=== PATIENT | female | born 1955 | race Caucasian/White ===

== ENCOUNTER 2016-06-26 05:33 | Inpatient (IN) ==
[2016-06-26] MEDS ORDERED: ALBUTEROL/IPRATROPIUM 3 ML NEB RESP TX STA ×2 (06:07→06:36)
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
[2016-06-26 06:42] LABS: Basophils # 0.1 10*3/uL (0.0-0.2); Basophils % 0.3 % (0.0-0.8); Hematocrit 41.9 VOL% (35.7-47.0); Hemoglobin 13.9 GM/DL (12.0-16.0); Immature Granulocytes % 1.2 %; Immature Granulocytes Absolute 0.33 #; Lymphocytes % 3.4 % (21.3-54.2); Mean Corpuscular HGB Conc 33.2 GM/DL (32-36); Mean Corpuscular Hemoglobin 31 PG (27-34); Mean Corpuscular Volume 94.8 FL (87-102); Mean Platelet Volume 9.8 FL (9.6-12.0); Monocytes # 2.4 10*3/uL (0.11-0.8); Monocytes % 8.5 % (1.7-12.7); Neutrophils # 24.2 10*3/uL (1.4-7.4); Neutrophils % 86.6 % (38.7-73.9); Platelet Count 318 10*3/uL (130-400); Red Blood Count 4.42 10*6/uL (3.8-5.5)
[2016-06-26] MEDS ORDERED: HYDROcodone/CHLORPHENIRAMINE ER 5 ML UDCUP PO ONE ×2 (06:43→06:44)
[2016-06-26 06:57] LABS: Albumin 3.8 G/DL (3.4-5.0); Bilirubin,Total 0.6 MG/DL (0.2-1.0); Calcium 9.7 MG/DL (8.5-10.1); Potassium 5.2 MMOL/L (3.5-5.1); Total Protein 7.6 G/DL (6.4-8.3)
[2016-06-26] MEDS ORDERED: cefTRIAXone 1,000 MG in SODIUM CHLORIDE 0.9% 100 ML IV STA (07:13)
[2016-06-26] MEDS ORDERED: cefTRIAXone 1,000 MG VIAL ONE (07:16)
[2016-06-26] MEDS ORDERED: SODIUM CHLORIDE 0.9% 1,000 ML IV STA (07:29)
[2016-06-26] MEDS ORDERED: MYLANTA/LIDO VISC 2:1 300 ML BOTTLE SWISH/SWAL PRN (07:49)
[2016-06-26] MEDS ORDERED: ACETAMINOPHEN 325 MG TABLET PO PRN (07:49)
[2016-06-26] MEDS ORDERED: PROMETHAZINE INJ 25 MG in SODIUM CHLORIDE 0.9% 50 ML IV PRN (07:49)
[2016-06-26] MEDS ORDERED: LACTULOSE 20 GM/30 ML UDCUP PO PRN (07:49)
[2016-06-26] MEDS ORDERED: chlorproMAZINE 25 MG TABLET PO PRN (07:49)
[2016-06-26] MEDS ORDERED: chlorproMAZINE INJ 25 MG in SODIUM CHLORIDE 0.9% 100 ML IV PRN (07:49)
[2016-06-26] MEDS ORDERED: chlorproMAZINE INJ 50 MG in SODIUM CHLORIDE 0.9% 100 ML IV PRN (07:49)
[2016-06-26] MEDS ORDERED: traMADol 50 MG TABLET PO PRN (07:49)
[2016-06-26] MEDS ORDERED: MAGNESIUM HYDROXIDE SUSP 30 ML UDCUP PO PRN (07:49)
[2016-06-26] MEDS ORDERED: MYLANTA/LIDO VISC 2:1 300 ML BOTTLE SWISH/SPIT PRN (07:49)
[2016-06-26] MEDS ORDERED: TEMAZEPAM 7.5 MG CAPSULE PO PRN (07:49)
[2016-06-26] MEDS ORDERED: diphenhydrAMINE CAP 25 MG CAPSULE PO PRN (07:49)
[2016-06-26] MEDS ORDERED: BENZTROPINE 2 MG/2 ML AMP IV PRN (07:49)
[2016-06-26] MEDS ORDERED: LOPERAMIDE 2 MG CAPSULE PO PRN ×2 (07:49)
--- NOTE | 2016-06-26 08:15 | XRay Report ---
XR chest 1V portable Indication: Shortness of breath. Comparison: Chest x-ray 06/05/2016. Technique: Portable AP chest was performed. Findings: The heart size appears within normal limits. The mediastinal contour and hilar structures demonstrate no significant abnormalities. Left-sided venous access device is stable. Reticular interstitial markings in the lung bases have minimally increased particularly in the right lung base. This finding is nonspecific but could reflect minimal interstitial edema or evidence of interstitial pneumonia. Bones and soft tissues demonstrate no evidence of acute pathology. Impression: 1. Minimal interval worsening of reticular interstitial markings in the lung bases is nonspecific with differential considerations including interstitial edema interstitial pneumonia. 06/26/2016 8:12 AM PROCEDURE INTERPRETED AT [facility] DEPARTMENT OF RADIOLOGY Final Report Signed by: Dr. Tru Garrett
[2016-06-26 08:24] LABS: Uric Acid 5.6 MG/DL (2.6-6.0)
[2016-06-26] MEDS ORDERED: NAPROXEN 500 MG TABLET PO PRN (09:14)
[2016-06-26] MEDS ORDERED: ALBUTEROL 2.5 MG/3 ML NEB RESP TX PRN (09:14)
[2016-06-26] MEDS ORDERED: ROTIGOTINE TRANSDERM PRN (09:14)
[2016-06-26] MEDS ORDERED: ONDANSETRON 4 MG TABLET PO PRN (09:14)
[2016-06-26] MEDS: AZITHROMYCIN INJ 500 MG in SODIUM CHLORIDE 0.9% 250 ML IV SCH (10:13)
[2016-06-26] MEDS: SODIUM CHLORIDE 0.9% 1,000 ML IV SCH (10:13)
--- NOTE | 2016-06-26 10:27 | Event Note ---
Patient admitted with several day complaints of shortness of breath and possible pneumonia. She has some expiratory wheezing and prolonged expiratory phase. Will place on IV antibiotics. History of lung cancer currently on kathy. Chaparroo
[2016-06-26 10:35] LABS: Band Neutrophils 5 % (0-10); Hypochromasia 1+; Lymphocytes 4 % (20-55); Platelet Estimate Adequate; Segmented Neutrophils 85 % (50-85); Total Cells Counted 100
[2016-06-26] MEDS: ONDANSETRON 4 MG/2 ML VIAL IV PRN (11:06)
--- NOTE | 2016-06-26 11:52 | EKG Report ---
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
[2016-06-26] MEDS ORDERED: PROTEASE PO SCH (12:00)
[2016-06-26] MEDS ORDERED: LIPASE PO SCH (12:00)
[2016-06-26] MEDS ORDERED: AMYLASE PO SCH (12:00)
[2016-06-26] MEDS: ALPRAZolam 0.25 MG TABLET PO PRN (12:22)
[2016-06-26] MEDS: GABAPENTIN 300 MG CAPSULE PO SCH ×2 (15:53→20:22)
[2016-06-26] MEDS: ALBUTEROL/IPRATROPIUM 3 ML NEB RESP TX PRN (20:11)
[2016-06-26] MEDS: guaiFENesin 200 MG/10 ML UDCUP PO PRN (23:26)
[2016-06-27] MEDS: SODIUM CHLORIDE 0.9% 1,000 ML IV SCH ×2 (05:35→05:36)
[2016-06-27] MEDS: ALPRAZolam 0.25 MG TABLET PO PRN ×2 (06:13→20:05)
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
[2016-06-27] MEDS: cefTRIAXone 1,000 MG in SODIUM CHLORIDE 0.9% 100 ML IV SCH (08:54)
[2016-06-27] MEDS: GABAPENTIN 300 MG CAPSULE PO SCH ×3 (08:55→21:23)
[2016-06-27 09:58] LABS: Apearance,Urine Slightly Hazy (Clear); Bacteria,Urine Occasional /HPF (Few); Bilirubin,Urine Negative (Negative); Blood, Urine Negative (Negative); Glucose,Urine (UA) Negative (Negative); Ketones,Urine Negative (Negative); Mucus,Urine Occasional /LPF (Occasional); Nitrite,Urine Negative (Negative); Protein,Urine 30 MG/DL; RBC,Urine 2 /HPF (0-4); Squamous Epithelial Cell,Urine Occasional /HPF (0-10); Urine Color Yellow (Yellow); Urine Specific Gravity 1.016 (1.001-1.035); Urine Urobilinogen < 2.0 EU/DL (0.2-1.0); WBC,Urine 3 /HPF (0-6)
[2016-06-27] MEDS: AZITHROMYCIN INJ 500 MG in SODIUM CHLORIDE 0.9% 250 ML IV SCH (11:23)
[2016-06-27] MEDS: ONDANSETRON 4 MG/2 ML VIAL IV PRN (14:19)
[2016-06-27] MEDS: ALBUTEROL/IPRATROPIUM 3 ML NEB RESP TX PRN ×2 (14:37→21:30)
[2016-06-28] MEDS: ALPRAZolam 0.25 MG TABLET PO PRN ×3 (05:23→18:53)
[2016-06-28 05:27] LABS: Basophils % 0.2 % (0.0-0.8); Eosinophils # 0.4 10*3/uL (0.0-0.87); Hematocrit 33.2 VOL% (35.7-47.0); Hemoglobin 10.1 GM/DL (12.0-16.0); Immature Granulocytes % 0.8 %; Lymphocytes # 1.4 10*3/uL (1.4-4.0); Lymphocytes % 11.8 % (21.3-54.2); Mean Corpuscular HGB Conc 30.4 GM/DL (32-36); Mean Corpuscular Hemoglobin 31 PG (27-34); Mean Corpuscular Volume 101.8 FL (87-102); Mean Platelet Volume 10.4 FL (9.6-12.0); Monocytes # 1.2 10*3/uL (0.11-0.8); Monocytes % 10.2 % (1.7-12.7); Platelet Count 248 10*3/uL (130-400); Red Blood Count 3.26 10*6/uL (3.8-5.5); Red Cell Distribution Width 13.1 % (9.3-17.3); White Blood Count 12.2 10*3/uL (4.5-13.71)
[2016-06-28] MEDS: ALBUTEROL/IPRATROPIUM 3 ML NEB RESP TX PRN ×2 (05:30→14:22)
[2016-06-28 06:17] LABS: Albumin 2.6 G/DL (3.4-5.0); Bilirubin,Total 0.9 MG/DL (0.2-1.0); Calcium 8.2 MG/DL (8.5-10.1); Osmolality,Calculated 275.5 MOS/KG (273-304); Potassium 4.9 MMOL/L (3.5-5.1); Total Protein 5.6 G/DL (6.4-8.3)
--- NOTE | 2016-06-28 08:34 | Oncology Progress Note ---
Oncology Subjective PN Interval history: Patient with PDL 1 positive adenocarcinoma of the lung who has been on Keytruda. She was admitted with pneumonitis and acute exacerbation of severe COPD. This may be complicated by the fact that she could have a component of immune pneumonitis secondary to the Keytruda. I am rechecking x-rays on her. She is hypertensive. She has been on COOPER inhibitor and I am not going to restart it. I will start her on a beta-shyanne. She is still hoarse and tachypneic. She still has a prolonged expiratory phase of respiration with wheezing throughout the expiratory phase. Heart sounds are normal. She is oriented and alert. Her voice is very hoarse. Exam - Constitutional Vitals: Period Temp Pulse Resp BP Sys/Chang Pulse Ox Last 24 Hr 96.1 F-97.1 F 82-107 18-22 111-191/56-89 89-99 Results - Labs CBC & BMP: 06/28/16 04:37 06/28/16 04:00 Specialty Discharge - Follow Up or Referrals - Discharge Medications No Action Rotigotine [Neupro 2 mg/24 hr Patch] 1 patch TRANSDERM DAILY PRN PRN Reason: Restlessness Ondansetron HCl 4 mg PO Q6H PRN PRN Reason: Nausea Lipase/Protease/Amylase [Creon 24,000 Units] 2 capsule PO TID W/MEALS Albuterol Neb [Proventil Neb] 2.5 mg RESP TX BID PRN PRN Reason: Shortness Of Breath/Wheezing Lisinopril 40 mg PO DAILY Naproxen [Naprosyn Tab] 500 mg PO Q12H PRN PRN Reason: Restlessness Omeprazole [Prilosec] 40 mg PO DAILY FLUoxetine [PROzac] 40 mg PO DAILY Gabapentin Cap/Tab [Neurontin Cap/Tab] 300 mg PO TID Albuterol Sulfate [Ventolin HFA] 2 puff INH Q6H PRN PRN Reason: Shortness Of Breath/Wheezing Albuterol Sulfate [Ventolin HFA] 2 puff INH Q4H PRN PRN Reason: Shortness Of Breath/Wheezing
[2016-06-28] MEDS: SODIUM CHLORIDE 0.9% 1,000 ML IV SCH (09:03)
--- NOTE | 2016-06-28 09:15 | XRay Report ---
XR chest 2V Indication: Shortness of breath Comparison: One June 2016 Findings: The heart and mediastinum are stable in size and configuration. Left subclavian Port-A-Cath is unchanged in position. The pulmonary vascularity is normal in caliber. There is increasing the right lower lung density in the periphery and possible small effusion. No other lung infiltrates, effusions, pneumothorax or other abnormality is demonstrated. Impression: Slight increased right lower lung density and small effusion. No other significant changes. PROCEDURE INTERPRETED AT [facility] DEPARTMENT OF RADIOLOGY Final Report Signed by: Dr. Trey Estevez
[2016-06-28] MEDS: CARVEDILOL 12.5 MG TABLET PO SCH ×2 (09:30→18:19)
[2016-06-28] MEDS: GABAPENTIN 300 MG CAPSULE PO SCH ×3 (09:30→21:08)
[2016-06-28] MEDS: cefTRIAXone 1,000 MG in SODIUM CHLORIDE 0.9% 100 ML IV SCH (09:31)
[2016-06-28] MEDS: AZITHROMYCIN INJ 500 MG in SODIUM CHLORIDE 0.9% 250 ML IV SCH (10:08)
[2016-06-28] MEDS: ONDANSETRON 4 MG/2 ML VIAL IV PRN (14:23)
[2016-06-28] MEDS ORDERED: FUROSEMIDE 40 MG/4 ML VIAL ONE (14:33)
[2016-06-28] MEDS ORDERED: FUROSEMIDE 40 MG/4 ML VIAL IV ONE (14:35)
[2016-06-28] MEDS ORDERED: hydrALAZINE 20 MG/1 ML VIAL IV PRN (18:22)
--- NOTE | 2016-06-28 18:22 | Oncology Progress Note ---
Oncology Subjective PN Interval history: I am proceeding with Rei-Valery Ms. Cid. Her pulmonary congestion is getting worse and this may be in part due to the Keytruda. I am going to have to reverse the effects of the Keytruda and plan to resume it again later. She is strongly PDL 1 positive but she has begun to worsen from the standpoint of her COPD. Need to treat it with steroids. I am also increasing her carvedilol for her blood pressure control. In addition I am going to order Apresoline as needed for blood pressure control. Exam - Constitutional Vitals: Period Temp Pulse Resp BP Sys/Chang Pulse Ox Last 24 Hr 96.2 F-97.1 F 76-107 18-28 98-191/50-89 88-99 Results - Labs CBC & BMP: 06/28/16 04:37 06/28/16 04:00 Specialty Discharge - Follow Up or Referrals - Discharge Medications No Action Rotigotine [Neupro 2 mg/24 hr Patch] 1 patch TRANSDERM DAILY PRN PRN Reason: Restlessness Ondansetron HCl 4 mg PO Q6H PRN PRN Reason: Nausea Lipase/Protease/Amylase [Creon 24,000 Units] 2 capsule PO TID W/MEALS Albuterol Neb [Proventil Neb] 2.5 mg RESP TX BID PRN PRN Reason: Shortness Of Breath/Wheezing Lisinopril 40 mg PO DAILY Naproxen [Naprosyn Tab] 500 mg PO Q12H PRN PRN Reason: Restlessness Omeprazole [Prilosec] 40 mg PO DAILY FLUoxetine [PROzac] 40 mg PO DAILY Gabapentin Cap/Tab [Neurontin Cap/Tab] 300 mg PO TID Albuterol Sulfate [Ventolin HFA] 2 puff INH Q6H PRN PRN Reason: Shortness Of Breath/Wheezing Albuterol Sulfate [Ventolin HFA] 2 puff INH Q4H PRN PRN Reason: Shortness Of Breath/Wheezing
[2016-06-28] MEDS ORDERED: CARVEDILOL 25 MG TABLET PO ONE (18:39)
[2016-06-28] MEDS: methylPREDNISolone SOD SUC INJ 500 MG in SODIUM CHLORIDE 0.9% 100 ML IV SCH (19:55)
[2016-06-29] MEDS: SODIUM CHLORIDE 0.9% 1,000 ML IV SCH ×2 (01:30→17:05)
[2016-06-29] MEDS: methylPREDNISolone SOD SUC INJ 500 MG in SODIUM CHLORIDE 0.9% 100 ML IV SCH ×2 (07:18→18:15)
--- NOTE | 2016-06-29 07:59 | Oncology Progress Note ---
Oncology Subjective PN Interval history: I started Ms. Cid on Solu-Medrol yesterday. This will temporarily reverse the effects of the Keytruda that she has been receiving for PDL 1 positive adenocarcinoma of the lung. She had severe bronchospasm yesterday. In addition , she has a severe cough. I stopped her COOPER inhibitor and have placed her on a beta-shyanne which may actually worsen her bronchospasm but at least the possibility of an COOPER inhibitor causing hematologic side effects or worsening the cough has been remedied. She is critically ill. However, she appears to have had a good response to treatment of her lung cancer with the Keytruda. Her lung cancer is strongly PDL1 positive. She still has bronchospasm with prolonged expiratory phase of respiration and faint wheezing. Heart sounds are normal. She is extremely hoarse. She has been evaluated for this and it is not due to recurrent laryngeal nerve paralysis. I am consulting Dr. Stuart De Jesus to assist in management of her COPD. I think she has had a good response to the Keytruda and I intend to pick it back up a few more weeks but we are effectively reversing the effects of it presently with the corticosteroid therapy. Exam - Constitutional Vitals: Period Temp Pulse Resp BP Sys/Chang Pulse Ox Last 24 Hr 96.2 F-98 F 68-94 18-28 98-185/50-88 88-100 Results - Labs CBC & BMP: 06/28/16 04:37 06/28/16 04:00 Specialty Discharge - Follow Up or Referrals - Discharge Medications No Action Rotigotine [Neupro 2 mg/24 hr Patch] 1 patch TRANSDERM DAILY PRN PRN Reason: Restlessness Ondansetron HCl 4 mg PO Q6H PRN PRN Reason: Nausea Lipase/Protease/Amylase [Creon 24,000 Units] 2 capsule PO TID W/MEALS Albuterol Neb [Proventil Neb] 2.5 mg RESP TX BID PRN PRN Reason: Shortness Of Breath/Wheezing Lisinopril 40 mg PO DAILY Naproxen [Naprosyn Tab] 500 mg PO Q12H PRN PRN Reason: Restlessness Omeprazole [Prilosec] 40 mg PO DAILY FLUoxetine [PROzac] 40 mg PO DAILY Gabapentin Cap/Tab [Neurontin Cap/Tab] 300 mg PO TID Albuterol Sulfate [Ventolin HFA] 2 puff INH Q6H PRN PRN Reason: Shortness Of Breath/Wheezing Albuterol Sulfate [Ventolin HFA] 2 puff INH Q4H PRN PRN Reason: Shortness Of Breath/Wheezing
[2016-06-29] MEDS: CARVEDILOL 25 MG TABLET PO SCH ×2 (08:48→17:05)
[2016-06-29] MEDS: GABAPENTIN 300 MG CAPSULE PO SCH ×3 (08:48→20:54)
[2016-06-29] MEDS: cefTRIAXone 1,000 MG in SODIUM CHLORIDE 0.9% 100 ML IV SCH (08:48)
[2016-06-29] MEDS: ALBUTEROL/IPRATROPIUM 3 ML NEB RESP TX PRN (08:48)
[2016-06-29] MEDS: ALPRAZolam 0.25 MG TABLET PO PRN (08:55)
[2016-06-29] MEDS: AZITHROMYCIN INJ 500 MG in SODIUM CHLORIDE 0.9% 250 ML IV SCH (10:12)
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
[2016-06-29] MEDS: ALBUTEROL/IPRATROPIUM 3 ML NEB RESP TX SCH (20:29)
[2016-06-30] MEDS: ALBUTEROL/IPRATROPIUM 3 ML NEB RESP TX SCH ×7 (00:20→23:57)
[2016-06-30] MEDS: guaiFENesin 200 MG/10 ML UDCUP PO PRN (04:25)
[2016-06-30] MEDS: ALPRAZolam 0.25 MG TABLET PO PRN ×2 (04:30→15:05)
[2016-06-30] MEDS: methylPREDNISolone SOD SUC INJ 500 MG in SODIUM CHLORIDE 0.9% 100 ML IV SCH ×2 (07:16→18:22)
[2016-06-30] MEDS: SODIUM CHLORIDE 0.9% 1,000 ML IV SCH (07:16)
--- NOTE | 2016-06-30 08:25 | Pulmonology Progress Note ---
Pulmonary - PN: Subj Interval history: Patient is 60-year-old white lady that has a history of lung cancer. She also has significant COPD. She comes in with an exacerbation and probable pneumonia. She says she feels like she is breathing a little better today. She is still very hoarse and coughing a lot. She gets short of breath quite easily. She is tolerating her medicines okay. She is getting high-dose steroids now. She is eating a little but really can't do much activity. Exam (Progress Note) - Constitutional Vitals: Period Temp Pulse Resp BP Sys/Chang Pulse Ox Last 24 Hr 96.0 F-97.0 F 64-115 18-24 96-142/51-78 88-99 Exam: General appearance: normal weight, mild distress, she looks reasonably comfortable lying in bed. - Head Head exam: Present: normal inspection - Eye Eye exam: Present: EOMI. Absent: scleral icterus Pupils: Present: BHARATH - ENT ENT exam: Present: She is very hoarse. - Neck Neck exam: Present: normal inspection. Absent: lymphadenopathy, thyromegaly - Respiratory Respiratory exam: Present: She has very prolonged expiration with coarse breath sounds and rhonchi present. - Cardiovascular Cardiovascular exam: Present: regular rate and rhythm. Absent: gallop, systolic murmur - GI/Abdominal GI/Abdominal exam: Present: normal bowel sounds, soft. Absent: organomegaly, tenderness, rebound - Extremities Exam Extremities exam: Absent: calf tenderness, edema, she has no signs of phlebitis. - Neurological Exam Neurological exam: Present: alert, oriented X3 - Psychiatric Psychiatric exam: Present: depressed - Skin Skin exam: Present: warm, dry Results - Labs CBC & BMP: 06/28/16 04:37 06/28/16 04:00 Labs: Blood and urine cultures have been negative. Assessment and Plan (1) COPD (chronic obstructive pulmonary disease) Status: Acute Assessment and plan: The patient has been having a COPD exacerbation with coughing and wheezing and gets very short of breath with activity. She seems to be tolerating her medicines okay. She still has considerable bronchitis. She may need a therapeutic bronchoscopy at some point. Current Visit: No (2) Adenocarcinoma of right lung Status: Acute Assessment and plan: The patient has right upper lobe cancer but is responding fairly well. It is hard to see a definite mass on her chest x-ray. Current Visit: Yes (3) Pneumonia Status: Acute Assessment and plan: Patient may have mild right lower lobe pneumonia. She is getting antibiotic therapy. She seems to be tolerating treatment okay so far. Current Visit: Yes Specialty Discharge - Follow Up or Referrals - Discharge Medications No Action Rotigotine [Neupro 2 mg/24 hr Patch] 1 patch TRANSDERM DAILY PRN PRN Reason: Restlessness Ondansetron HCl 4 mg PO Q6H PRN PRN Reason: Nausea Lipase/Protease/Amylase [Creon 24,000 Units] 2 capsule PO TID W/MEALS Albuterol Neb [Proventil Neb] 2.5 mg RESP TX BID PRN PRN Reason: Shortness Of Breath/Wheezing Lisinopril 40 mg PO DAILY Naproxen [Naprosyn Tab] 500 mg PO Q12H PRN PRN Reason: Restlessness Omeprazole [Prilosec] 40 mg PO DAILY FLUoxetine [PROzac] 40 mg PO DAILY Gabapentin Cap/Tab [Neurontin Cap/Tab] 300 mg PO TID Albuterol Sulfate [Ventolin HFA] 2 puff INH Q6H PRN PRN Reason: Shortness Of Breath/Wheezing Albuterol Sulfate [Ventolin HFA] 2 puff INH Q4H PRN PRN Reason: Shortness Of Breath/Wheezing
--- NOTE | 2016-06-30 08:51 | Oncology Progress Note ---
Oncology Subjective PN Interval history: Ms. Cid remains hospitalized with an acute exacerbation of COPD that may be complicated by pulmonary toxicity from Keytruda. She has an unresectable adenocarcinoma of the lung that is strongly PDL 1 positive and she has been on Keytruda with a good response. She had previously responded to conventional chemotherapy and then progressed. Dr. De Jesus saw her yesterday. I appreciate his assistance in managing her case. She has significantly less bronchospasm today and her expiratory phase of respiration is slightly less prolonged. However she still has some significant COPD. She is on large doses of corticosteroids which I will continue for at least another day before tapering. Exam - Constitutional Vitals: Period Temp Pulse Resp BP Sys/Chang Pulse Ox Last 24 Hr 96.0 F-97.0 F 64-115 18-24 96-142/51-78 88-99 Results - Labs CBC & BMP: 06/28/16 04:37 06/28/16 04:00 Specialty Discharge - Follow Up or Referrals - Discharge Medications No Action Rotigotine [Neupro 2 mg/24 hr Patch] 1 patch TRANSDERM DAILY PRN PRN Reason: Restlessness Ondansetron HCl 4 mg PO Q6H PRN PRN Reason: Nausea Lipase/Protease/Amylase [Creon 24,000 Units] 2 capsule PO TID W/MEALS Albuterol Neb [Proventil Neb] 2.5 mg RESP TX BID PRN PRN Reason: Shortness Of Breath/Wheezing Lisinopril 40 mg PO DAILY Naproxen [Naprosyn Tab] 500 mg PO Q12H PRN PRN Reason: Restlessness Omeprazole [Prilosec] 40 mg PO DAILY FLUoxetine [PROzac] 40 mg PO DAILY Gabapentin Cap/Tab [Neurontin Cap/Tab] 300 mg PO TID Albuterol Sulfate [Ventolin HFA] 2 puff INH Q6H PRN PRN Reason: Shortness Of Breath/Wheezing Albuterol Sulfate [Ventolin HFA] 2 puff INH Q4H PRN PRN Reason: Shortness Of Breath/Wheezing
[2016-06-30] MEDS: GABAPENTIN 300 MG CAPSULE PO SCH ×3 (09:13→21:49)
[2016-06-30] MEDS: CARVEDILOL 25 MG TABLET PO SCH ×2 (09:13→18:21)
[2016-06-30] MEDS: cefTRIAXone 1,000 MG in SODIUM CHLORIDE 0.9% 100 ML IV SCH (09:14)
[2016-06-30] MEDS: AZITHROMYCIN INJ 500 MG in SODIUM CHLORIDE 0.9% 250 ML IV SCH (10:07)
[2016-07-01] MEDS: SODIUM CHLORIDE 0.9% 1,000 ML IV SCH ×2 (01:19→14:27)
[2016-07-01] MEDS: ALBUTEROL/IPRATROPIUM 3 ML NEB RESP TX SCH ×5 (03:56→20:06)
[2016-07-01] MEDS: methylPREDNISolone SOD SUC INJ 500 MG in SODIUM CHLORIDE 0.9% 100 ML IV SCH (06:27)
[2016-07-01] MEDS: guaiFENesin 200 MG/10 ML UDCUP PO PRN (06:43)
[2016-07-01] MEDS: CARVEDILOL 25 MG TABLET PO SCH ×2 (08:40→16:59)
[2016-07-01] MEDS: ALPRAZolam 0.25 MG TABLET PO PRN ×2 (08:41→14:27)
[2016-07-01] MEDS: cefTRIAXone 1,000 MG in SODIUM CHLORIDE 0.9% 100 ML IV SCH (08:41)
[2016-07-01] MEDS: GABAPENTIN 300 MG CAPSULE PO SCH ×3 (08:43→20:29)
[2016-07-01] MEDS: AZITHROMYCIN INJ 500 MG in SODIUM CHLORIDE 0.9% 250 ML IV SCH (10:22)
--- NOTE | 2016-07-01 11:21 | Pulmonology Progress Note ---
Pulmonary - PN: Subj Interval history: This is a 60-year-old female who has COPD and lung cancer. She has been receiving chemotherapy. There has been some improvement in her cancer. She was admitted with pneumonia. Patient is debilitated. She looks comfortable today and says she is a little better. She has no new requests. She has no new complaints. Lab was reviewed. Medicines are reviewed. Old chest x-rays were reviewed. Last one was done 06/28/2016. Physical exam. Vital signs. See below Chest. Loose large airway congestion Heart. No gallop Abdomen. Nontender bowel sounds are present Lower extremities. Nothing to suggest deep venous thrombophlebitis Neck. Symmetrical. No meningismus. Eyes appear to be normal lips and tongue were normal. The remainder the physical exam was noncontributory. Plan. 1. Continue present regimen. 2. I made no changes today. Exam (Progress Note) - Constitutional Vitals: Period Temp Pulse Resp BP Sys/Chang Pulse Ox Last 24 Hr 96.3 F-97.2 F 67-77 14-24 109-179/58-86 96-99 Results - Labs CBC & BMP: 06/28/16 04:37 06/28/16 04:00 Specialty Discharge - Follow Up or Referrals - Discharge Medications No Action Rotigotine [Neupro 2 mg/24 hr Patch] 1 patch TRANSDERM DAILY PRN PRN Reason: Restlessness Ondansetron HCl 4 mg PO Q6H PRN PRN Reason: Nausea Lipase/Protease/Amylase [Creon 24,000 Units] 2 capsule PO TID W/MEALS Albuterol Neb [Proventil Neb] 2.5 mg RESP TX BID PRN PRN Reason: Shortness Of Breath/Wheezing Lisinopril 40 mg PO DAILY Naproxen [Naprosyn Tab] 500 mg PO Q12H PRN PRN Reason: Restlessness Omeprazole [Prilosec] 40 mg PO DAILY FLUoxetine [PROzac] 40 mg PO DAILY Gabapentin Cap/Tab [Neurontin Cap/Tab] 300 mg PO TID Albuterol Sulfate [Ventolin HFA] 2 puff INH Q6H PRN PRN Reason: Shortness Of Breath/Wheezing Albuterol Sulfate [Ventolin HFA] 2 puff INH Q4H PRN PRN Reason: Shortness Of Breath/Wheezing
[2016-07-01] MEDS ORDERED: methylPREDNISolone SOD SUC INJ 125 MG in SODIUM CHLORIDE 0.9% 100 ML IV SCH (12:00)
--- NOTE | 2016-07-01 12:02 | Oncology Progress Note ---
Oncology Subjective PN Interval history: Ms. Cid has some worsening of her COPD today. She has underlying PDL 1 positive adenocarcinoma lung that has probably achieved a complete remission using Keytruda. I reversed the Keytruda by administering corticosteroids starting day before yesterday. I am reducing the dose of the steroids today. It appears that most of her problems now are the severe COPD for which she suffers. She has a very prolonged expiratory phase of respiration. She is hoarse but she has been evaluated for this by ENT. She does not have recurrent laryngeal nerve paralysis. Heart sounds are normal. Her breath sounds are slightly coarse throughout. None are markedly decreased. She is fully oriented and alert. Exam - Constitutional Vitals: Period Temp Pulse Resp BP Sys/Chang Pulse Ox Last 24 Hr 96.3 F-97.2 F 67-77 14-24 109-179/58-86 96-99 Results - Labs CBC & BMP: 06/28/16 04:37 06/28/16 04:00 Specialty Discharge - Follow Up or Referrals - Discharge Medications No Action Rotigotine [Neupro 2 mg/24 hr Patch] 1 patch TRANSDERM DAILY PRN PRN Reason: Restlessness Ondansetron HCl 4 mg PO Q6H PRN PRN Reason: Nausea Lipase/Protease/Amylase [Creon 24,000 Units] 2 capsule PO TID W/MEALS Albuterol Neb [Proventil Neb] 2.5 mg RESP TX BID PRN PRN Reason: Shortness Of Breath/Wheezing Lisinopril 40 mg PO DAILY Naproxen [Naprosyn Tab] 500 mg PO Q12H PRN PRN Reason: Restlessness Omeprazole [Prilosec] 40 mg PO DAILY FLUoxetine [PROzac] 40 mg PO DAILY Gabapentin Cap/Tab [Neurontin Cap/Tab] 300 mg PO TID Albuterol Sulfate [Ventolin HFA] 2 puff INH Q6H PRN PRN Reason: Shortness Of Breath/Wheezing Albuterol Sulfate [Ventolin HFA] 2 puff INH Q4H PRN PRN Reason: Shortness Of Breath/Wheezing
[2016-07-01] MEDS: BENZONATATE 100 MG CAPSULE PO PRN (14:27)
[2016-07-02] MEDS: ALBUTEROL/IPRATROPIUM 3 ML NEB RESP TX SCH ×6 (00:25→19:09)
[2016-07-02] MEDS: guaiFENesin 200 MG/10 ML UDCUP PO PRN (03:00)
[2016-07-02] MEDS: methylPREDNISolone SOD SUC INJ 125 MG in SODIUM CHLORIDE 0.9% 100 ML IV SCH ×2 (03:00→13:38)
[2016-07-02] MEDS: ALPRAZolam 0.25 MG TABLET PO PRN ×2 (03:02→09:27)
[2016-07-02] MEDS: ONDANSETRON 4 MG/2 ML VIAL IV PRN (05:50)
[2016-07-02 06:06] LABS: Basophils % 0.2 % (0.0-0.8); Hematocrit 33.8 VOL% (35.7-47.0); Hemoglobin 10.6 GM/DL (12.0-16.0); Immature Granulocytes % 2.9 %; Immature Granulocytes Absolute 0.17 #; Lymphocytes # 0.7 10*3/uL (1.4-4.0); Lymphocytes % 11.5 % (21.3-54.2); Mean Corpuscular HGB Conc 31.4 GM/DL (32-36); Mean Corpuscular Hemoglobin 31 PG (27-34); Mean Corpuscular Volume 98.3 FL (87-102); Mean Platelet Volume 9.8 FL (9.6-12.0); Monocytes # 0.3 10*3/uL (0.11-0.8); Monocytes % 5.8 % (1.7-12.7); Neutrophils # 4.7 10*3/uL (1.4-7.4); Neutrophils % 79.6 % (38.7-73.9); Platelet Count 335 10*3/uL (130-400); Red Blood Count 3.44 10*6/uL (3.8-5.5); Red Cell Distribution Width 12.8 % (9.3-17.3); White Blood Count 5.8 10*3/uL (4.5-13.71)
[2016-07-02 06:53] LABS: Albumin 2.7 G/DL (3.4-5.0); Bilirubin,Total 1.2 MG/DL (0.2-1.0); Calcium 8.3 MG/DL (8.5-10.1); Osmolality,Calculated 282.4 MOS/KG (273-304); Potassium 5.1 MMOL/L (3.5-5.1); Total Protein 5.5 G/DL (6.4-8.3)
[2016-07-02] MEDS: SODIUM CHLORIDE 0.9% 1,000 ML IV SCH (07:34)
[2016-07-02] MEDS: BENZONATATE 100 MG CAPSULE PO PRN ×2 (09:06→13:38)
[2016-07-02] MEDS: cefTRIAXone 1,000 MG in SODIUM CHLORIDE 0.9% 100 ML IV SCH (09:26)
[2016-07-02] MEDS: GABAPENTIN 300 MG CAPSULE PO SCH ×3 (09:27→21:44)
[2016-07-02] MEDS: CARVEDILOL 25 MG TABLET PO SCH ×2 (09:27→18:40)
[2016-07-02] MEDS: AZITHROMYCIN INJ 500 MG in SODIUM CHLORIDE 0.9% 250 ML IV SCH (10:38)
--- NOTE | 2016-07-02 12:05 | Pulmonology Progress Note ---
Pulmonary - PN: Subj Interval history: 07/01/2016. This is a 60-year-old female who has COPD and lung cancer. She has been receiving chemotherapy. There has been some improvement in her cancer. She was admitted with pneumonia. Patient is debilitated. She looks comfortable today and says she is a little better. She has no new requests. She has no new complaints. Lab was reviewed. Medicines are reviewed. Old chest x-rays were reviewed. Last one was done 06/28/2016. 07/02/2016. Patient states she was up all night with restless leg syndrome. She is found a medicine which works but pharmacy does not carry it. Dr. Thao will take a look and help advise what should be done. Microbiology is negative. White count 7300. H&H is 10.0/32.0. Sodium is 148. Potassium 3.8. Creatinine is 0.6 BUN is 10. There were no new requests other than those concerning her restless leg syndrome. Physical exam. Vital signs. See below Chest. Loose large airway congestion has improved. Chest is hyperinflated and expiration is prolonged and incomplete. Heart. No gallop Abdomen. Nontender bowel sounds are present Lower extremities. Nothing to suggest deep venous thrombophlebitis Neck. Symmetrical. No meningismus. Eyes appear to be normal lips and tongue were normal. The remainder the physical exam was noncontributory. Plan. 1. Continue present regimen. 2. I made no changes today. 3. Restless leg syndrome is a problem. Patient is found a medicine that helps but pharmacy does not carry it. Exam (Progress Note) - Constitutional Vitals: Period Temp Pulse Resp BP Sys/Chang Pulse Ox Last 24 Hr 96.5 F-97.4 F 60-103 16-23 141-158/66-75 95-100 Results - Labs CBC & BMP: 07/02/16 04:00 07/02/16 04:00 Specialty Discharge - Follow Up or Referrals - Discharge Medications No Action Rotigotine [Neupro 2 mg/24 hr Patch] 1 patch TRANSDERM DAILY PRN PRN Reason: Restlessness Ondansetron HCl 4 mg PO Q6H PRN PRN Reason: Nausea Lipase/Protease/Amylase [Creon 24,000 Units] 2 capsule PO TID W/MEALS Albuterol Neb [Proventil Neb] 2.5 mg RESP TX BID PRN PRN Reason: Shortness Of Breath/Wheezing Lisinopril 40 mg PO DAILY Naproxen [Naprosyn Tab] 500 mg PO Q12H PRN PRN Reason: Restlessness Omeprazole [Prilosec] 40 mg PO DAILY FLUoxetine [PROzac] 40 mg PO DAILY Gabapentin Cap/Tab [Neurontin Cap/Tab] 300 mg PO TID Albuterol Sulfate [Ventolin HFA] 2 puff INH Q6H PRN PRN Reason: Shortness Of Breath/Wheezing Albuterol Sulfate [Ventolin HFA] 2 puff INH Q4H PRN PRN Reason: Shortness Of Breath/Wheezing
--- NOTE | 2016-07-02 12:32 | Oncology Progress Note ---
Oncology Subjective PN Interval history: This patient has restless leg syndrome. Her prescription medication for it is at home and she has no one to get it. The pharmacy refuses to supply it. This is a patient with severe COPD and a history of adenocarcinoma of the lung that is PDL 1 positive. She is actually in an apparent complete remission from the lung cancer which she was admitted with extremely severe COPD. She is anemic, however this is not serious enough to require transfusion. She is complaining about dyspnea and she still has a very prolonged expiratory phase of respiration with relatively silent breath sounds. There are a few faint wheezes but she is really not moving much air. At this point, her lung cancer is not a problem, it is her COPD that is causing most of her difficulty. She is not happy about being denied her home medication and we will ask the patient advocate to check on this tomorrow. Exam - Constitutional Vitals: Period Temp Pulse Resp BP Sys/Chang Pulse Ox Last 24 Hr 96.5 F-97.4 F 60-103 16-23 141-158/66-75 95-100 Results - Labs CBC & BMP: 07/02/16 04:00 07/02/16 04:00 Specialty Discharge - Follow Up or Referrals - Discharge Medications No Action Rotigotine [Neupro 2 mg/24 hr Patch] 1 patch TRANSDERM DAILY PRN PRN Reason: Restlessness Ondansetron HCl 4 mg PO Q6H PRN PRN Reason: Nausea Lipase/Protease/Amylase [Creon 24,000 Units] 2 capsule PO TID W/MEALS Albuterol Neb [Proventil Neb] 2.5 mg RESP TX BID PRN PRN Reason: Shortness Of Breath/Wheezing Lisinopril 40 mg PO DAILY Naproxen [Naprosyn Tab] 500 mg PO Q12H PRN PRN Reason: Restlessness Omeprazole [Prilosec] 40 mg PO DAILY FLUoxetine [PROzac] 40 mg PO DAILY Gabapentin Cap/Tab [Neurontin Cap/Tab] 300 mg PO TID Albuterol Sulfate [Ventolin HFA] 2 puff INH Q6H PRN PRN Reason: Shortness Of Breath/Wheezing Albuterol Sulfate [Ventolin HFA] 2 puff INH Q4H PRN PRN Reason: Shortness Of Breath/Wheezing
[2016-07-02] MEDS ORDERED: PRAMIPEXOLE 0.25 MG TABLET PO SCH (21:00)
[2016-07-03] MEDS: SODIUM CHLORIDE 0.9% 1,000 ML IV SCH ×3 (00:11→17:42)
[2016-07-03] MEDS: ALBUTEROL/IPRATROPIUM 3 ML NEB RESP TX SCH ×6 (00:18→20:58)
[2016-07-03] MEDS: methylPREDNISolone SOD SUC INJ 125 MG in SODIUM CHLORIDE 0.9% 100 ML IV SCH ×2 (02:29→15:07)
[2016-07-03] MEDS: guaiFENesin 200 MG/10 ML UDCUP PO PRN (07:09)
--- NOTE | 2016-07-03 07:23 | Oncology Progress Note ---
Oncology Subjective PN Interval history: Ms. Cid remains hospitalized with severe respiratory distress due to severe COPD. She has underlying adenocarcinoma of the lung that is PDL1 positive. We have reverse the effects of the Keytruda which she has had an excellent response to treatment. Her problem presently is her severe COPD. She needs to be considered possibly for some type of care home facility or swing bed at this point. She has multiple complaints, some of which we cannot really fix. She has severe COPD. She has restless leg syndrome in the hospital does not provide her usual medication for it. I have started her on Mirapex and it is helpful. I think we can start working on swing bed or some other care home facility for her. I do not anticipate resuming treatment for her lung cancer anytime within the next 3-4 weeks. She is in complete remission from her adenocarcinoma of the lung. Exam - Constitutional Vitals: Period Temp Pulse Resp BP Sys/Chang Pulse Ox Last 24 Hr 96.2 F-97.1 F 59-103 18-25 147-180/65-88 95-100 Results - Labs CBC & BMP: 07/02/16 04:00 07/02/16 04:00 Specialty Discharge - Follow Up or Referrals - Discharge Medications No Action Rotigotine [Neupro 2 mg/24 hr Patch] 1 patch TRANSDERM DAILY PRN PRN Reason: Restlessness Ondansetron HCl 4 mg PO Q6H PRN PRN Reason: Nausea Lipase/Protease/Amylase [Creon 24,000 Units] 2 capsule PO TID W/MEALS Albuterol Neb [Proventil Neb] 2.5 mg RESP TX BID PRN PRN Reason: Shortness Of Breath/Wheezing Lisinopril 40 mg PO DAILY Naproxen [Naprosyn Tab] 500 mg PO Q12H PRN PRN Reason: Restlessness Omeprazole [Prilosec] 40 mg PO DAILY FLUoxetine [PROzac] 40 mg PO DAILY Gabapentin Cap/Tab [Neurontin Cap/Tab] 300 mg PO TID Albuterol Sulfate [Ventolin HFA] 2 puff INH Q6H PRN PRN Reason: Shortness Of Breath/Wheezing Albuterol Sulfate [Ventolin HFA] 2 puff INH Q4H PRN PRN Reason: Shortness Of Breath/Wheezing
--- NOTE | 2016-07-03 08:01 | XRay Report ---
History: COPD and pneumonia Date: 07/03/2016 Study: Chest x-ray AP portable Comparison exam: Chest x-ray June 28, 2016 A left subclavian Mediport type catheter is stable in position. The cardiac silhouette is borderline prominent. The mediastinal contours are unchanged. The pulmonary vasculature is not engorged. Mild right-sided pleural effusion is the same or slightly increased. Right basilar pneumonia is the same or slightly increased. There is mild subsegmental atelectasis in the left lung base. There is mild platelike scar or atelectasis in the right upper lung. The osseous structures are unchanged. Impression: Continued right basilar pneumonia and pleural effusion, the same or slightly increased PROCEDURE INTERPRETED AT [facility] DEPARTMENT OF RADIOLOGY Final Report Signed by: Dr. Jessica Krishnan
[2016-07-03] MEDS: GABAPENTIN 300 MG CAPSULE PO SCH ×3 (09:15→21:15)
[2016-07-03] MEDS: ALPRAZolam 0.25 MG TABLET PO PRN ×3 (09:15→21:14)
[2016-07-03] MEDS: CARVEDILOL 25 MG TABLET PO SCH ×2 (09:15→17:42)
[2016-07-03] MEDS: cefTRIAXone 1,000 MG in SODIUM CHLORIDE 0.9% 100 ML IV SCH (09:16)
[2016-07-03] MEDS: AZITHROMYCIN INJ 500 MG in SODIUM CHLORIDE 0.9% 250 ML IV SCH (10:52)
--- NOTE | 2016-07-03 15:49 | Physician Query Form ---
CLICK EDIT DOCUMENT TO SELECT QUERY ANSWER --> OK --> SIGN Clari Vaca RN Clinical Can Filling And Closing Machine Tender W) [phone] (f) [phone] [email or web address]: Make your selection(s) from the choices in EACH section by typing an "x" and enter comments in the comment section. Please use your independent medical judgment in providing your response. This request does not imply that any particular answer is desired or expected. CLINICAL INDICATORS: (Providers should not edit this section) Based on documentation of "severe respiratory distress due to severe COPD". O2 sats=88%. Pt. placed on 15L O2 via venture mask. O2 sats up to 100%. If possible, please further clarify the type and acuity of respiratory diagnosis : ACUITY: ( ) Acute ( ) Chronic (x ) Acute on Chronic TYPE: (x ) Respiratory failure with hypoxia ( ) Respiratory failure with hypercapnia ( ) Respiratory Arrest ( ) Postprocedural/postoperative respiratory failure ( ) Respiratory Insufficiency ( ) ARDS (Adult/Acute Respiratory Distress Syndrome) ( ) Other, please specify: ( ) Clinically unable to determine Recognized criteria for respiratory failure PH <7.35 or >7.45 PO2 <60 PCO2 >50 RR >24 O2 Sat <90% on RA or <95% on O2 Use of accessory muscles Unable to speak in full sentences Intubation is not required COMMENTS: Use of terms such as suspected, likely, or probable (associated with a specific diagnosis that is being evaluated, monitored, or treated as if it exists) are acceptable and can be restated in the discharge summary if not ruled out. MTDD
--- NOTE | 2016-07-03 17:57 | Pulmonology Progress Note ---
Pulmonary - PN: Subj Interval history: Patient is 60-year-old white lady that has a history of lung cancer. She also has significant COPD. She comes in with an exacerbation and probable pneumonia. She has been getting antibiotics and steroids and respiratory therapy. She looks much better today and is sitting up in a chair. She is still using oxygen but seems to be breathing much better. She feels like her cough and shortness of breath have improved. Overall she looks like she is doing better. Exam (Progress Note) - Constitutional Vitals: Period Temp Pulse Resp BP Sys/Chang Pulse Ox Last 24 Hr 96.0 F-97.1 F 57-72 18-25 139-184/65-81 95-100 Exam: General appearance: normal weight, no distress, she looks much more alert and comfortable sitting up in a chair. - Head Head exam: Present: normal inspection - Eye Eye exam: Present: EOMI. Absent: scleral icterus Pupils: Present: BHARATH - ENT ENT exam: Present: She is very hoarse. - Neck Neck exam: Present: normal inspection. Absent: lymphadenopathy, thyromegaly - Respiratory Respiratory exam: Present: She has very prolonged expiration with coarse breath sounds she seems to be moving air better with less wheezing. - Cardiovascular Cardiovascular exam: Present: regular rate and rhythm. Absent: gallop, systolic murmur - GI/Abdominal GI/Abdominal exam: Present: normal bowel sounds, soft. Absent: organomegaly, tenderness, rebound - Extremities Exam Extremities exam: Absent: calf tenderness, edema, she has no signs of phlebitis. - Neurological Exam Neurological exam: Present: alert, oriented X3 - Psychiatric Psychiatric exam: Present: depressed - Skin Skin exam: Present: warm, dry Results - Labs CBC & BMP: 07/02/16 04:00 07/02/16 04:00 Assessment and Plan (1) COPD (chronic obstructive pulmonary disease) Status: Acute Assessment and plan: The patient has been having a COPD exacerbation with coughing and wheezing and gets very short of breath with activity. She seems to be tolerating her medicines okay. She looks better today and is clearly improving with her breathing. Current Visit: No (2) Adenocarcinoma of right lung Status: Acute Assessment and plan: The patient has right upper lobe cancer but is responding fairly well. It is hard to see a definite mass on her chest x-ray. So far she is reasonably stable at present. Current Visit: Yes (3) Pneumonia Status: Acute Assessment and plan: Patient may have mild right lower lobe pneumonia. She is getting antibiotic therapy. She seems to be tolerating treatment okay so far. Current Visit: Yes Specialty Discharge - Follow Up or Referrals - Discharge Medications No Action Rotigotine [Neupro 2 mg/24 hr Patch] 1 patch TRANSDERM DAILY PRN PRN Reason: Restlessness Ondansetron HCl 4 mg PO Q6H PRN PRN Reason: Nausea Lipase/Protease/Amylase [Creon 24,000 Units] 2 capsule PO TID W/MEALS Albuterol Neb [Proventil Neb] 2.5 mg RESP TX BID PRN PRN Reason: Shortness Of Breath/Wheezing Lisinopril 40 mg PO DAILY Naproxen [Naprosyn Tab] 500 mg PO Q12H PRN PRN Reason: Restlessness Omeprazole [Prilosec] 40 mg PO DAILY FLUoxetine [PROzac] 40 mg PO DAILY Gabapentin Cap/Tab [Neurontin Cap/Tab] 300 mg PO TID Albuterol Sulfate [Ventolin HFA] 2 puff INH Q6H PRN PRN Reason: Shortness Of Breath/Wheezing Albuterol Sulfate [Ventolin HFA] 2 puff INH Q4H PRN PRN Reason: Shortness Of Breath/Wheezing
[2016-07-03] MEDS: PRAMIPEXOLE 0.25 MG TABLET PO SCH (21:14)
[2016-07-04] MEDS: ALBUTEROL/IPRATROPIUM 3 ML NEB RESP TX SCH ×5 (00:04→14:32)
[2016-07-04] MEDS: methylPREDNISolone SOD SUC INJ 125 MG in SODIUM CHLORIDE 0.9% 100 ML IV SCH ×2 (02:01→15:18)
[2016-07-04] MEDS: SODIUM CHLORIDE 0.9% 1,000 ML IV SCH ×2 (06:44)
--- NOTE | 2016-07-04 07:51 | Oncology Progress Note ---
Oncology Subjective PN Interval history: This lady was admitted with acute exacerbation of COPD. She may have had marginal pneumonitis but there was no overt infiltrate and there was no actual evidence of her adenocarcinoma of the lung. She has been treated with Keytruda and apparently has responded well. It appears that the lung cancer has cleared for the most part. I actually reversed the side effects of the Keytruda earlier in this day because it can cause an immune pneumonitis. On reviewing her chest x-ray from yesterday, she does have blunting of the right costophrenic angle. It may be appropriate to check a CT of her chest, abdomen and pelvis now, with contrast, to reevaluate her lung cancer. See my orders. Exam - Constitutional Vitals: Period Temp Pulse Resp BP Sys/Chang Pulse Ox Last 24 Hr 96.0 F-96.9 F 57-72 15-21 116-184/57-79 93-100 Results - Labs CBC & BMP: 07/02/16 04:00 07/02/16 04:00 Specialty Discharge - Follow Up or Referrals - Discharge Medications No Action Rotigotine [Neupro 2 mg/24 hr Patch] 1 patch TRANSDERM DAILY PRN PRN Reason: Restlessness Ondansetron HCl 4 mg PO Q6H PRN PRN Reason: Nausea Lipase/Protease/Amylase [Creon 24,000 Units] 2 capsule PO TID W/MEALS Albuterol Neb [Proventil Neb] 2.5 mg RESP TX BID PRN PRN Reason: Shortness Of Breath/Wheezing Lisinopril 40 mg PO DAILY Naproxen [Naprosyn Tab] 500 mg PO Q12H PRN PRN Reason: Restlessness Omeprazole [Prilosec] 40 mg PO DAILY FLUoxetine [PROzac] 40 mg PO DAILY Gabapentin Cap/Tab [Neurontin Cap/Tab] 300 mg PO TID Albuterol Sulfate [Ventolin HFA] 2 puff INH Q6H PRN PRN Reason: Shortness Of Breath/Wheezing Albuterol Sulfate [Ventolin HFA] 2 puff INH Q4H PRN PRN Reason: Shortness Of Breath/Wheezing
[2016-07-04] MEDS ORDERED: FUROSEMIDE 40 MG/4 ML VIAL IV ONE (09:49)
--- NOTE | 2016-07-04 10:05 | Pulmonology Progress Note ---
Pulmonary - PN: Subj Interval history: Patient is 60-year-old white lady that has a history of lung cancer. She also has significant COPD. She comes in with an exacerbation and probable pneumonia. She has been getting antibiotics and steroids and respiratory therapy. She looks much better today and is sitting up in a chair. She is still using oxygen but seems to be breathing much better. She feels like she has a little extra fluid today. She has been getting IV fluids and will stop these. She still has some right lower lobe infiltrate. Exam (Progress Note) - Constitutional Vitals: Period Temp Pulse Resp BP Sys/Chang Pulse Ox Last 24 Hr 96.0 F-96.9 F 57-81 15-24 116-171/57-93 86-100 Exam: General appearance: normal weight, no distress, she looks much more alert and comfortable sitting up in a chair. She is talking better. - Head Head exam: Present: normal inspection - Eye Eye exam: Present: EOMI. Absent: scleral icterus Pupils: Present: BHARATH - ENT ENT exam: Present: She is very hoarse. Her speech has improved. - Neck Neck exam: Present: normal inspection. Absent: lymphadenopathy, thyromegaly - Respiratory Respiratory exam: Present: She has very prolonged expiration with coarse breath sounds but she is not really wheezing that much and has some crackles in the bases. - Cardiovascular Cardiovascular exam: Present: regular rate and rhythm. Absent: gallop, systolic murmur - GI/Abdominal GI/Abdominal exam: Present: normal bowel sounds, soft. Absent: organomegaly, tenderness, rebound - Extremities Exam Extremities exam: Absent: She has trace edema in her legs but they're nontender. - Neurological Exam Neurological exam: Present: alert, oriented X3 - Psychiatric Psychiatric exam: Present: depressed - Skin Skin exam: Present: warm, dry Results - Labs CBC & BMP: 07/02/16 04:00 07/02/16 04:00 - Diagnostic Findings Procedure: Chest x-ray: image reviewed by me, report reviewed by me (chest x- ray still has some mild infiltrate in the right base.) Assessment and Plan (1) COPD (chronic obstructive pulmonary disease) Status: Acute Assessment and plan: The patient has been having a COPD exacerbation with coughing and wheezing and gets very short of breath with activity. She is better with steroids and bronchodilator therapy. Her breathing has improved. We'll stop her IV fluids and diurese a little. Current Visit: No (2) Adenocarcinoma of right lung Status: Acute Assessment and plan: The patient has right upper lobe cancer but is responding fairly well. It is hard to see a definite mass on her chest x-ray. So far she is reasonably stable at present. Current Visit: Yes (3) Pneumonia Status: Acute Assessment and plan: Patient may have mild right lower lobe pneumonia. She is getting antibiotic therapy. We'll diurese a little and see if her x-ray clears any. Current Visit: Yes Specialty Discharge - Follow Up or Referrals - Discharge Medications No Action Rotigotine [Neupro 2 mg/24 hr Patch] 1 patch TRANSDERM DAILY PRN PRN Reason: Restlessness Ondansetron HCl 4 mg PO Q6H PRN PRN Reason: Nausea Lipase/Protease/Amylase [Creon 24,000 Units] 2 capsule PO TID W/MEALS Albuterol Neb [Proventil Neb] 2.5 mg RESP TX BID PRN PRN Reason: Shortness Of Breath/Wheezing Lisinopril 40 mg PO DAILY Naproxen [Naprosyn Tab] 500 mg PO Q12H PRN PRN Reason: Restlessness Omeprazole [Prilosec] 40 mg PO DAILY FLUoxetine [PROzac] 40 mg PO DAILY Gabapentin Cap/Tab [Neurontin Cap/Tab] 300 mg PO TID Albuterol Sulfate [Ventolin HFA] 2 puff INH Q6H PRN PRN Reason: Shortness Of Breath/Wheezing Albuterol Sulfate [Ventolin HFA] 2 puff INH Q4H PRN PRN Reason: Shortness Of Breath/Wheezing
[2016-07-04] MEDS: GABAPENTIN 300 MG CAPSULE PO SCH ×3 (10:09→20:38)
[2016-07-04] MEDS: CARVEDILOL 25 MG TABLET PO SCH ×2 (10:09→17:21)
[2016-07-04] MEDS: ALPRAZolam 0.25 MG TABLET PO PRN ×3 (10:09→20:38)
[2016-07-04] MEDS: cefTRIAXone 1,000 MG in SODIUM CHLORIDE 0.9% 100 ML IV SCH (10:10)
[2016-07-04] MEDS: guaiFENesin 200 MG/10 ML UDCUP PO PRN (10:17)
[2016-07-04] MEDS: AZITHROMYCIN INJ 500 MG in SODIUM CHLORIDE 0.9% 250 ML IV SCH (11:32)
[2016-07-04] MEDS: PRAMIPEXOLE 0.25 MG TABLET PO SCH (20:38)
[2016-07-05] MEDS: ALBUTEROL/IPRATROPIUM 3 ML NEB RESP TX SCH ×7 (00:09→23:05)
[2016-07-05] MEDS: methylPREDNISolone SOD SUC INJ 125 MG in SODIUM CHLORIDE 0.9% 100 ML IV SCH (03:12)
[2016-07-05] MEDS: ALPRAZolam 0.25 MG TABLET PO PRN ×4 (03:38→20:59)
--- NOTE | 2016-07-05 08:38 | CT Report ---
CT chest abdomen pelvis w con Indication: Lung cancer Comparison: 22 December 2015 Technique: Axial CT imaging of the chest, abdomen and pelvis is performed with intravenous and oral contrast. Contrast dose is 100 cc of Omnipaque 350.. Findings: CT chest: Heart, mediastinum are within normal limits. The great vessels show no evidence of abnormality Small right pleural effusion is present. There are small amount of airspace density with bronchograms in the periphery of the right lower lobe. The right upper lobe mass has decreased in size, largest measurement is currently 9 mm No evidence of lung parenchymal abnormality is seen. No pneumothorax is present. No chest wall abnormalities are identified. CT abdomen: The liver, spleen, pancreas, adrenal glands and kidneys are normal in size and enhancement. Gallbladder is been limited. No evidence of focal lesion is demonstrated in the solid organs. The bowel caliber is normal and no wall thickening or adjacent inflammatory change is seen. No evidence of free fluid or free air is present. Ventral midline abdominal hernias are present containing fat only with small amount of stranding. CT pelvis: The bowel and bladder appear within normal limits. The uterus and ovaries are not seen. Right hip arthroplasty is present, appears within normal limits. Impression: Airspace density right lower lobe periphery with air bronchograms and small pleural effusion may indicate pneumonia. Right upper lung mass is decreased in size since previous exam. No other significant change demonstrated. PROCEDURE INTERPRETED AT [facility] DEPARTMENT OF RADIOLOGY Final Report Signed by: Dr. Trey Estevez
--- NOTE | 2016-07-05 09:44 | Oncology Progress Note ---
Oncology Subjective PN Interval history: Ms. Cid has severe COPD. She also has PDL 1 positive adenocarcinoma of the lung. She has had a CT of the chest, abdomen and pelvis now and has one identifiable 9 mm area of abnormality in the right lung. If this is residual tumor, she has had an excellent response to treatment. She still has severe dyspnea. She still has severe COPD. We are working on getting her to a swing bed and I anticipate doing that tomorrow if she remains stable. She is oriented and alert. She has very coarse breath sounds throughout both lung plascencia with a prolonged expiratory phase of respiration. Her heart sounds are normal. Exam - Constitutional Vitals: Period Temp Pulse Resp BP Sys/Chang Pulse Ox Last 24 Hr 96 F-96.5 F 62-91 14-22 110-157/55-79 92-100 Results - Labs CBC & BMP: 07/02/16 04:00 07/02/16 04:00
--- NOTE | 2016-07-05 09:50 | Pulmonology Progress Note ---
Pulmonary - PN: Subj Interval history: Patient is 60-year-old white lady that has a history of lung cancer. She also has significant COPD. She comes in with an exacerbation and probable pneumonia. She has been getting antibiotics and steroids and respiratory therapy. She looks much better today and is sitting up in a chair. She is still using oxygen but seems to be breathing much better. She says she diuresed well yesterday and overall her breathing is better. Her CT of the chest shows just minimal infiltrate in the right base the right upper lobe tumor is almost resolved. She does have a good bit of emphysematous changes. Overall he looks better. She feels fairly well and wants to go to a swing bed. Exam (Progress Note) - Constitutional Vitals: Period Temp Pulse Resp BP Sys/Chang Pulse Ox Last 24 Hr 96 F-96.5 F 62-91 14-22 110-157/55-79 92-100 Exam: General appearance: normal weight, no distress, she looks much more alert and comfortable sitting up in a chair. She is talking better. Overall she feels better. - Head Head exam: Present: normal inspection - Eye Eye exam: Present: EOMI. Absent: scleral icterus Pupils: Present: BHARATH - ENT ENT exam: Present: She is very hoarse. Her speech has improved. - Neck Neck exam: Present: normal inspection. Absent: lymphadenopathy, thyromegaly - Respiratory Respiratory exam: Present: She has very prolonged expiration with coarse breath sounds but she is not really wheezing that much and has some crackles in the bases. Her lungs do sound much clearer. - Cardiovascular Cardiovascular exam: Present: regular rate and rhythm. Absent: gallop, systolic murmur - GI/Abdominal GI/Abdominal exam: Present: normal bowel sounds, soft. Absent: organomegaly, tenderness, rebound - Extremities Exam Extremities exam: Absent: She has trace edema in her legs but they're nontender. - Neurological Exam Neurological exam: Present: alert, oriented X3 - Psychiatric Psychiatric exam: Present: depressed - Skin Skin exam: Present: warm, dry Results - Labs CBC & BMP: 07/02/16 04:00 07/02/16 04:00 - Diagnostic Findings Procedure: CT - chest: image reviewed by me, report reviewed by me (the right upper lobe density is much improved. She has minimal infiltrate in the right lower lobe.) Assessment and Plan (1) COPD (chronic obstructive pulmonary disease) Status: Acute Assessment and plan: The patient has been having a COPD exacerbation with coughing and wheezing and gets very short of breath with activity. She is better with steroids and bronchodilator therapy. Her breathing has improved. Overall she is stable. Current Visit: No (2) Adenocarcinoma of right lung Status: Acute Assessment and plan: The patient has right upper lobe cancer but is responding fairly well. Her CT shows the tumor to be much smaller. Overall she is fairly stable. Current Visit: Yes (3) Pneumonia Status: Acute Assessment and plan: Patient may have mild right lower lobe pneumonia. She is getting antibiotic therapy. Her CT looks better and overall she is doing fairly well. She can go to a swing bed. Current Visit: Yes
[2016-07-05] MEDS: GABAPENTIN 300 MG CAPSULE PO SCH ×3 (10:22→20:49)
[2016-07-05] MEDS: methylPREDNISolone SOD SUC 125 MG/2 ML VIAL IV SCH ×2 (10:23→20:49)
[2016-07-05] MEDS: cefTRIAXone 1,000 MG in SODIUM CHLORIDE 0.9% 100 ML IV SCH (10:25)
[2016-07-05] MEDS: CARVEDILOL 25 MG TABLET PO SCH ×2 (10:30→18:07)
[2016-07-05] MEDS: ALUMINUM/MAGNES/SIMETH MAX STR 30 ML UDCUP PO PRN (10:30)
[2016-07-05] MEDS: AZITHROMYCIN INJ 500 MG in SODIUM CHLORIDE 0.9% 250 ML IV SCH (11:29)
[2016-07-05] MEDS: PRAMIPEXOLE 0.25 MG TABLET PO SCH (20:49)
[2016-07-06] MEDS: ALBUTEROL/IPRATROPIUM 3 ML NEB RESP TX SCH ×2 (02:52→07:48)
[2016-07-06] MEDS: ALPRAZolam 0.25 MG TABLET PO PRN ×2 (06:20→10:59)
--- NOTE | 2016-07-06 08:47 | Discharge Summary ---
Hospital Course - Hospital Course Hospital Course: Diagnoses: #1: Acute exacerbation of severe COPD with respiratory failure #2: PDL 1 positive adenocarcinoma of the lung responding well to Keytruda #3: Anemia This dictation is being impeded and delayed by this dictation system. This 60-year-old patient was admitted with acute respiratory distress. She has extremely severe COPD and it was exacerbated by acute bronchitis. Although her chest x-ray was interpreted as showing pneumonia, there was minimal pulmonary infiltrate that I thought might be due to pneumonitis from the Keytruda. We ultimately reversed the effects of the Keytruda using corticosteroids. She received her third course of Keytruda on June 05, 2016. She has had a CT of the chest, abdomen and pelvis that demonstrates substantial shrinkage of her tumor. She has an 9 mm mass in her right upper lobe which represented a very significant response to treatment. It is my intention to challenge her with Keytruda again in the future but I do not think I will proceed with it for the next month. She had severe COPD and it continues to be a major problem. She has chronic dyspnea at rest. She was seen in consultation by Dr. Stuart De Jesus and her condition improved with his treatment. I appreciate his help. At this point she is being discharged to a swing bed I am going to set her up an appointment to see me in 1 month for follow-up. Her COPD is the primary problem presently. The patient has a very trivial anemia and has clearly responded to treatment for the lung cancer with shrinkage of the tumor down to 9 mm. I am hoping for a sustained response. This is a PDL1 positive lung cancer and is responding to targeted therapy very well. - Time spent with patient Time with patient DS: Greater than 30 minutes Discharge Plan - Discharge Data Disposition: Swing Bed, Hos Based, [facility] Condition at Discharge: Guarded Discharge Diet: advance to your usual diet Activity: resume usual activities as tolerated Hygiene: no restrictions Weight Bearing at Discharge: weight bear as tolerated Driving: other Contact your physician if you experience:: fever over 101, Difficulty voiding, Redness or swelling, Nausea/Vomiting, Shortness of breath, Bleeding, pain uncontrolled by pain medications - Discharge Medications Continue Ondansetron HCl 4 mg PO Q6H PRN PRN Reason: Nausea Lipase/Protease/Amylase [Creon 24,000 Units] 2 capsule PO TID W/MEALS Albuterol Neb [Proventil Neb] 2.5 mg RESP TX BID PRN PRN Reason: Shortness Of Breath/Wheezing Naproxen [Naprosyn Tab] 500 mg PO Q12H PRN PRN Reason: Restlessness Gabapentin Cap/Tab [Neurontin Cap/Tab] 300 mg PO TID No Action Rotigotine [Neupro 2 mg/24 hr Patch] 1 patch TRANSDERM DAILY PRN PRN Reason: Restlessness Lisinopril 40 mg PO DAILY Omeprazole [Prilosec] 40 mg PO DAILY FLUoxetine [PROzac] 40 mg PO DAILY Albuterol Sulfate [Ventolin HFA] 2 puff INH Q6H PRN PRN Reason: Shortness Of Breath/Wheezing Albuterol Sulfate [Ventolin HFA] 2 puff INH Q4H PRN PRN Reason: Shortness Of Breath/Wheezing - Follow Up or Referral - Forms/Instructions Additional Discharge Instructions: Discharge this patient to swing bed. Continue her current home medications. Check with Dr. De Jesus about her medications before discharge. Schedule an appointment to see me in 1 month with chest x-ray, CBC, CMP and LDH. Exam - Constitutional Vitals: Period Temp Pulse Resp BP Sys/Chang Pulse Ox Last 24 Hr 96.2 F-97.2 F 61-89 15-20 136-182/63-97 88-99 DS: Provider Date of admission: 06/26/16 07:49 Primary care physician: Bahman Chi DO Attending physician on admission: Lucas Thao MD Consults: 06/26/16 07:57 Consult to Pharmacy [CONS] Routine Reason for Pharmacy Consult: Adjust Meds Renal Funct 06/27/16 08:56 Consult to Case Mgmt/Social Srvs [CONS] Routine Reason for Case Mgmt/Social Srvs: Equipment Consult Comment: home oxygen 06/29/16 10:01 Consult to Physician [CONS] Routine Comment: gerda lung, copd, sob Consulting Provider: Stuart De Jesus Consulting Provider Notified: Yes When should Consulting Provider be notified: Now Consult to Specialist Group: Pulmonology When should Consulting Provider be notified: Now Person Notified: JULIETH Date Notified: 06/29/16 Time Notified: 10:15 07/03/16 14:57 Consult to Case Mgmt/Social Srvs [CONS] Routine Reason for Case Mgmt/Social Srvs: Swingbed/SNF/Snf Consult Comment: Needs rehab before going back home 07/03/16 14:58 Consult to Physical Therapy [CONS] Routine Reason for Physical Therapy: Evaluate and Treat Start Therapy: Tomorrow Consult Comment: Eval and treat for S/B/rehab placement Discharging clinician: Lucas Thao MD
[2016-07-06] MEDS: GABAPENTIN 300 MG CAPSULE PO SCH (08:55)
[2016-07-06] MEDS: CARVEDILOL 25 MG TABLET PO SCH (08:56)
[2016-07-06] MEDS: methylPREDNISolone SOD SUC 125 MG/2 ML VIAL IV SCH (08:56)
[2016-07-06] MEDS: cefTRIAXone 1,000 MG in SODIUM CHLORIDE 0.9% 100 ML IV SCH (08:59)
[2016-07-06] MEDS: AZITHROMYCIN INJ 500 MG in SODIUM CHLORIDE 0.9% 250 ML IV SCH (09:48)
[2016-07-06] MEDS: ALUMINUM/MAGNES/SIMETH MAX STR 30 ML UDCUP PO PRN (10:56)
[2016-07-06 11:12] VITALS: BP 158/86
== END 2016-07-06 11:00 | disposition swing bed (61) | DRG 190 ==
LOC: N.ED 05:33 → N.EDINP 07:49 → N.2E 08:35 → N.4E 06-27 06:13
PROVIDERS: ADMIT Specialist; ATTEND Specialist

== ENCOUNTER 2016-12-01 15:55 | Inpatient (IN) ==
[2016-12-01] MEDS ORDERED: methylPREDNISolone SOD SUC 125 MG/2 ML VIAL IV STA (16:17)
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
[2016-12-01 16:30] LABS: Basophils # 0.1 10*3/uL (0.0-0.2); Basophils % 0.3 % (0.0-0.8); Eosinophils # 0.1 10*3/uL (0.0-0.87); Eosinophils % 0.6 % (0.00-10.9); Hematocrit 36.9 VOL% (35.7-47.0); Hemoglobin 12.1 GM/DL (12.0-16.0); Immature Granulocytes % 1.1 %; Immature Granulocytes Absolute 0.19 #; Lymphocytes # 2.3 10*3/uL (1.4-4.0); Lymphocytes % 13.1 % (21.3-54.2); Mean Corpuscular HGB Conc 32.8 GM/DL (32-36); Mean Corpuscular Hemoglobin 30 PG (27-34); Mean Corpuscular Volume 92.3 FL (87-102); Mean Platelet Volume 8.9 FL (9.6-12.0); Monocytes # 1.3 10*3/uL (0.11-0.8); Monocytes % 7.8 % (1.7-12.7); Neutrophils # 13.2 10*3/uL (1.4-7.4); Neutrophils % 77.1 % (38.7-73.9); Platelet Count 329 T/CUMM (130-400); Red Cell Distribution Width 13.3 % (9.3-17.3); White Blood Count 17.2 T/CUMM (4-12)
[2016-12-01] MEDS ORDERED: ALBUTEROL 2.5 MG/3 ML NEB RESP TX SCH (16:30)
[2016-12-01 16:38] LABS: ABG Base Excess 5.7 MMOL/L (-2.5-2.5); ABG HCO3 29.5 MMOL/L (20-26); ABG Oxygen Saturation 96.4 % (95-100); ABG PH 7.335 (7.35-7.45); ABG TCO2 30.1 MMOL/L (23-27)
[2016-12-01 16:40] LABS: PT Patient Result 10.4 SECS; Partial Thromboplastin Time 25.1 SECS (0-40)
[2016-12-01] MEDS ORDERED: methylPREDNISolone SOD SUC 125 MG/2 ML VIAL ONE (16:40)
--- NOTE | 2016-12-01 16:58 | EKG Report ---
Stationary ECG Study [facility] ER Test Date: 12/01/2016 4:58:42 PM Pat Name: NICHOLAS HARVEY Department: Room: Gender: F Press Supervisor: : 1955 Requested by: Mauro Johns Order Number: [id number] Reading MD: JEM JIMÉNEZ Intervals [place] Rate: 95 P: 102 TN: 131 QRS: 81 QRSD: 88 T: 81 QT: 331 QTc: 383 Interpretive Statements SINUS RHYTHM Electronically Signed On 12-03-16 15:30:25 CDT by JEM JIMÉNEZ [email or web address]
[2016-12-01 16:59] LABS: Alanine Aminotransferase 28 U/L (13-56); Albumin 3.8 G/DL (3.4-5.0); Alkaline Phosphatase 99 U/L (45-117); Aspartate Amino Transferase 19 U/L (0-37); Bilirubin,Total < 0.39 MG/DL (0.2-1.0); Blood Urea Nitrogen 14 MG/DL (7-18); Calcium 9.1 MG/DL (8.5-10.1); Glucose 110 MG/DL (74-106); Magnesium 1.7 MG/DL (1.8-2.4); Osmolality,Calculated 265.5 MOS/KG (273-304); Potassium 4.3 MMOL/L (3.5-5.1); Sodium 132 MMOL/L (136-145); Total Protein 6.7 G/DL (6.4-8.3); Troponin I Only < 0.015 NG/ML (0.00-0.045)
--- NOTE | 2016-12-01 17:02 | CT Report ---
History is dyspnea, short of breath with lung cancer 80 cc Omni 350 utilized. Axial images obtained with 2-D multiplanar reconstruction images also stored and interpreted Findings: No enlarged mediastinal or hilar nodes seen. No persistent filling defects seen in the pulmonary arteries. Volume averaging felt to be present in the small branches in the lower lobes No significant pleural effusion present. Right pleural effusion has cleared in the interval There is hyperlucency more pronounced in the upper lung zones. Mild stranding opacities remain in the right middle lobe and right upper lobe with improvement of prior parenchymal opacities. No new a new areas of more focal nodularity are seen. There is a mild compression fracture in the midthoracic spine which has developed in the interval and has also developed since prior chest x-ray of 10/31/2016 Impression: 1. No evidence of pulmonary embolus seen 2. Emphysematous changes 3. Mild mid thoracic compression fracture has developed since 10/31/2016 but otherwise has a subacute or chronic appearance The CT exam was performed using one or more of the following dose reduction techniques: Automated exposure control, adjustment of the mA and/or kV according to patient size, or use of iterative reconstruction technique. PROCEDURE INTERPRETED AT [facility] DEPARTMENT OF RADIOLOGY Final Report Signed by: Dr. Stefany Peterson
--- NOTE | 2016-12-01 17:22 | XRay Report ---
Chest, 2 views History short of breath Comparison 10/31/2016 The heart is at the upper and normal in size. Hilar contours unchanged MediPort catheter present The lungs are chronically hyperexpanded Scarring the right upper chest again seen No confluent infiltrate is seen There is been development of a mild midthoracic compression fracture Impression: 1. Fibroemphysematous changes 2. Interval development of mild mid thoracic compression fracture PROCEDURE INTERPRETED AT [facility] DEPARTMENT OF RADIOLOGY Final Report Signed by: Dr. Stefany Peterson
[2016-12-01] MEDS ORDERED: LEVOFLOXACIN INJ 500 MG in PREMIX 1 EACH IV STA (17:36)
[2016-12-01] MEDS ORDERED: LEVOFLOXACIN INJ 100 ML IV ONE (17:59)
[2016-12-01] MEDS ORDERED: HYDROmorphone 2 MG/1 ML VIAL IV STA (18:30)
[2016-12-01] MEDS ORDERED: HYDROmorphone 2 MG/1 ML VIAL ONE (18:30)
[2016-12-01] MEDS ORDERED: ONDANSETRON 4 MG/2 ML VIAL IV STA (18:30)
[2016-12-01] MEDS ORDERED: ONDANSETRON 4 MG/2 ML VIAL ONE (18:30)
[2016-12-01] MEDS ORDERED: PROMETHAZINE INJ 25 MG in SODIUM CHLORIDE 0.9% 50 ML IV PRN (19:03)
[2016-12-01] MEDS ORDERED: ALUMINUM/MAGNES/SIMETH MAX STR 30 ML UDCUP PO PRN (19:03)
[2016-12-01] MEDS ORDERED: diphenhydrAMINE CAP 25 MG CAPSULE PO PRN (19:03)
[2016-12-01] MEDS ORDERED: MAGNESIUM HYDROXIDE SUSP 30 ML UDCUP PO PRN (19:03)
[2016-12-01] MEDS ORDERED: MYLANTA/LIDO VISC 2:1 300 ML BOTTLE SWISH/SPIT PRN (19:03)
[2016-12-01] MEDS ORDERED: BENZTROPINE 2 MG/2 ML AMP IV PRN (19:03)
[2016-12-01] MEDS ORDERED: LOPERAMIDE 2 MG CAPSULE PO PRN ×2 (19:03)
[2016-12-01] MEDS ORDERED: ACETAMINOPHEN 325 MG TABLET PO PRN (19:03)
[2016-12-01] MEDS ORDERED: guaiFENesin 200 MG/10 ML UDCUP PO PRN (19:03)
[2016-12-01] MEDS ORDERED: LACTULOSE 20 GM/30 ML UDCUP PO PRN (19:03)
[2016-12-01] MEDS ORDERED: TEMAZEPAM 7.5 MG CAPSULE PO PRN (19:03)
[2016-12-01] MEDS ORDERED: MYLANTA/LIDO VISC 2:1 300 ML BOTTLE SWISH/SWAL PRN (19:03)
[2016-12-01] MEDS ORDERED: traMADol 50 MG TABLET PO PRN (19:03)
[2016-12-01] MEDS: SODIUM CHLORIDE 0.9% 1,000 ML IV SCH (21:09)
[2016-12-01 22:26] LABS: Apearance,Urine CLEAR (Clear); Bilirubin,Urine Negative (Negative); Blood, Urine Negative (Negative); Glucose,Urine (UA) Negative (Negative); Ketones,Urine Negative (Negative); Mucus,Urine Occasional /LPF (Occasional); Nitrite,Urine Negative (Negative); Protein,Urine Negative; RBC,Urine <1 /HPF (0-4); Squamous Epithelial Cell,Urine Occasional /HPF (0-10); Urine Color Yellow (Yellow); Urine Specific Gravity 1.029 (1.001-1.035); Urine Urobilinogen < 2.0 EU/DL (0.2-1.0); WBC,Urine <1 /HPF (0-6)
[2016-12-01] MEDS: ALBUTEROL/IPRATROPIUM 3 ML NEB RESP TX SCH (23:24)
[2016-12-02] MEDS: ALBUTEROL/IPRATROPIUM 3 ML NEB RESP TX SCH ×6 (02:53→23:56)
[2016-12-02 06:23] LABS: Basophils % 0.1 % (0.0-0.8); Hematocrit 33.8 VOL% (35.7-47.0); Hemoglobin 10.7 GM/DL (12.0-16.0); Immature Granulocytes % 1.4 %; Immature Granulocytes Absolute 0.15 #; Lymphocytes # 0.5 10*3/uL (1.4-4.0); Lymphocytes % 4.9 % (21.3-54.2); Mean Corpuscular HGB Conc 31.7 GM/DL (32-36); Mean Corpuscular Hemoglobin 30 PG (27-34); Mean Corpuscular Volume 95.2 FL (87-102); Mean Platelet Volume 9.5 FL (9.6-12.0); Monocytes # 0.3 10*3/uL (0.11-0.8); Monocytes % 2.5 % (1.7-12.7); Neutrophils % 91.1 % (38.7-73.9); Platelet Count 312 T/CUMM (130-400); Red Blood Count 3.55 MC/CUMM (3.8-5.5); Red Cell Distribution Width 13.2 % (9.3-17.3)
[2016-12-02 07:19] LABS: Albumin 3.2 G/DL (3.4-5.0); Bilirubin,Total 0.6 MG/DL (0.2-1.0); Calcium 8.8 MG/DL (8.5-10.1); Osmolality,Calculated 269.2 MOS/KG (273-304); Total Protein 5.8 G/DL (6.4-8.3)
[2016-12-02 07:24] LABS: Band Neutrophils 7 % (0-10); Hypochromasia Slight; Lymphocytes 5 % (20-55); Microcytosis Slight; Polychromasia Slight; Potassium 6.1 MMOL/L (3.5-5.1); Segmented Neutrophils 88 % (50-85); Total Cells Counted 100
[2016-12-02 07:25] LABS: Platelet Estimate Adequate
[2016-12-02] MEDS: PANTOPRAZOLE 40 MG VIAL IV SCH (08:39)
--- NOTE | 2016-12-02 08:44 | XRay Report ---
Chest, 2 views History short of breath Comparison 12/01/2016 Mediastinal and hilar contours are unchanged There are slight increasing interstitial opacities in both lung bases. No more focal consolidation seen. Right upper lobe scarring again seen Mild compression fracture in the midthoracic spine again seen. The lungs are chronically hyperexpanded Impression: Slight increasing bilateral interstitial infiltrates versus edema superimposed on chronic changes PROCEDURE INTERPRETED AT [facility] DEPARTMENT OF RADIOLOGY Final Report Signed by: Dr. Stefany Peterson
[2016-12-02] MEDS: SODIUM CHLORIDE 0.9% 1,000 ML IV SCH (10:02)
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
[2016-12-02] MEDS: MORPHINE 2 MG/1 ML SYRINGE IV PRN ×3 (10:56→21:04)
[2016-12-02] MEDS: methylPREDNISolone SOD SUC 40 MG/1 ML VIAL IV SCH ×2 (10:56→22:08)
[2016-12-02] MEDS: FLUoxetine 20 MG CAPSULE PO SCH (12:36)
[2016-12-02] MEDS: LEVOFLOXACIN INJ 500 MG in PREMIX 1 EACH IV SCH (17:34)
[2016-12-02] MEDS: BUDESONIDE/FORMOTEROL 80-4.5 INHALER 6.9 GM INH SCH (21:07)
[2016-12-02] MEDS: ALPRAZolam 0.25 MG TABLET PO PRN (22:14)
[2016-12-03] MEDS: SODIUM CHLORIDE 0.9% 1,000 ML IV SCH ×2 (00:13→14:29)
[2016-12-03] MEDS: ALBUTEROL/IPRATROPIUM 3 ML NEB RESP TX SCH ×5 (03:43→19:27)
[2016-12-03] MEDS: ALPRAZolam 0.25 MG TABLET PO PRN ×5 (05:02→21:25)
[2016-12-03] MEDS: MORPHINE 2 MG/1 ML SYRINGE IV PRN ×4 (05:06→19:43)
[2016-12-03 05:29] LABS: Basophils % 0.1 % (0.0-0.8); Hematocrit 34.7 VOL% (35.7-47.0); Immature Granulocytes % 1.9 %; Immature Granulocytes Absolute 0.37 #; Lymphocytes # 0.5 10*3/uL (1.4-4.0); Lymphocytes % 2.7 % (21.3-54.2); Mean Corpuscular HGB Conc 31.7 GM/DL (32-36); Mean Corpuscular Hemoglobin 30 PG (27-34); Mean Corpuscular Volume 93.5 FL (87-102); Mean Platelet Volume 9.3 FL (9.6-12.0); Monocytes # 0.8 10*3/uL (0.11-0.8); Monocytes % 4.3 % (1.7-12.7); Platelet Count 341 T/CUMM (130-400); Red Blood Count 3.71 MC/CUMM (3.8-5.5); Red Cell Distribution Width 13.4 % (9.3-17.3); White Blood Count 19.8 T/CUMM (4-12)
[2016-12-03 05:59] LABS: Alanine Aminotransferase 29 U/L (13-56); Albumin 3.3 G/DL (3.4-5.0); Alkaline Phosphatase 94 U/L (45-117); Aspartate Amino Transferase 23 U/L (0-37); Bilirubin,Total < 0.39 MG/DL (0.2-1.0); Calcium 9.1 MG/DL (8.5-10.1); Total Protein 6.4 G/DL (6.4-8.3)
[2016-12-03 06:00] LABS: Blood Urea Nitrogen 15 MG/DL (7-18); Glucose 128 MG/DL (74-106); Osmolality,Calculated 272.1 MOS/KG (273-304); Potassium 5.2 MMOL/L (3.5-5.1); Sodium 135 MMOL/L (136-145)
[2016-12-03 07:41] LABS: Band Neutrophils 8 % (0-10); Hypochromasia Slight; Lymphocytes 5 % (20-55); Microcytosis Slight; Myelocytes 1 %; Platelet Estimate Adequate; Segmented Neutrophils 83 % (50-85); Total Cells Counted 100
[2016-12-03] MEDS: BUDESONIDE/FORMOTEROL 80-4.5 INHALER 6.9 GM INH SCH ×2 (08:43→21:26)
[2016-12-03] MEDS: PANTOPRAZOLE 40 MG VIAL IV SCH (08:43)
[2016-12-03] MEDS: GABAPENTIN 300 MG CAPSULE PO PRN (08:44)
[2016-12-03] MEDS: FLUoxetine 20 MG CAPSULE PO SCH (08:44)
[2016-12-03] MEDS: amLODIPine 10 MG TABLET PO SCH (08:44)
[2016-12-03] MEDS ORDERED: NEUPRO TRANSDERM SCH (09:00)
--- NOTE | 2016-12-03 09:37 | Oncology Progress Note ---
Assessment and Plan (1) COPD exacerbation Status: Acute Assessment and plan: acute exacerbation with hypoxia, shortness of breath, and diffuse wheezing - no signs of pneumonia, PE, nor pneumonitis on CTA chest - continued wheezing - continue with oxygen, solumedrol 80mg IV BID, nebs, and levaquin coverage - will consider consulting her office assistance tomorrow Dr. De Jesus - patient may need use oxygen continuously at home - culture NGTD Current Visit: Yes (2) Compression fracture Status: Acute Assessment and plan: no neurological deficits - managed conservatively with morphine 4mg IV Q4h PRN - per patient request will consider a pain management consult tomorrow Current Visit: Yes (3) Eye discharge Status: Acute Assessment and plan: unclear if related to keytruda versus infection - previously responded to topical antibiotics - cipro gtt Q4h Current Visit: Yes (4) Adenocarcinoma of right lung Status: Acute Assessment and plan: currently on keytruda - will follow up outpatient after resolution of COPD exacerbation Current Visit: No Oncology Subjective PN Interval history: 60 year old female with PMHx of NSCLC most recently on keytruda with a good response admitted for shortness of breath, wheezing, and hypoxia of 86% on RA. Since admit patient managed as COPD exacerbation. Today patient states continued wheezing. She feels better on oxygen with less lightheadedness. She refers increased secretions from both eyes. She refers multiple skin lesions new for her on arms and legs. No fevers. Exam - Constitutional Vitals: Period Temp Pulse Resp BP Sys/Chang Pulse Ox Last 24 Hr 96.3 F-97.9 F 73-98 17-20 117-144/63-80 89-99 General appearance: no acute distress - Eye Eye Exam: Present: EOMI Pupils: Present: PERRL - Respiratory Respiratory exam: Present: wheezes (bilateral diffuse wheezing) - Cardiovascular Cardiovascular exam: Present: RRR - GI/Abdominal GI/Abdominal exam: Present: soft. Absent: ascites, distended, guarding, mass - Extremities Exam Extremities exam: Absent: edema - Neurological Exam Neurological exam: Present: alert, oriented X3 - Psychiatric Psychiatric exam: Present: normal affect - Skin Skin exam: Present: other (multiple excoriated lesions on arms and legs that do not appear infected) Results - Labs CBC & BMP: 12/03/16 05:10 12/03/16 05:10
[2016-12-03] MEDS: methylPREDNISolone SOD SUC 40 MG/1 ML VIAL IV SCH ×2 (11:20→23:18)
[2016-12-03] MEDS: CIPROFLOXACIN 0.3% OPH SOLN 2.5 ML BOTTLE BOTH EYES SCH ×4 (14:29→21:25)
[2016-12-03] MEDS: LEVOFLOXACIN INJ 500 MG in PREMIX 1 EACH IV SCH (17:06)
[2016-12-04] MEDS: ALBUTEROL/IPRATROPIUM 3 ML NEB RESP TX SCH ×7 (00:04→23:58)
[2016-12-04] MEDS ORDERED: methylPREDNISolone SOD SUC 40 MG/1 ML VIAL IV ONE (00:55)
[2016-12-04] MEDS: CIPROFLOXACIN 0.3% OPH SOLN 2.5 ML BOTTLE BOTH EYES SCH ×7 (01:28→22:40)
[2016-12-04] MEDS: SODIUM CHLORIDE 0.9% 1,000 ML IV SCH (03:33)
[2016-12-04 04:50] LABS: Basophils % 0.2 % (0.0-0.8); Hematocrit 35.3 VOL% (35.7-47.0); Hemoglobin 10.9 GM/DL (12.0-16.0); Immature Granulocytes % 2.8 %; Immature Granulocytes Absolute 0.54 #; Lymphocytes # 0.6 10*3/uL (1.4-4.0); Lymphocytes % 2.8 % (21.3-54.2); Mean Corpuscular HGB Conc 30.9 GM/DL (32-36); Mean Corpuscular Hemoglobin 30 PG (27-34); Mean Corpuscular Volume 96.2 FL (87-102); Mean Platelet Volume 9.3 FL (9.6-12.0); Monocytes # 0.5 10*3/uL (0.11-0.8); Monocytes % 2.5 % (1.7-12.7); Neutrophils # 17.7 10*3/uL (1.4-7.4); Neutrophils % 91.7 % (38.7-73.9); Platelet Count 342 T/CUMM (130-400); Red Blood Count 3.67 MC/CUMM (3.8-5.5); Red Cell Distribution Width 13.6 % (9.3-17.3); White Blood Count 19.3 T/CUMM (4-12)
[2016-12-04 05:29] LABS: Alanine Aminotransferase 28 U/L (13-56); Albumin 3.3 G/DL (3.4-5.0); Alkaline Phosphatase 80 U/L (45-117); Aspartate Amino Transferase 22 U/L (0-37); Bilirubin,Total < 0.39 MG/DL (0.2-1.0); Blood Urea Nitrogen 16 MG/DL (7-18); Calcium 8.8 MG/DL (8.5-10.1); Glucose 128 MG/DL (74-106); Osmolality,Calculated 272.1 MOS/KG (273-304); Potassium 5.3 MMOL/L (3.5-5.1); Sodium 135 MMOL/L (136-145)
[2016-12-04 06:09] LABS: Hypochromasia Slight; Lymphocytes 2 % (20-55); Segmented Neutrophils 94 % (50-85); Total Cells Counted 100
[2016-12-04 06:10] LABS: Microcytosis Slight
--- NOTE | 2016-12-04 07:26 | Oncology Progress Note ---
Oncology Subjective PN Interval history: (1) COPD exacerbation Status: Acute Assessment and plan: acute exacerbation with hypoxia, shortness of breath, and diffuse wheezing - no signs of pneumonia, PE, nor pneumonitis on CTA chest - continue with oxygen, solumedrol 80mg IV BID, nebs, and levaquin coverage - culture pending. She sees Dr. De Jesus and I am consulting him on her. Current Visit: Yes (2) Compression fracture Status: Acute Assessment and plan: no neurologic deficits - will manage conservatively with morphine 4mg IV Q4h PRN I will consult Dr. King for pain management. It does not appear that this compression fractures related to metastatic disease but I want his opinion about that as well. Current Visit: Yes (3) Adenocarcinoma of right lung Status: Acute Her chest CT does not demonstrate any evidence of recurrence of her lung cancer. Assessment and plan: She has not received any Keytruda since October 09, 2016 because I thought she was having some exacerbation of her COPD from acute pulmonary toxicity by the Keytruda.On review of her admission x-ray film on December 04, 2016, I see no obvious lung mass. She has significant COPD. There is a central venous access device in place over the last chest. Lab work today includes white cell count of 19,300 with a hemoglobin of 10.6 and a platelet count of 342,000. The comprehensive metabolic profile today includes a slightly high serum potassium of 5.3. The serum albumin is 3.3. will consider continuing or resuming Keytruda depending on how her pulmonary problems are doing. On physical examination she has extremely coarse breath sounds throughout both lungs with expiratory wheezing. AP diameter of the chest is increased. Heart sounds are normal. She is fully oriented and alert although she demonstrates some flight of ideas. She has cushingoid features. I suspect that she has component of osteoporosis. Exam - Constitutional Vitals: Period Temp Pulse Resp BP Sys/Chang Pulse Ox Last 24 Hr 97.1 F-98 F 88-110 16-20 104-167/59-89 86-96 Results - Labs CBC & BMP: 12/04/16 04:00 12/04/16 04:00
--- NOTE | 2016-12-04 07:47 | XRay Report ---
Referring Physician: Emanuel Harkins Exam: XR chest 1V portable Date: December 04, 2016 at 12:49 AM Reason: Decreased oxygen saturation Comparison: Chest 2 views December 02, 2016 Findings: A left-sided Mediport is again in place. The cardiac silhouette is normal in size. There are opacities within both lower lung zones. These opacities are most consistent with atelectasis. Pneumonia is felt less likely but is not excluded. There is also emphysema. No pneumothorax is identified, but there may be minimal bilateral pleural fluid. The osseous structures appear stable. Impression: There are opacities within both lower lung zones, which have increased. This likely represents atelectasis. PROCEDURE INTERPRETED AT [facility] DEPARTMENT OF RADIOLOGY Final Report Signed by: Dr. Billy Tariq
[2016-12-04] MEDS ORDERED: HEPARIN LOCK FLUSH 500 UNIT/5 ML SYRINGE IV ONE (08:07)
[2016-12-04] MEDS: amLODIPine 10 MG TABLET PO SCH (09:31)
[2016-12-04] MEDS: FLUoxetine 20 MG CAPSULE PO SCH (09:31)
[2016-12-04] MEDS: BUDESONIDE/FORMOTEROL 80-4.5 INHALER 6.9 GM INH SCH ×2 (09:32→22:35)
[2016-12-04] MEDS: MORPHINE 2 MG/1 ML SYRINGE IV PRN ×3 (09:33→19:29)
[2016-12-04] MEDS: PANTOPRAZOLE 40 MG VIAL IV SCH (09:37)
[2016-12-04] MEDS: ALPRAZolam 0.25 MG TABLET PO PRN ×3 (11:08→22:31)
[2016-12-04] MEDS: methylPREDNISolone SOD SUC 40 MG/1 ML VIAL IV SCH ×2 (11:09→22:36)
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
--- NOTE | 2016-12-04 15:01 | Magnetic Resonance Report ---
Exam: MR thoracic spine wo con Date: 12/04/2016 11:15 AM Comparison: CT chest 12/01/2016 Indication: History of lung cancer with thoracic spine compression fracture Technique:[Multiple acquisitions were obtained including sagittal T1, T2, STIR, and axial T1 and T2 scans. Scans were obtained on an open 1.2 Toya magnet.] Findings: Mild kyphotic deformity thoracic spine. Evidence of a compression fracture of T7 with marrow edema. Significant central and anterior compression of the vertebra. 4.73 mm retropulsion of the fracture into the bony canal. This finding contacts the spinal cord with associated minimal spinal stenosis. There is associated adjacent minimal diffuse soft tissue density. 16 mm probable vertebral hemangioma or focal fatty marrow at T12. Disc degeneration with osteophyte/disc complex which appears most pronounced at T6-T7. Impression: Acute significant compression fracture at T7 which was not identified on prior chest x-ray 10/31/2016. Pathologic fracture cannot be excluded in this patient with known carcinoma of the lung. Associated small paravertebral hematoma. Bone scan may be helpful to determine if there are other areas of involvement. PROCEDURE INTERPRETED AT [facility] DEPARTMENT OF RADIOLOGY Final Report Signed by: Dr. Vijaya Bar
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
[2016-12-04] MEDS: LEVOFLOXACIN INJ 500 MG in PREMIX 1 EACH IV SCH (19:29)
[2016-12-05] MEDS: MORPHINE 2 MG/1 ML SYRINGE IV PRN ×3 (00:22→08:59)
[2016-12-05] MEDS: CIPROFLOXACIN 0.3% OPH SOLN 2.5 ML BOTTLE BOTH EYES SCH ×6 (02:34→21:51)
[2016-12-05] MEDS: ALBUTEROL/IPRATROPIUM 3 ML NEB RESP TX SCH ×6 (03:36→23:00)
--- NOTE | 2016-12-05 07:15 | Oncology Progress Note ---
Oncology Subjective PN Interval history: Ms. Cid is a patient with adenocarcinoma of the lung who was admitted with an exacerbation of COPD and also with increasing back pain due to a newly diagnosed compression fracture. She has most recently been treated with Keytruda. She had disease that was probably stage III or possibly II when she was initially diagnosed but she was not a candidate for surgery or radiation because of extremely severe COPD. I appreciate the input from the consultants. It is okay for Ms. Cid to have a kyphoplasty but I would like for a biopsy to be performed at the time of the kyphoplasty just to ensure that this is not metastatic disease to the spine. If this requires 2 procedures that is fine with me. I am also considering Zometa while she is here but I will await any plans by pain management. We are not allowed to give Xgeva in-patient. Her pain seems to be improving somewhat but she is at bedrest. She is tachypnea can breathless. She is hoarse. She is fully oriented to time , place, person and situation. She has cushingoid features. She has had no treatment for this lung cancer since September of this year. I held the Keytruda because of progressive dyspnea and pulmonary congestion and the possibility that the Keytruda could be contributing to this by causing pulmonary toxicity. Exam - Constitutional Vitals: Period Temp Pulse Resp BP Sys/Chang Pulse Ox Last 24 Hr 97.5 F-98.2 F 64-112 17-20 120-156/57-83 82-98 Results - Labs CBC & BMP: 12/04/16 04:00 12/04/16 04:00
[2016-12-05] MEDS ORDERED: HEPARIN LOCK FLUSH 500 UNIT/5 ML SYRINGE IV ONE ×2 (08:54→18:57)
[2016-12-05] MEDS: BUDESONIDE/FORMOTEROL 80-4.5 INHALER 6.9 GM INH SCH ×2 (10:06→21:57)
[2016-12-05] MEDS: PANTOPRAZOLE 40 MG VIAL IV SCH (10:07)
[2016-12-05] MEDS: methylPREDNISolone SOD SUC 40 MG/1 ML VIAL IV SCH ×2 (10:10→21:53)
[2016-12-05] MEDS ORDERED: LIDOCAINE 2% 20 ML VIAL ONE (10:26)
[2016-12-05] MEDS ORDERED: TISSUE ADHESIVE 1 EACH APPLICATOR TOP ONE (10:36)
--- NOTE | 2016-12-05 10:45 | Pulmonology Progress Note ---
Pulmonary - PN: Subj Interval history: Patient is a 60-year-old that has lung cancer that has responded to treatment. She does have fairly significant COPD and is in with an exacerbation. She also has a compression fracture over T7 spine and is going for kyphoplasty today. She feels like her breathing is a little better today and she is comfortable. She is tolerating her medicines okay. She is not having any worsening chest pain or shortness of breath. Exam (Progress Note) - Constitutional Vitals: Period Temp Pulse Resp BP Sys/Chang Pulse Ox Last 24 Hr 97.5 F-98.2 F 64-112 17-22 120-156/57-78 82-99 Exam: General appearance: no acute distress (She is not having any significant distress. She is breathing comfortably at present.), over weight - Head Head exam: Present: normal inspection, normocephalic - Eye Eye exam: Present: EOMI. Absent: scleral icterus Pupils: Present: BHARATH - ENT ENT exam: Present: normal exam - Neck Neck exam: Present: normal inspection. Absent: lymphadenopathy, thyromegaly - Respiratory Respiratory exam: Present: Her lungs have fair breath sounds bilaterally but she does have some mild wheezing still. - Cardiovascular Cardiovascular exam: Present: regular rate and rhythm. Absent: gallop, systolic murmur - GI/Abdominal GI/Abdominal exam: Present: normal bowel sounds, soft. Absent: distended, organomegaly, tenderness - Extremities Exam Extremities exam: Absent: calf tenderness, edema - Back Exam Back exam: Present: vertebral tenderness - Neurological Exam Neurological exam: Present: alert, oriented X3, CN II-XII intact. Absent: motor sensory deficit - Psychiatric Psychiatric exam: Present: normal affect - Skin Skin exam: Present: warm, dry Results - Labs CBC & BMP: 12/04/16 04:00 12/04/16 04:00 Assessment and Plan (1) Adenocarcinoma of right lung Status: Acute Assessment and plan: The patient has adenocarcinoma of the lung and has a fairly good response to therapy. I do not see any signs of a tumor on her x-ray. Current Visit: No (2) COPD exacerbation Status: Acute Assessment and plan: Patient comes in with a COPD exacerbation and is reasonably stable at present. She looks like she is breathing better and she is tolerating her medicines fairly well. Current Visit: Yes (3) Compression fracture Status: Acute Assessment and plan: The patient has a compression fracture and is being seen by pain management. She is going for kyphoplasty today. Current Visit: Yes
[2016-12-05] MEDS: LACTATED RINGERS 1,000 ML IV SCH (10:52)
--- NOTE | 2016-12-05 12:57 | Anesthesia Post-Op ---
Anesthesia Post OP - Post Ansesthetic Evaluation Patient seen in post op: Yes Resp: within normal limits CV: within normal limits Mental: within normal limits Temp: within normal limits [id number]: within normal limits Nausea and Vomiting: within normal limits Pain: within normal limits
[2016-12-05] MEDS ORDERED: MIDAZOLAM 2 MG/2 ML VIAL ONE (12:59)
[2016-12-05] MEDS ORDERED: fentaNYL 100 MCG/2 ML VIAL ONE (13:00)
[2016-12-05] MEDS: THEOPHYLLINE ER (24 HR) 400 MG CAPSULE PO SCH (14:24)
[2016-12-05] MEDS: amLODIPine 10 MG TABLET PO SCH (14:24)
[2016-12-05] MEDS: ALPRAZolam 0.25 MG TABLET PO PRN ×3 (14:25→23:08)
[2016-12-05] MEDS: FLUoxetine 20 MG CAPSULE PO SCH (14:25)
[2016-12-05] MEDS: LEVOFLOXACIN INJ 500 MG in PREMIX 1 EACH IV SCH (18:26)
[2016-12-06] MEDS: CIPROFLOXACIN 0.3% OPH SOLN 2.5 ML BOTTLE BOTH EYES SCH ×5 (02:15→19:12)
[2016-12-06] MEDS: ALBUTEROL/IPRATROPIUM 3 ML NEB RESP TX SCH ×5 (02:50→20:14)
[2016-12-06] MEDS: ALPRAZolam 0.25 MG TABLET PO PRN (04:57)
--- NOTE | 2016-12-06 07:09 | Oncology Progress Note ---
Oncology Subjective PN Interval history: Diagnoses: Compression fracture of the 10th thoracic vertebral post kyphoplasty Severe COPD Metastatic adenocarcinoma of the lung currently in remission Anemia, multifactorial including chronic disease and possibly sequelae of treatment. This lady was admitted with severe back pain and severe dyspnea due to severe COPD. She has underlying non-small cell lung cancer but is off treatment. She was evaluated and found to have a compression fracture. Total Pain was consulted and the patient has undergone kyphoplasty. Dr. Stuart De Jesus was consulted and evaluated the patient's COPD. We have found no evidence of recurrence of her adenocarcinoma of the lung. She is a patient with adenocarcinoma of the lung who was admitted with an exacerbation of COPD and also with increasing back pain due to a newly diagnosed compression fracture. She has most recently been treated with Keytruda. She had disease that was probably stage III or possibly II when she was initially diagnosed but she was not a candidate for surgery or radiation because of extremely severe COPD. She was mildly anemic on admission with a hemoglobin of 10.1. Her pain is significantly improved with kyphoplasty. I am going to defer pain management to Dr. May at this point because her pain is due to a compression fracture and not due to any evidence of metastatic disease from her cancer. However, Dr. May did perform a biopsy of the 10th thoracic vertebra and results are pending. The patient is off all treatment for her lung cancer at this point but I anticipate resuming Keytruda at some point. She has what appears to be stage III B disease but she is not a candidate for radiation or surgical resection even if this were an earlier stage. Her COPD is too severe. I will follow-up on her in my office. Exam - Constitutional Vitals: Period Temp Pulse Resp BP Sys/Chang Pulse Ox Last 24 Hr 97.5 F-98.8 F 83-115 16-22 102-163/54-110 86-99 Results - Labs CBC & BMP: 12/04/16 04:00 12/05/16 11:15
--- NOTE | 2016-12-06 08:17 | Pulmonology Progress Note ---
Pulmonary - PN: Subj Interval history: Patient is a 60-year-old that has lung cancer that has responded to treatment. She does have fairly significant COPD and is in with an exacerbation. She also has a compression fracture over T7 spine and yesterday she had kyphoplasty. She says her back is feeling better and she is getting around better. She feels like her breathing is doing okay too. She has not been using anything regular for her breathing but does have some Symbicort. She can use this twice a day for now. Overall she seems to be stable and wants to go home. Exam (Progress Note) - Constitutional Vitals: Period Temp Pulse Resp BP Sys/Chang Pulse Ox Last 24 Hr 97.5 F-98.8 F 83-115 16-22 102-163/54-110 90-96 Exam: General appearance: no acute distress (She is not having any significant distress. She is breathing comfortably at present.), over weight - Head Head exam: Present: normal inspection, normocephalic - Eye Eye exam: Present: EOMI. Absent: scleral icterus Pupils: Present: BHARATH - ENT ENT exam: Present: normal exam - Neck Neck exam: Present: normal inspection. Absent: lymphadenopathy, thyromegaly - Respiratory Respiratory exam: Present: Her lungs have fair breath sounds bilaterally and she is moving air fairly well and her lungs sound clearer. - Cardiovascular Cardiovascular exam: Present: regular rate and rhythm. Absent: gallop, systolic murmur - GI/Abdominal GI/Abdominal exam: Present: normal bowel sounds, soft. Absent: distended, organomegaly, tenderness - Extremities Exam Extremities exam: Absent: calf tenderness, edema - Back Exam Back exam: Present: vertebral tenderness, her back tenderness is better. - Neurological Exam Neurological exam: Present: alert, oriented X3, CN II-XII intact. Absent: motor sensory deficit - Psychiatric Psychiatric exam: Present: normal affect - Skin Skin exam: Present: warm, dry Results - Labs CBC & BMP: 12/04/16 04:00 12/05/16 11:15 Assessment and Plan (1) Adenocarcinoma of right lung Status: Acute Assessment and plan: The patient has adenocarcinoma of the lung and has a fairly good response to therapy. I do not see any signs of a tumor on her x-ray. Current Visit: No (2) COPD exacerbation Status: Acute Assessment and plan: Patient comes in with a COPD exacerbation and is reasonably stable at present. She is doing better and feels better. Her cough and wheezing have improved. She can go home today and she will use Symbicort twice a day. Current Visit: Yes (3) Compression fracture Status: Acute Assessment and plan: The patient has a compression fracture and is being seen by pain management. Her back feels better after kyphoplasty. Current Visit: Yes
--- NOTE | 2016-12-06 08:30 | Event Note ---
Post T7 kypho excellent results and pain markedly improved. Biopsy pending.
--- NOTE | 2016-12-06 08:31 | Discharge Summary ---
Hospital Course - Hospital Course Hospital Course: Diagnoses: Compression fracture of the 10th thoracic vertebral post kyphoplasty Severe COPD Metastatic adenocarcinoma of the lung currently in remission Anemia, multifactorial including chronic disease and possibly sequelae of treatment. This lady was admitted with severe back pain and severe dyspnea due to severe COPD. She has underlying non-small cell lung cancer but is off treatment. She was evaluated and found to have a compression fracture. Total Pain was consulted and the patient has undergone kyphoplasty. Dr. Stuart De Jesus was consulted and evaluated the patient's COPD. We have found no evidence of recurrence of her adenocarcinoma of the lung. She is a patient with adenocarcinoma of the lung who was admitted with an exacerbation of COPD and also with increasing back pain due to a newly diagnosed compression fracture. She has most recently been treated with Keytruda. She had disease that was probably stage III or possibly II when she was initially diagnosed but she was not a candidate for surgery or radiation because of extremely severe COPD. She was mildly anemic on admission with a hemoglobin of 10.1. Her pain is significantly improved with kyphoplasty. I am going to defer pain management to Dr. May at this point because her pain is due to a compression fracture and not due to any evidence of metastatic disease from her cancer. However, Dr. May did perform a biopsy of the 10th thoracic vertebra and results are pending. The patient is off all treatment for her lung cancer at this point but I anticipate resuming Keytruda at some point. She has what appears to be stage III B disease but she is not a candidate for radiation or surgical resection even if this were an earlier stage. Her COPD is too severe. I will follow-up on her in my office. - Time spent with patient Time with patient DS: Greater than 30 minutes Discharge Plan - Discharge Data Disposition: Disch To Home/Self Care Condition at Discharge: Guarded Discharge Diet: advance to your usual diet Activity: resume usual activities as tolerated Hygiene: no restrictions Weight Bearing at Discharge: weight bear as tolerated Driving: other Contact your physician if you experience:: fever over 101, Difficulty voiding, Redness or swelling, Nausea/Vomiting, Shortness of breath, Bleeding, pain uncontrolled by pain medications - Discharge Medications Continue Albuterol Neb [Proventil Neb] 2.5 mg RESP TX BID PRN PRN Reason: Shortness Of Breath/Wheezing Omeprazole [Prilosec] 40 mg PO DAILY Tizanidine HCl 4 mg PO Q6H PRN PRN Reason: MUSCLE SPASMS Albuterol Sulfate [Ventolin HFA] 2 puff INH Q4H PRN PRN Reason: Shortness Of Breath/Wheezing Potassium Chloride 20 meq PO DAILY No Action Budesonide/Formoterol 80-4.5 [Symbicort 80-4.5] 2 puff INH BID Gabapentin Cap/Tab [Neurontin Cap/Tab] 300 mg PO TID PRN PRN Reason: Pain Rotigotine [Neupro 4 mg/24 hr Patch] 1 patch TRANSDERM DAILY Amlodipine Besylate 10 mg PO DAILY - Follow Up or Referral - Forms/Instructions Additional Discharge Instructions: Discharge. Cancel appointment for next week. Schedule appointment to see me in 1 month with chest x-ray, CBC, CMP, LDH and red top tube. Copy of this discharge summary to Dr. May and Dr. Stuart De Jesus. Exam - Constitutional Vitals: Period Temp Pulse Resp BP Sys/Chang Pulse Ox Last 24 Hr 97.5 F-98.8 F 83-115 16-22 102-163/54-110 90-96 Discharge Results Procedures and tests throughout hospitalization: Pending Orders 12/01/16 16:30 Blood Culture Stat Labs on day of discharge: Labs from last 24 hours 12/05/16 11:15 Potassium 4.7 Preliminary micro results at discharge 12/01/16 16:30 Blood Culture - Preliminary Blood No growth at 3 days 12/01/16 16:30 Blood Culture - Preliminary Blood No growth at 3 days DS: Provider Date of admission: 12/03/16 16:04 Primary care physician: Bahman Chi DO Attending physician on admission: Lucas Thao MD Consults: 12/04/16 07:26 Consult to Physician [CONS] Routine Comment: Patient known to you. Please assist. Consulting Provider: Stuart De Jesus Consulting Provider Notified: Yes When should Consulting Provider be notified: Now Consult to Specialist Group: Pulmonology When should Consulting Provider be notified: Now Person Notified: nuha Date Notified: 12/04/16 Time Notified: 09:23 12/04/16 07:59 Consult to Physician [CONS] Routine Comment: compression fracture, pain Consulting Provider: Jose Daniel May Consulting Provider Notified: Yes When should Consulting Provider be notified: Now Consult to Specialist Group: Pain Management When should Consulting Provider be notified: Now Person Notified: MARIN Date Notified: 12/04/16 Time Notified: 09:04 Discharging clinician: Lucas Thao MD
[2016-12-06] MEDS: BUDESONIDE/FORMOTEROL 80-4.5 INHALER 6.9 GM INH SCH (09:29)
[2016-12-06] MEDS: methylPREDNISolone SOD SUC 40 MG/1 ML VIAL IV SCH (09:30)
[2016-12-06] MEDS: FLUoxetine 20 MG CAPSULE PO SCH (09:31)
[2016-12-06] MEDS: amLODIPine 10 MG TABLET PO SCH (09:31)
[2016-12-06] MEDS: GABAPENTIN 300 MG CAPSULE PO PRN (09:31)
[2016-12-06] MEDS: PANTOPRAZOLE 40 MG VIAL IV SCH (09:31)
[2016-12-06] MEDS: THEOPHYLLINE ER (24 HR) 400 MG CAPSULE PO SCH (09:31)
--- NOTE | 2016-12-06 11:23 | Pathology Report from [facility] ---
[facility] [place]ESSION # : [id number] PATIENT NAME : Nicholas Cid ORDERING DR : Jose Daniel May MD CLINICAL HX: Compression fracture T7 POST-OP DX: Same SPECIMEN INFO: T7 bone biopsy GROSS DESCRIPTION: Received in formalin labeled NICHOLAS CID is a 0.3 x 0.2 hemorrhagic vertebral body biopsy submitted in one cassette following decalcification. DIAGNOSIS FOR NICHOLAS CID: T7 BONE BIOPSY: Trabecular bone with hemorrhagic marrow. No evidence of malignancy. COLLECTED DATE: 12/05/2016 [facility] REPORT DATE: 12/06/2016 ELECTRONICALLY SIGNED BY: Beth Rodriguez III, M.D. 12/06/2016 - 9:58:41 MTDD
[2016-12-06] MEDS: LACTATED RINGERS 1,000 ML IV SCH (12:32)
--- NOTE | 2016-12-06 15:57 | XRay Report ---
Exam: XR spine 1V Date: 12/05/2016 Indication: Kyphoplasty Comparison: None Technical: 8 fluoroscopic images obtained with 36.6 seconds fluoroscopy time provided to Dr. May 4 kyphoplasty. Findings: Kyphoplasty performed with some extravasation of contrast anteriorly minimally present Impression: 1. Kyphoplasty performed at the at the intended therapeutic level PROCEDURE INTERPRETED AT [facility] DEPARTMENT OF RADIOLOGY Final Report Signed by: Dr. Emerson Angeles
[2016-12-06 17:19] VITALS: BP 115/66
[2016-12-06] MEDS ORDERED: ZOLEDRONIC ACID 4 MG in PREMIX 1 EACH IV ONE (17:47)
[2016-12-06] MEDS ORDERED: HEPARIN LOCK FLUSH 500 UNIT/5 ML SYRINGE IV ONE (18:21)
[2016-12-06] MEDS: LEVOFLOXACIN INJ 500 MG in PREMIX 1 EACH IV SCH (19:12)
== END 2016-12-06 20:30 | disposition home or self-care (01) | DRG 982 ==
LOC: N.ED 15:55 → N.EDINP 15:55 → N.4E 19:43
PROVIDERS: ADMIT Specialist; ATTEND Specialist

== ENCOUNTER 2017-01-05 12:22 | Inpatient (IN) ==
[2017-01-05] MEDS ORDERED: methylPREDNISolone SOD SUC 125 MG/2 ML VIAL IV STA (13:03)
[2017-01-05] MEDS ORDERED: LEVOFLOXACIN 500 MG TABLET PO STA (13:03)
[2017-01-05] MEDS ORDERED: ONDANSETRON 4 MG/2 ML VIAL IV PRN (13:03)
--- NOTE | 2017-01-05 13:28 | XRay Report ---
XR chest 1V portable Indication: Shortness of breath. Chest one view: Comparison 12/04/2016. Mediport catheter, normal heart size and mediastinal contour, bilateral suprahilar, and bibasilar interstitial scarring appears stable. No new infiltrates are seen. Pleural spaces are clear. Impression: Interstitial scarring as described. No acute cardiopulmonary disease present. PROCEDURE INTERPRETED AT [facility] DEPARTMENT OF RADIOLOGY Final Report Signed by: Lucas Christensen M.D.
[2017-01-05] MEDS ORDERED: ALBUTEROL 2.5 MG/3 ML NEB RESP TX SCH (13:30)
[2017-01-05 13:33] LABS: Basophils # 0.1 10*3/uL (0.0-0.2); Basophils % 0.2 % (0.0-0.8); Eosinophils % 0.1 % (0.00-10.9); Hematocrit 39.8 VOL% (35.7-47.0); Hemoglobin 13.2 GM/DL (12.0-16.0); Immature Granulocytes % 1.4 %; Lymphocytes # 0.6 10*3/uL (1.4-4.0); Lymphocytes % 2.7 % (21.3-54.2); Mean Corpuscular HGB Conc 33.2 GM/DL (32-36); Mean Corpuscular Hemoglobin 30 PG (27-34); Mean Corpuscular Volume 89.6 FL (87-102); Mean Platelet Volume 8.7 FL (9.6-12.0); Monocytes # 0.2 10*3/uL (0.11-0.8); Monocytes % 1.1 % (1.7-12.7); Neutrophils # 19.9 10*3/uL (1.4-7.4); Neutrophils % 94.5 % (38.7-73.9); Platelet Count 438 T/CUMM (130-400); Red Blood Count 4.44 MC/CUMM (3.8-5.5); White Blood Count 21.1 T/CUMM (4-12)
[2017-01-05] MEDS ORDERED: LEVOFLOXACIN 500 MG TABLET ONE (13:39)
[2017-01-05] MEDS ORDERED: ONDANSETRON 4 MG/2 ML VIAL ONE (13:39)
[2017-01-05] MEDS ORDERED: methylPREDNISolone SOD SUC 125 MG/2 ML VIAL ONE (13:39)
[2017-01-05 13:40] LABS: Apearance,Urine CLEAR (Clear); Bacteria,Urine Occasional /HPF (Few); Bilirubin,Urine Negative (Negative); Blood, Urine Negative (Negative); Glucose,Urine (UA) Negative (Negative); Ketones,Urine 5 mg/dL (Negative); Nitrite,Urine Negative (Negative); Protein,Urine Negative; RBC,Urine <1 /HPF (0-4); Squamous Epithelial Cell,Urine Occasional /HPF (0-10); Urine Color Yellow (Yellow); Urine Specific Gravity 1.016 (1.001-1.035); Urine Urobilinogen < 2.0 EU/DL (0.2-1.0); WBC,Urine 1 /HPF (0-6)
[2017-01-05 13:51] LABS: ABG Base Excess 5.2 MMOL/L (-2.5-2.5); ABG HCO3 28.9 MMOL/L (20-26); ABG Oxygen Saturation 90.5 % (95-100); ABG PCO2 55.9 MM HG (35-48); ABG PH 7.367 (7.35-7.45); ABG PO2 62.6 MM HG (80-95); ABG TCO2 28.5 MMOL/L (23-27)
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
[2017-01-05 13:56] LABS: Alanine Aminotransferase 33 U/L (13-56); Albumin 4.2 G/DL (3.4-5.0); Alkaline Phosphatase 167 U/L (45-117); Aspartate Amino Transferase 18 U/L (0-37); Blood Urea Nitrogen 12 MG/DL (7-18); Calcium 9.2 MG/DL (8.5-10.1); Glucose 112 MG/DL (74-106); Magnesium 1.7 MG/DL (1.8-2.4); Osmolality,Calculated 260.8 MOS/KG (273-304); Sodium 130 MMOL/L (136-145); Total Protein 7.3 G/DL (6.4-8.3); Troponin I Only < 0.015 NG/ML (0.00-0.045)
[2017-01-05 14:06] LABS: Eosinophils 1 % (0-10); Hypochromasia Slight; Lymphocytes 4 % (20-55); Platelet Estimate Normal; Segmented Neutrophils 95 % (50-85); Total Cells Counted 100
[2017-01-05 14:08] LABS: PT Patient Result 10.9 SECS; Partial Thromboplastin Time 28.2 SECS (0-40)
[2017-01-05] MEDS ORDERED: guaiFENesin/DM ER 600-30 MG TABLET PO PRN (16:16)
[2017-01-05] MEDS ORDERED: ALBUTEROL 2.5 MG/3 ML NEB RESP TX PRN ×2 (16:18→18:16)
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
[2017-01-05] MEDS: ENOXAPARIN 40 MG/0.4 ML SYRINGE SUBCUT SCH (18:39)
[2017-01-05] MEDS: SODIUM CHLORIDE 0.9% 1,000 ML IV SCH (18:44)
[2017-01-05] MEDS: ALBUTEROL/IPRATROPIUM 3 ML NEB RESP TX SCH (19:43)
[2017-01-05] MEDS: methylPREDNISolone SOD SUC 40 MG/1 ML VIAL IV SCH (21:00)
[2017-01-05] MEDS: BUDESONIDE/FORMOTEROL 80-4.5 INHALER 6.9 GM INH SCH (21:02)
[2017-01-06] MEDS: ALBUTEROL/IPRATROPIUM 3 ML NEB RESP TX SCH ×4 (00:56→20:21)
[2017-01-06 05:03] LABS: Basophils % 0.1 % (0.0-0.8); Hematocrit 34.2 VOL% (35.7-47.0); Hemoglobin 11.1 GM/DL (12.0-16.0); Immature Granulocytes % 2.1 %; Immature Granulocytes Absolute 0.19 #; Lymphocytes # 0.5 10*3/uL (1.4-4.0); Lymphocytes % 5.6 % (21.3-54.2); Mean Corpuscular HGB Conc 32.5 GM/DL (32-36); Mean Corpuscular Hemoglobin 29 PG (27-34); Mean Corpuscular Volume 89.5 FL (87-102); Mean Platelet Volume 8.9 FL (9.6-12.0); Monocytes # 0.1 10*3/uL (0.11-0.8); Monocytes % 1.2 % (1.7-12.7); Neutrophils # 8.1 10*3/uL (1.4-7.4); Platelet Count 374 T/CUMM (130-400); Red Blood Count 3.82 MC/CUMM (3.8-5.5); Red Cell Distribution Width 14.1 % (9.3-17.3)
[2017-01-06 05:51] LABS: Calcium 8.3 MG/DL (8.5-10.1); Osmolality,Calculated 262.7 MOS/KG (273-304); Potassium 4.5 MMOL/L (3.5-5.1)
[2017-01-06 06:13] LABS: Hypochromasia 1+; Lymphocytes 5 % (20-55); Segmented Neutrophils 94 % (50-85); Total Cells Counted 100
[2017-01-06 06:14] LABS: Microcytosis Slight; Platelet Estimate Normal
[2017-01-06] MEDS: methylPREDNISolone SOD SUC 40 MG/1 ML VIAL IV SCH ×3 (06:52→20:44)
[2017-01-06] MEDS: SODIUM CHLORIDE 0.9% 1,000 ML IV SCH ×3 (06:52→20:45)
[2017-01-06] MEDS: NON-FORMULARY MEDICATION (Nicotine Polacrilex [Nicotine Lozenge] 4 MG) PO SCH ×2 (07:11→07:12)
[2017-01-06] MEDS: ONDANSETRON 4 MG/2 ML VIAL IV PRN ×3 (08:19→18:29)
[2017-01-06] MEDS ORDERED: ROTIGOTINE TRANSDERM SCH (09:00)
[2017-01-06] MEDS ORDERED: PANTOPRAZOLE 40 MG TABLET PO SCH (09:00)
[2017-01-06] MEDS: LEVOFLOXACIN INJ 750 MG in PREMIX 1 EACH IV SCH (09:05)
[2017-01-06] MEDS: FLUoxetine 20 MG CAPSULE PO SCH (09:06)
[2017-01-06] MEDS: amLODIPine 10 MG TABLET PO SCH (09:06)
[2017-01-06] MEDS: LISINOPRIL 20 MG TABLET PO SCH (09:07)
[2017-01-06] MEDS: BUDESONIDE/FORMOTEROL 80-4.5 INHALER 6.9 GM INH SCH ×2 (09:07→20:46)
--- NOTE | 2017-01-06 11:20 | Hospitalist Progress Note ---
Assessment and Plan (1) Hypomagnesemia Status: Acute Assessment and plan: Magnesium level noted at 1.7. We will initiate magnesium replacement protocol, correct deficit, and recheck in a.m. 01/06-deficit corrected; magnesium level noted at 2.0. Current Visit: Yes (2) COPD exacerbation Status: Acute Assessment and plan: The patient reports that she is a current smoker. She has required multiple hospitalizations in the past for COPD exacerbations. We have started empiric antibiotic coverage, inhaled bronchodilators, and intravenous corticosteroids. We will recheck chest x-ray in a.m. We will provide supportive care in the clinical encounter. 01/06-we will continue empiric antibiotics, inhaled bronchodilators, and intravenous corticosteroids. We will recheck chest x-ray in a.m. Patient experiences no significant overnight events; will assess for discharge in a.m. Current Visit: Yes Hospitalist: Subjective Interval history: Patient seen and examined; chart reviewed. No significant overnight events reported. Patient states "I feel a little better". Exam - Constitutional Vitals: Period Temp Pulse Resp BP Sys/Chang Pulse Ox Last 24 Hr 96.7 F-97.9 F 85-101 16-26 110-140/53-81 90-99 General appearance: normal weight, no acute distress - Head Head exam: Present: normal inspection, normocephalic - Eye Eye exam: Present: EOMI. Absent: conjunctival injection Pupils: Present: BHARATH, normal accommodation - ENT ENT exam: Present: normal exam, normal external ear exam, normal oropharynx - Neck Neck exam: Present: normal inspection. Absent: lymphadenopathy, meningismus, thyromegaly - Respiratory Respiratory exam: Present: wheezes (Scattered). Absent: accessory muscle use, decreased breath sounds - Cardiovascular Cardiovascular exam: Present: regular rate and rhythm. Absent: carotid bruit, diastolic murmur, gallop, JVD, rubs, tachycardia - GI/Abdominal GI/Abdominal exam: Present: normal bowel sounds, soft. Absent: tenderness - Extremities Exam Extremities exam: Present: normal inspection, normal capillary refill, full ROM. Absent: edema - Back Exam Back exam: Present: normal inspection - Neurological Exam Neurological exam: Present: alert, oriented X3, CN II-XII intact - Psychiatric Psychiatric exam: Present: anxious - Skin Skin exam: Present: normal color, warm, dry Results - Labs CBC & BMP: 01/06/17 04:23 01/06/17 04:23 Lab Results: I have reviewed the past 24 hour labs
[2017-01-06] MEDS: DOCUSATE SODIUM 100 MG CAPSULE PO PRN (13:40)
[2017-01-06] MEDS: ENOXAPARIN 40 MG/0.4 ML SYRINGE SUBCUT SCH (18:11)
[2017-01-06] MEDS: ZALEPLON 5 MG CAPSULE PO PRN (20:43)
[2017-01-07] MEDS: ALBUTEROL/IPRATROPIUM 3 ML NEB RESP TX SCH ×4 (02:13→20:44)
[2017-01-07 05:03] LABS: Basophils % 0.1 % (0.0-0.8); Hematocrit 31.6 VOL% (35.7-47.0); Hemoglobin 10.3 GM/DL (12.0-16.0); Immature Granulocytes % 2.6 %; Immature Granulocytes Absolute 0.42 #; Lymphocytes # 0.5 10*3/uL (1.4-4.0); Mean Corpuscular HGB Conc 32.6 GM/DL (32-36); Mean Corpuscular Hemoglobin 29 PG (27-34); Mean Corpuscular Volume 88.5 FL (87-102); Mean Platelet Volume 8.9 FL (9.6-12.0); Monocytes # 0.4 10*3/uL (0.11-0.8); Monocytes % 2.6 % (1.7-12.7); Neutrophils # 15.1 10*3/uL (1.4-7.4); Neutrophils % 91.7 % (38.7-73.9); Platelet Count 373 T/CUMM (130-400); Red Blood Count 3.57 MC/CUMM (3.8-5.5); Red Cell Distribution Width 14.6 % (9.3-17.3); White Blood Count 16.4 T/CUMM (4-12)
[2017-01-07 05:37] LABS: Alanine Aminotransferase 24 U/L (13-56); Albumin 3.1 G/DL (3.4-5.0); Alkaline Phosphatase 105 U/L (45-117); Aspartate Amino Transferase 15 U/L (0-37); Bilirubin,Total < 0.39 MG/DL (0.2-1.0); Blood Urea Nitrogen 13 MG/DL (7-18); Calcium 8.3 MG/DL (8.5-10.1); Glucose 193 MG/DL (74-106); Magnesium 1.8 MG/DL (1.8-2.4); Osmolality,Calculated 270.4 MOS/KG (273-304); Phosphorous 1.9 MG/DL (2.5-4.9); Potassium 4.4 MMOL/L (3.5-5.1); Sodium 133 MMOL/L (136-145); Total Protein 5.6 G/DL (6.4-8.3)
[2017-01-07 05:46] LABS: Band Neutrophils 3 % (0-10); Lymphocytes 4 % (20-55); Platelet Estimate Normal; Segmented Neutrophils 88 % (50-85); Total Cells Counted 100
[2017-01-07] MEDS: methylPREDNISolone SOD SUC 40 MG/1 ML VIAL IV SCH ×3 (06:19→20:15)
[2017-01-07] MEDS: ONDANSETRON 4 MG/2 ML VIAL IV PRN ×3 (06:21→20:13)
--- NOTE | 2017-01-07 09:15 | Event Note ---
Encounter patient on a.m. rounds this morning. Patient informed of intended discharge. Immediately after being informed of the pending discharge this afternoon patient became irate and yelling at me. She reported that she had requested pain management consultation. I informed the patient after concurring with Dr. Armas on yesterday that a pain management consultation was not warranted during this admission. When asked about her pain management physician, the patient stated that she "did not know his name". After I after I informed her again of her pending discharge this afternoon patient became verbally aggressive stating "I do not like the way you are looking at me'. I proceeded to exit the room and informed the nursing staff of the intent to discharge the patient this afternoon. The patient refused physical assessment. I contacted Dr. Pineda regarding the patient's current status; he will see and evaluate the patient.
[2017-01-07] MEDS ORDERED: POTASSIUM PHOS/SOD PHOS POWDER 250 MG PACK PO ONE (09:26)
[2017-01-07] MEDS: FLUoxetine 20 MG CAPSULE PO SCH (09:32)
[2017-01-07] MEDS: amLODIPine 10 MG TABLET PO SCH (09:32)
[2017-01-07] MEDS: LEVOFLOXACIN INJ 750 MG in PREMIX 1 EACH IV SCH (09:32)
[2017-01-07] MEDS: LISINOPRIL 20 MG TABLET PO SCH (09:41)
[2017-01-07] MEDS: BUDESONIDE/FORMOTEROL 80-4.5 INHALER 6.9 GM INH SCH ×2 (09:41→20:18)
[2017-01-07] MEDS: SODIUM CHLORIDE 0.9% 1,000 ML IV SCH ×3 (09:41→23:03)
--- NOTE | 2017-01-07 11:07 | XRay Report ---
Portable chest Date: 01/07/2017 Clinical history: COPD Comparison: 01/05/2017 Technique: Portable AP sitting chest Findings: The heart is normal in size with stable left subclavian venous access catheter. Chronic scarring in the lungs which remain overexpanded with progressive diffuse parenchymal findings at the lung bases. Stable mediastinum and osseous structures. Impression: Bullous emphysema with progressive atelectasis/infiltration/edema at the lung bases. Stable left subclavian venous access catheter. PROCEDURE INTERPRETED AT [facility] DEPARTMENT OF RADIOLOGY Final Report Signed by: Dr. Vijaya Bar
--- NOTE | 2017-01-07 11:40 | Hospitalist Progress Note ---
Assessment and Plan (1) COPD exacerbation Status: Acute Assessment and plan: Patient has been on antibiotics white count is elevated without fever this could be destroyed. She still subjectively very short of breath and has been on bronchodilators she has been on both short and long-acting beta agonist also patient not on long-acting anticholinergic which may be a next step she has always seen pulmonary here and I will consult Dr. De Jesus patient also requested to see pulmonary as she is concerned about her breathing which is worse than her baseline Current Visit: Yes (2) Back pain Status: Acute Assessment and plan: Status post kyphoplasty recently. She has seen Dr. May for and will notify of her presence Current Visit: Yes Hospitalist: Subjective Interval history: Ms. Cid 61-year-old female she was admitted with the worsening shortness of breath. She has history of COPD and lung cancer. She is being followed by Dr. Thao for cancer management . She is a past smoker and has quit smoking about a year ago. She has no fever but complained of yellow sputum production. Her dyspnea still worse and get short of breath on minimal exertion. She also has some abdominal pain in upper abdomen and she feels is being bloated. She had no bowel movement for 2 days but still passing gases. She is also reported that she had the kyphoplasty recently when she was admitted last time and she continued to have back pain. Her MRI then showed evidence of a compression fracture of T7 with marrow edema. She says that she has MRI scheduled for tomorrow and was requesting if his pain provider be notified about her being here. Exam - Constitutional Vitals: Period Temp Pulse Resp BP Sys/Chang Pulse Ox Last 24 Hr 96.0 F-97.9 F 80-100 16-22 101-141/60-99 91-99 General appearance: mild distress - Respiratory Respiratory exam: Absent: rhonchi (Bilateral poor equal entry with the some rhonchi on auscultation) - Cardiovascular Cardiovascular exam: Present: regular rate and rhythm. Absent: tachycardia - GI/Abdominal GI/Abdominal exam: Present: normal bowel sounds, distended, soft. Absent: tenderness - Extremities Exam Extremities exam: Present: normal capillary refill. Absent: edema - Neurological Exam Neurological exam: Present: alert, oriented X3 Results - Labs CBC & BMP: 01/07/17 04:31 07/16/17 04:31 Lab Results: I have reviewed the past 24 hour labs
[2017-01-07] MEDS: DOCUSATE SODIUM 100 MG CAPSULE PO PRN ×2 (14:44→20:13)
[2017-01-07] MEDS ORDERED: HydrOXYzine PAMOATE 25 MG CAPSULE PO ONE (14:53)
--- NOTE | 2017-01-07 15:40 | XRay Report ---
Exam: XR KUB Date: 01/07/2017 2:52 PM Comparison: 10/31/2016 Indication: Generalized abdominal pain Technique:[Supine abdomen] Findings: Mild gaseous distention of the colon centered at the level of the splenic flexure. Progressive fecal material in the colon. Prior cholecystectomy and right hip replacement with postoperative findings in the left hip. Degenerative changes are noted. Impression: Mild gaseous distention of the colon centered at the level of the splenic flexure which could be related to ileus, increased fecal material, etc. Stable post operative findings. PROCEDURE INTERPRETED AT [facility] DEPARTMENT OF RADIOLOGY Final Report Signed by: Dr. Vijaya Bar
[2017-01-07] MEDS ORDERED: MAGNESIUM HYDROXIDE SUSP 30 ML UDCUP PO ONE (16:17)
[2017-01-07] MEDS: ENOXAPARIN 40 MG/0.4 ML SYRINGE SUBCUT SCH (17:55)
[2017-01-07] MEDS: POLYETHYLENE GLYCOL POWDER 17 GM PACK PO PRN (20:18)
[2017-01-07] MEDS: POTASSIUM PHOS/SOD PHOS POWDER 250 MG PACK PO SCH (20:18)
[2017-01-08] MEDS: ALBUTEROL/IPRATROPIUM 3 ML NEB RESP TX SCH ×4 (02:21→19:29)
[2017-01-08] MEDS: ACETAMINOPHEN 325 MG TABLET PO PRN (03:17)
[2017-01-08] MEDS: SODIUM CHLORIDE 0.9% 1,000 ML IV SCH ×2 (04:30→12:52)
[2017-01-08] MEDS: ONDANSETRON 4 MG/2 ML VIAL IV PRN ×3 (06:10→21:28)
[2017-01-08] MEDS: methylPREDNISolone SOD SUC 40 MG/1 ML VIAL IV SCH ×3 (06:11→21:28)
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
[2017-01-08] MEDS: ARFORMOTEROL 15 MCG/2 ML NEB RESP TX SCH ×2 (08:12→19:29)
[2017-01-08] MEDS: PANTOPRAZOLE 40 MG TABLET PO PRN (08:20)
[2017-01-08] MEDS: DOCUSATE SODIUM 100 MG CAPSULE PO PRN ×2 (08:20→21:28)
[2017-01-08] MEDS: amLODIPine 10 MG TABLET PO SCH (08:20)
[2017-01-08] MEDS: LISINOPRIL 20 MG TABLET PO SCH (08:20)
[2017-01-08] MEDS: FLUoxetine 20 MG CAPSULE PO SCH (08:21)
[2017-01-08] MEDS: GABAPENTIN 300 MG CAPSULE PO PRN (08:21)
[2017-01-08] MEDS: POTASSIUM PHOS/SOD PHOS POWDER 250 MG PACK PO SCH ×2 (08:21→21:29)
[2017-01-08] MEDS: LEVOFLOXACIN INJ 750 MG in PREMIX 1 EACH IV SCH (08:21)
[2017-01-08] MEDS: LUBIPROSTONE 24 MCG CAPSULE PO SCH ×2 (11:44→21:28)
[2017-01-08] MEDS ORDERED: MAGNESIUM CITRATE 300 ML BOTTLE PO ONE (15:12)
--- NOTE | 2017-01-08 16:13 | Magnetic Resonance Report ---
History: Back pain. History of lung cancer Date: 01/08/2017 Study: MRI thoracic spine without IV contrast Comparison exam: December 04, 2016 The thoracic spine was imaged in the sagittal and axial planes on the 1.5 Toya magnet without IV contrast. Sequences include T1, T2, and STIR images. The thoracic cord is normal in caliber and signal without intrinsic mass lesion or edema on this noncontrast study. There is a relatively acute 50% T6 compression fracture without gross retropulsion. This is a moderate amount of associated marrow edema which partially extends into the pedicles. The fracture planes appear to be confined to the vertebral body itself. There has been interval kyphoplasty of the T7 compression fracture with hypointense surgical cement on all sequences. There is mild 3 to 4 mm retropulsion at T7 which has slightly increased since the previous exam. The other vertebral bodies are well aligned. There is exaggerated kyphosis at the T6-T7 level. There is mild scattered disc desiccation. There is no obvious paravertebral soft tissue mass at T6 or T7 to specifically suggest pathologic fracture. There is a rounded hyperintense T1 and T2 hemangioma T12. Impression: Acute T6 compression fracture which was not present on previous study. This has no gross retropulsion. Interval kyphoplasty at T7. There is slightly increased retropulsion at T7 compared to the previous exam. There is exaggerated kyphosis at T6-T7 No additional fractures or additional changes. No disc herniation. No cord edema PROCEDURE INTERPRETED AT [facility] DEPARTMENT OF RADIOLOGY Final Report Signed by: Dr. Jessica Krishnan
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
--- NOTE | 2017-01-08 16:47 | Hospitalist Progress Note ---
Assessment and Plan (1) COPD exacerbation Status: Acute Assessment and plan: continue Levaquin, Solumedrol, and nebulizer treatments; Brovana started per pulmonology Current Visit: Yes (2) Compression fracture Status: Acute Assessment and plan: New Compression fracture; Dr. May will so a Kyphoplasty in AM Current Visit: No (3) Constipation Status: Acute Assessment and plan: laxatives ordered Current Visit: Yes Hospitalist: Subjective Interval history: Ms. Cid is a 61-year-old female with a history of COPD, anxiety, depression, seizures, and a recent kyphoplasty for compression fracture. Patient was admitted to the hospitalist service for COPD exacerbation. Patient also complains of back pain and constipation. MRI done of back and patient has a new compression fracture. No other complaints. Exam - Constitutional Vitals: Period Temp Pulse Resp BP Sys/Chang Pulse Ox Last 24 Hr 96.8 F-98.1 F 73-101 17-93 100-154/51-89 90-100 General appearance: no acute distress, over weight - Head Head exam: Present: atraumatic - Respiratory Respiratory exam: Present: other (coarse breath sounds) - Cardiovascular Cardiovascular exam: Present: regular rate and rhythm - GI/Abdominal GI/Abdominal exam: Present: normal bowel sounds, distended (mild), tenderness ( mild) - Extremities Exam Extremities exam: Absent: edema - Back Exam Back exam: Present: other (vertebral tenderness in the thoracic area) - Neurological Exam Neurological exam: Present: alert, normal gait - Psychiatric Psychiatric exam: Present: normal affect, normal mood - Skin Skin exam: Present: normal color Results - Labs CBC & BMP: 01/07/17 04:31 01/07/17 04:31
[2017-01-08] MEDS: METHYLNALTREXONE 12 MG/0.6 ML VIAL SUBCUT SCH (17:32)
[2017-01-08] MEDS ORDERED: FAMOTIDINE 20 MG TABLET PO ONE (18:11)
[2017-01-08] MEDS: POLYETHYLENE GLYCOL POWDER 17 GM PACK PO PRN (21:28)
[2017-01-08] MEDS: ZALEPLON 5 MG CAPSULE PO PRN (21:28)
[2017-01-09] MEDS: SODIUM CHLORIDE 0.9% 1,000 ML IV SCH ×2 (00:29→14:25)
[2017-01-09] MEDS: ALBUTEROL/IPRATROPIUM 3 ML NEB RESP TX SCH ×4 (01:35→19:15)
[2017-01-09] MEDS: methylPREDNISolone SOD SUC 40 MG/1 ML VIAL IV SCH ×2 (05:55→13:27)
[2017-01-09] MEDS: ARFORMOTEROL 15 MCG/2 ML NEB RESP TX SCH ×2 (07:11→19:15)
--- NOTE | 2017-01-09 07:42 | EKG Report ---
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
[2017-01-09] MEDS ORDERED: HYDROmorphone 2 MG/1 ML VIAL IV ONE (08:01)
[2017-01-09] MEDS: amLODIPine 10 MG TABLET PO SCH (08:42)
[2017-01-09] MEDS: POTASSIUM PHOS/SOD PHOS POWDER 250 MG PACK PO SCH (08:42)
[2017-01-09] MEDS: LUBIPROSTONE 24 MCG CAPSULE PO SCH ×2 (08:42→20:42)
[2017-01-09] MEDS: LISINOPRIL 20 MG TABLET PO SCH (08:42)
[2017-01-09] MEDS: FLUoxetine 20 MG CAPSULE PO SCH (08:43)
[2017-01-09] MEDS: LEVOFLOXACIN INJ 750 MG in PREMIX 1 EACH IV SCH (08:43)
[2017-01-09] MEDS: METHYLNALTREXONE 12 MG/0.6 ML VIAL SUBCUT SCH (08:43)
--- NOTE | 2017-01-09 08:44 | Pulmonology Progress Note ---
Pulmonary - PN: Subj Interval history: Patient is a 61-year-old white lady that has COPD and a history of lung cancer. She came in with some shortness of breath but does seem to be a little better. She has been having trouble with constipation. She also has compression fractures of her back. She is going today for kyphoplasty. She feels like her breathing is better today. Exam (Progress Note) - Constitutional Vitals: Period Temp Pulse Resp BP Sys/Chang Pulse Ox Last 24 Hr 97.0 F-98.2 F 77-96 18-22 100-165/52-76 90-99 Exam: General appearance: no acute distress, over weight, he is breathing comfortably and in no distress. - Head Head exam: Present: normal inspection, normocephalic - Eye Eye exam: Present: EOMI. Absent: scleral icterus Pupils: Present: BHARATH - ENT ENT exam: Present: normal exam - Neck Neck exam: Present: normal inspection. Absent: lymphadenopathy, thyromegaly - Respiratory Respiratory exam: Present: She has fair air movement with diminished breath sounds but not much wheezing now. - Cardiovascular Cardiovascular exam: Present: regular rate and rhythm. Absent: gallop, JVD, systolic murmur - GI/Abdominal GI/Abdominal exam: Present: distended, hypoactive bowel sounds, hernia (She does have a ventral hernia), tenderness. Absent: organomegaly, rebound - Extremities Exam Extremities exam: Absent: calf tenderness, edema - Back Exam Back exam: Present: vertebral tenderness - Neurological Exam Neurological exam: Present: alert, oriented X3, CN II-XII intact. Absent: motor sensory deficit - Psychiatric Psychiatric exam: Present: anxious - Skin Skin exam: Present: warm, dry Results - Labs CBC & BMP: 01/07/17 04:31 01/07/17 04:31 Assessment and Plan (1) Constipation Status: Acute Assessment and plan: Patient has been taking pain medicines and now comes in with constipation. She is getting laxatives now. She may need an enema later. Current Visit: Yes (2) Ventral hernia Status: Acute Assessment and plan: Patient does have a fairly large ventral hernia but it reduces easily. Current Visit: Yes (3) Lung cancer Status: Acute Assessment and plan: The patient's lung cancer is doing well with therapy and her chest x-ray is unremarkable now. Current Visit: No Qualifiers: Laterality: left (4) COPD exacerbation Status: Acute Assessment and plan: Patient is complaining of shortness of breath but has been somewhat noncompliant with medications. She seems to be doing a little better with bronchodilator therapy. Current Visit: Yes (5) Chronic back pain Status: Acute Assessment and plan: The patient has had compression fractures and has been followed by the pain clinic. She is going for kyphoplasty today. Current Visit: Yes
[2017-01-09] MEDS ORDERED: TISSUE ADHESIVE 1 EACH APPLICATOR TOP ONE (10:33)
--- NOTE | 2017-01-09 11:52 | Anesthesia Post-Op ---
Anesthesia Post OP - Post Ansesthetic Evaluation Patient seen in post op: Yes Resp: within normal limits CV: within normal limits Mental: within normal limits Temp: within normal limits [id number]: within normal limits Nausea and Vomiting: within normal limits Pain: within normal limits
[2017-01-09] MEDS ORDERED: ONDANSETRON 4 MG/2 ML VIAL ONE ×2 (11:54→11:57)
[2017-01-09] MEDS ORDERED: HYDROmorphone 2 MG/1 ML VIAL ONE (11:54)
[2017-01-09] MEDS: HYDROmorphone 2 MG/1 ML VIAL IV PRN ×3 (11:55→12:10)
[2017-01-09] MEDS ORDERED: PROPOFOL 500 MG/50 ML BOTTLE IV ONE (11:57)
[2017-01-09] MEDS ORDERED: SODIUM CHLORIDE 0.9% 1,000 ML IV ONE (11:57)
[2017-01-09] MEDS ORDERED: MIDAZOLAM 2 MG/2 ML VIAL ONE (11:57)
[2017-01-09] MEDS ORDERED: fentaNYL 100 MCG/2 ML VIAL ONE (11:57)
[2017-01-09] MEDS ORDERED: ONDANSETRON 4 MG/2 ML VIAL IV PRN (12:02)
--- NOTE | 2017-01-09 16:06 | Hospitalist Progress Note ---
Hospitalist: Subjective Interval history: Pt reports no BM in 1 week. Pt states she has been given multiple agents i.e. MOM, dulcolax and Relistor with no results. Tolerated kyphoplasty well. Pain better controlled post procedure. She reports SOB from abdominal distention. No fever. No cp. Exam - Constitutional Vitals: Period Temp Pulse Resp BP Sys/Chang Pulse Ox Last 24 Hr 96.2 F-98.7 F 79-90 16-22 106-143/49-92 92-98 Exam: Pt is awake, alert, chronically ill appearing, NAD RRR no M CTAB nonlabored, prolonged expiratory phase, diminished lung sounds throughout Soft, NT, ND, +BS Warm no c/c/e Results - Labs CBC & BMP: 01/07/17 04:31 01/07/17 04:31 - Impressions (1) COPD exacerbation Status: Acute Assessment and plan: - continue Levaquin, DC Solumedrol, and nebulizer treatments; Brovana started per pulmonology Current Visit: Yes (2) T6 Compression fracture; Recent T7 compression fracture Status: Acute Assessment and plan: - s/p Kyphoplasty 01/[address] May - Check Vitamin D level as I suspect osteoporosis and will likely need to start calcium with Vitamin D supplementation Current Visit: No (3) Constipation Status: Acute Assessment and plan: - laxatives ordered. Will do enema Current Visit: Yes (4) Hypotonic Hyponatremia - likely due to some degree of SIADH (On Prozac, hx lung cancer) and some dehydration. - Was improving by last labs (01/07). Check TSH as well. - Will recheck today and in am (5) Recent hypophosphatemia - I am unsure if this was previously supplemented. - Recheck now and replace as needed D/W pt and nurse and all questions answered. Possible dc in am if able to have BM pending labs.
[2017-01-09 16:44] LABS: Basophils # 0.1 10*3/uL (0.0-0.2); Basophils % 0.2 % (0.0-0.8); Hematocrit 35.9 VOL% (35.7-47.0); Hemoglobin 11.6 GM/DL (12.0-16.0); Immature Granulocytes % 5.3 %; Immature Granulocytes Absolute 1.31 #; Lymphocytes % 3.9 % (21.3-54.2); Mean Corpuscular HGB Conc 32.3 GM/DL (32-36); Mean Corpuscular Hemoglobin 29 PG (27-34); Mean Corpuscular Volume 90.2 FL (87-102); Mean Platelet Volume 8.7 FL (9.6-12.0); Monocytes # 2.2 10*3/uL (0.11-0.8); NRBC # 0.02 10*3/uL; Neutrophils # 20.1 10*3/uL (1.4-7.4); Neutrophils % 81.6 % (38.7-73.9); Platelet Count 373 T/CUMM (130-400); Red Blood Count 3.98 MC/CUMM (3.8-5.5); Red Cell Distribution Width 14.9 % (9.3-17.3); White Blood Count 24.6 T/CUMM (4-12)
[2017-01-09 17:02] LABS: Albumin 3.4 G/DL (3.4-5.0); Calcium 8.2 MG/DL (8.5-10.1); Magnesium 2.2 MG/DL (1.8-2.4); Osmolality,Calculated 265.5 MOS/KG (273-304); Phosphorous 3.5 MG/DL (2.5-4.9); Potassium 4.6 MMOL/L (3.5-5.1)
[2017-01-09 17:04] LABS: Lymphocytes 8 % (20-55); Segmented Neutrophils 89 % (50-85); Total Cells Counted 100
[2017-01-09 17:05] LABS: Platelet Estimate Increased
[2017-01-09 17:12] LABS: Free T4 (Free Thyroxine) 1.22 NG/DL (0.76-1.46); Thyroid Stimulating Hormone 0.372 uIU/ml (0.358-3.74)
[2017-01-09] MEDS ORDERED: BISACODYL 10 MG SUPP RECTAL ONE (17:21)
[2017-01-09] MEDS: POLYETHYLENE GLYCOL POWDER 17 GM PACK PO PRN (20:43)
[2017-01-09] MEDS: ZALEPLON 5 MG CAPSULE PO PRN ×2 (22:13→23:04)
[2017-01-09] MEDS: GABAPENTIN 300 MG CAPSULE PO PRN (22:13)
[2017-01-10] MEDS: ACETAMINOPHEN 325 MG TABLET PO PRN ×2 (00:10→09:15)
[2017-01-10] MEDS ORDERED: MORPHINE 2 MG/1 ML SYRINGE IV ONE (00:26)
[2017-01-10] MEDS: ALBUTEROL/IPRATROPIUM 3 ML NEB RESP TX SCH ×4 (00:46→19:54)
[2017-01-10 05:22] LABS: Basophils % 0.1 % (0.0-0.8); Hemoglobin 10.8 GM/DL (12.0-16.0); Immature Granulocytes % 3.8 %; Immature Granulocytes Absolute 0.85 #; Lymphocytes # 2.7 10*3/uL (1.4-4.0); Lymphocytes % 12.1 % (21.3-54.2); Mean Corpuscular HGB Conc 32.7 GM/DL (32-36); Mean Corpuscular Hemoglobin 29 PG (27-34); Mean Corpuscular Volume 88.5 FL (87-102); Mean Platelet Volume 8.7 FL (9.6-12.0); Monocytes # 2.2 10*3/uL (0.11-0.8); Monocytes % 9.7 % (1.7-12.7); NRBC # 0.02 10*3/uL; Neutrophils # 16.8 10*3/uL (1.4-7.4); Neutrophils % 74.3 % (38.7-73.9); Platelet Count 314 T/CUMM (130-400); Red Blood Count 3.73 MC/CUMM (3.8-5.5); Red Cell Distribution Width 14.8 % (9.3-17.3); White Blood Count 22.6 T/CUMM (4-12)
[2017-01-10 05:46] LABS: Band Neutrophils 2 % (0-10); Lymphocytes 15 % (20-55); Segmented Neutrophils 80 % (50-85); Total Cells Counted 100
[2017-01-10 05:47] LABS: Hypochromasia 1+; Platelet Estimate Adequate
[2017-01-10 05:52] LABS: Calcium 8.2 MG/DL (8.5-10.1); Osmolality,Calculated 265.2 MOS/KG (273-304); Phosphorous 2.4 MG/DL (2.5-4.9); Potassium 4.1 MMOL/L (3.5-5.1)
[2017-01-10] MEDS: ARFORMOTEROL 15 MCG/2 ML NEB RESP TX SCH ×2 (07:48→19:53)
[2017-01-10] MEDS: amLODIPine 10 MG TABLET PO SCH (08:05)
[2017-01-10] MEDS: DOCUSATE SODIUM 100 MG CAPSULE PO PRN (08:05)
[2017-01-10] MEDS: FLUoxetine 20 MG CAPSULE PO SCH (08:05)
[2017-01-10] MEDS: GABAPENTIN 300 MG CAPSULE PO PRN (08:06)
[2017-01-10] MEDS: LISINOPRIL 20 MG TABLET PO SCH (08:06)
[2017-01-10] MEDS: LUBIPROSTONE 24 MCG CAPSULE PO SCH ×2 (08:06→20:10)
[2017-01-10] MEDS: LEVOFLOXACIN INJ 750 MG in PREMIX 1 EACH IV SCH (08:06)
[2017-01-10] MEDS: METHYLNALTREXONE 12 MG/0.6 ML VIAL SUBCUT SCH (08:08)
--- NOTE | 2017-01-10 08:26 | Pulmonology Progress Note ---
Pulmonary - PN: Subj Interval history: Patient is a 61-year-old white lady that has COPD and a history of lung cancer. She came in with some shortness of breath but does seem to be a little better. She has been having trouble with constipation. She also has compression fractures of her back. She had kyphoplasty yesterday. She still says she is having some abdominal bloating and constipation. She had a suppository and enema yesterday. She had minimal results. She still feels bloated and tight in her upper abdomen. Her breathing otherwise is about the same. Exam (Progress Note) - Constitutional Vitals: Period Temp Pulse Resp BP Sys/Chang Pulse Ox Last 24 Hr 96.2 F-98 F 79-98 16-22 114-157/49-92 90-98 Exam: General appearance: no acute distress, over weight, he is breathing comfortably and in no distress. She does not seem to be too uncomfortable at present. - Head Head exam: Present: normal inspection, normocephalic - Eye Eye exam: Present: EOMI. Absent: scleral icterus Pupils: Present: BHARATH - ENT ENT exam: Present: normal exam - Neck Neck exam: Present: normal inspection. Absent: lymphadenopathy, thyromegaly - Respiratory Respiratory exam: Present: She has fair air movement with diminished breath sounds but not much wheezing now. - Cardiovascular Cardiovascular exam: Present: regular rate and rhythm. Absent: gallop, JVD, systolic murmur - GI/Abdominal GI/Abdominal exam: Present: distended, hypoactive bowel sounds, she does have abdominal distention and is still soft with only minimal tenderness. - Extremities Exam Extremities exam: Absent: calf tenderness, edema - Back Exam Back exam: Present: vertebral tenderness - Neurological Exam Neurological exam: Present: alert, oriented X3, CN II-XII intact. Absent: motor sensory deficit - Psychiatric Psychiatric exam: Present: anxious - Skin Skin exam: Present: warm, dry Results - Labs CBC & BMP: 01/10/17 04:55 01/10/17 04:55 Assessment and Plan (1) Constipation Status: Acute Assessment and plan: Patient has been taking pain medicines and now comes in with constipation. She is getting laxatives now. She does not feel like she has had very good results. Will ask GI to see. Current Visit: Yes (2) Ventral hernia Status: Acute Assessment and plan: Patient does have a fairly large ventral hernia but it reduces easily. She still feels like she is quite bloated in her upper abdomen Current Visit: Yes (3) Lung cancer Status: Acute Assessment and plan: The patient's lung cancer is doing well with therapy and her chest x-ray is unremarkable now. Current Visit: No Qualifiers: Laterality: left (4) COPD exacerbation Status: Acute Assessment and plan: Patient is complaining of shortness of breath but has been somewhat noncompliant with medications. She seems to be doing a little better with bronchodilator therapy. Her breathing seems to be stable at present. Current Visit: Yes (5) Chronic back pain Status: Acute Assessment and plan: The patient has had compression fractures and has been followed by the pain clinic. She had a kyphoplasty done yesterday. Current Visit: Yes
--- NOTE | 2017-01-10 12:27 | Pathology Report from [facility] ---
[facility] ACCESSION # : [id number] PATIENT NAME : Nicholas Cid ORDERING DR : Jose Daniel May MD CLINICAL HX: T6 compression fracure POST-OP DX: Same SPECIMEN INFO: T6 biopsy GROSS DESCRIPTION: The specimen is received in formalin labeled with the patients name and consists of three red-brown fragments of possible tissue collectively measuring 0.2 x 0.1 cm. Submitted in one cassette. DIAGNOSIS FOR NICHOLAS CID: T6 BIOPSY: Very scanty specimen with minute bony fragments and blood; no malignancy seen. COLLECTED DATE: 01/09/2017 [facility] REPORT DATE: 01/10/2017 ELECTRONICALLY SIGNED BY: Funmi De Guzman M.D. 01/10/2017 - 10:07:24 [facility]
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
--- NOTE | 2017-01-10 14:33 | CT Report ---
CT abdomen pelvis w con Indication: Generalized abdominal pain Comparison: CT chest abdomen pelvis dated July 05, 2016 Technique: Multiple axial tomographic images of the abdomen and pelvis were obtained after the administration of 100 cc Omnipaque 350 intravenous contrast. Findings: Patchy opacification within the bilateral lung bases suspicious for pneumonia, left greater than right. No worrisome focal hepatic abnormality. Status post cholecystectomy. The pancreas is grossly unremarkable. The spleen is grossly unremarkable. The bilateral adrenal glands are grossly unremarkable. The bilateral kidneys are grossly unremarkable. The urinary bladder is incompletely distended. Status post hysterectomy. There is no evidence of gastrointestinal obstruction or acute appendicitis. Moderate atherosclerotic calcifications demonstrated. Right total hip prosthesis. Partially visualized 3 orthopedic screws within the proximal left femur. Fat-containing supraumbilical hernia again demonstrated. IMPRESSION: Patchy opacification within the bilateral lung bases suspicious for pneumonia, left greater than right. Status post cholecystectomy, status post hysterectomy, fat-containing supraumbilical hernia, and other detailed findings as above. The CT exam was performed using one or more of the following dose reduction techniques: Automated exposure control, adjustment of the mA and/or kV according to patient size, or use of iterative reconstruction technique. PROCEDURE INTERPRETED AT [facility] DEPARTMENT OF RADIOLOGY Final Report Signed by: Dr Braeden Hastings
--- NOTE | 2017-01-10 14:44 | Hospitalist Progress Note ---
Hospitalist: Subjective Interval history: Pt seen around 9:20am. Pt was very agitated this am. Though 4 BM recorded overnight she feels she did not have good results. Reportedly, nursing reports she declined soap suds enema yesterday. When I asked her about it she started screaming "That nurse lied on me." She started crying during exam and then when I walked out the room after my exam was complete, she immediately stopped crying and moaning. She reported that she had severe left lower quadrant pain and screaming "I know something is wrong..." CT scan was ordered by me and showed bibasilar infiltrates worse on left. No constipation per radiologist and I discussed it in detail with him. No dysuria. She has received her breathing treatments and aerosols. Exam - Constitutional Vitals: Period Temp Pulse Resp BP Sys/Chang Pulse Ox Last 24 Hr 97.1 F-97.8 F 72-98 16-22 114-157/58-83 90-98 Exam: Pt is awake, alert, chronically ill appearing, NAD, labile mood RRR no M CTAB nonlabored, prolonged expiratory phase, diminished lung sounds throughout but appears better aeration today. Diminished at the bases. Soft, ND, +BS, LLQ TTP without rebound or guarding. Warm no c/c/e Results - Labs CBC & BMP: 01/10/17 04:55 01/10/17 04:55 - Impressions (1) Acute presumed bacterial pneumonia (possibly due to GPC +/- GNR) with acute COPD exacerbation Status: Acute Assessment and plan: - continue Levaquin, off steroids. Cont nebulizer treatments; Brovana started per pulmonology. Sputum culture pending. I have asked nurse to update Pulm of CT results. Current Visit: Yes (2) T6 Compression fracture; Recent T7 compression fracture in patient with likely osteoporosis Status: Acute Assessment and plan: - s/p Kyphoplasty 01/[address] May -Vitamin D level is low. Start calcium with Vitamin D supplementation Current Visit: No (3) Constipation- improved according to the CT scan Status: Acute Assessment and plan: - laxatives ordered. Nurse reports she had the enema today and did have a large bowel movement. She is still c/o pain - Consult GI. - CT abd/ pelvis showed Patchy opacification within the bilateral lung bases suspicious for pneumonia, left greater than right. Status post cholecystectomy , status post hysterectomy, fat-containing supraumbilical hernia, and other detailed findings as above. Current Visit: Yes (4) Hypotonic Hyponatremia - likely due to some degree of SIADH (On Prozac, hx lung cancer) and some dehydration. - Improving. TSH is normal (5) Recent hypophosphatemia - replaced. (6) Anxiety - trial of Tranxene D/W pt and nurse and all questions answered. DC pending GI evaluation. Specialty Discharge - Follow Up or Referrals Follow up with: Jose Daniel May MD [Physician] - 01/15/17 9:30 am
[2017-01-10] MEDS ORDERED: CLORAZEPATE 7.5 MG TABLET PO ONE (14:55)
[2017-01-10] MEDS: MORPHINE 2 MG/1 ML SYRINGE IV PRN ×3 (17:00→23:46)
[2017-01-10] MEDS: CALCIUM (CARBONATE)/VITAMIN D 600 MG-400 UNIT TABLET PO SCH (20:10)
[2017-01-10] MEDS: ONDANSETRON 4 MG/2 ML VIAL IV PRN (20:16)
[2017-01-10] MEDS: ZALEPLON 5 MG CAPSULE PO PRN (23:54)
[2017-01-11] MEDS: ALBUTEROL/IPRATROPIUM 3 ML NEB RESP TX SCH ×2 (00:48→07:37)
[2017-01-11] MEDS: MORPHINE 2 MG/1 ML SYRINGE IV PRN ×2 (03:08→10:30)
[2017-01-11] MEDS: ONDANSETRON 4 MG/2 ML VIAL IV PRN ×2 (06:25→11:01)
[2017-01-11] MEDS: ARFORMOTEROL 15 MCG/2 ML NEB RESP TX SCH (07:37)
[2017-01-11] MEDS: GABAPENTIN 300 MG CAPSULE PO PRN (08:33)
[2017-01-11] MEDS: DOCUSATE SODIUM 100 MG CAPSULE PO PRN (08:33)
[2017-01-11] MEDS: amLODIPine 10 MG TABLET PO SCH (08:33)
[2017-01-11] MEDS: FLUoxetine 20 MG CAPSULE PO SCH (08:33)
[2017-01-11] MEDS: LISINOPRIL 20 MG TABLET PO SCH (08:33)
[2017-01-11] MEDS: CALCIUM (CARBONATE)/VITAMIN D 600 MG-400 UNIT TABLET PO SCH (08:34)
[2017-01-11] MEDS: PANTOPRAZOLE 40 MG TABLET PO PRN (08:34)
[2017-01-11] MEDS: LEVOFLOXACIN INJ 750 MG in PREMIX 1 EACH IV SCH (08:34)
[2017-01-11] MEDS: LUBIPROSTONE 24 MCG CAPSULE PO SCH (08:34)
--- NOTE | 2017-01-11 08:41 | Gastrointestinal Progress Note ---
Assessment and Plan (1) Constipation Status: Acute Assessment and plan: 01/11-constipation relieved. Mild abdominal discomfort. Tolerating diet. CT findings noted. Plan an addendum followed by Dr. Krishnan. 01/10-1 week episode of obstipation with no prior history of constipation. No results from laxative/enemas. Recent increase in narcotic use for back pain related to compression fracture with recent kyphoplasty. For CT of abdomen with contrast today. Plan an addendum to followed by Dr. Krishnan Current Visit: Yes Gastroenterology - PN: Subj Interval history: CC: Constipation, abdominal pain Patient is awake and alert sitting up in bed this morning. States that she is feeling much better and rested well overnight. She is still complaining of some upper abdominal discomfort but states it is not pain such as it was yesterday. She has had multiple bowel movements throughout yesterday after the CT scan. She is having some nausea this morning but denies any vomiting and was able to tolerate her diet well. Patient states that she is for transfer to [facility] in [facility] later today tentatively. She denies any overt bleeding with her bowel movements. Abdomen is soft and nontender. She is noted to continue with leukocytosis with WBCs at 22,000 however she is afebrile. Pneumonia findings noted on CT scan on yesterday. ROS: Denies shortness of breath or chest pain Exam (Progress Note) - Constitutional Vitals: Period Temp Pulse Resp BP Sys/Chang Pulse Ox Last 24 Hr 97.2 F-98.2 F 84-98 18-20 108-123/59-72 89-93 - Other Additional findings: General appearance: normal weight, no acute distress - Head Head exam: Present: normal inspection, normocephalic - Eye Eye exam: Present: other (lids and conjunctiva unremarkable). Absent: scleral icterus - ENT ENT exam: Present: normal exam, normal oropharynx - Neck Neck exam: Present: normal inspection - Respiratory Respiratory exam: Present: clear to auscultation bilaterally. Absent: rales, rhonchi, wheezes - Cardiovascular Cardiovascular exam: Present: regular rate and rhythm. Absent: diastolic murmur , JVD, systolic murmur - GI/Abdominal GI/Abdominal exam: Present: normal bowel sounds, tenderness, soft. Absent: ascites, distended, mass, organomegaly - Extremities Exam Extremities exam: Present: normal inspection, full ROM - Back Exam Back exam: Present: normal inspection - Neurological Exam Neurological exam: Present: alert, oriented X3 - Psychiatric Psychiatric exam: Present: normal affect, normal mood - Skin Skin exam: Present: normal color, warm, dry Results - Labs CBC & BMP: 01/10/17 04:55 01/10/17 04:55 Lab Results: I have reviewed the past 24 hour labs Specialty Discharge - Follow Up or Referrals Follow up with: Jose Daniel May MD [Physician] - 01/15/17 9:30 am
--- NOTE | 2017-01-11 08:45 | Discharge Summary ---
Hospital Course - Hospital Course Hospital Course: Patient is a 61-year-old female with a history of COPD, lung cancer, osteoporosis status post a recent kyphoplasty of T7 who presented to the hospital with chief complaint of shortness of breath. Chest x-ray showed "intermittent scarring, bullous emphysema with progressive atelectasis and infiltrates and possible edema." She was diagnosed with a COPD exacerbation and started on IV steroids, IV Levaquin, bronchodilators, and oxygen. Pulmonology was consulted to assist with her management. Sputum and blood cultures were sent and were unremarkable. Patient slowly improved with treatment and IV steroids were able to be discontinued. Patient complained of back pain. Given her recent compression fracture, MRI of her thoracic spine was checked and was noted to have an "Acute T6 compression fracture which was not present on previous study. This has no gross retropulsion. Interval kyphoplasty at T7. There is slightly increased retropulsion at T7 compared to the previous exam. There is exaggerated kyphosis at T6-T7. No additional fractures or additional changes. No disc herniation. No cord edema." Patient underwent a kyphoplasty on 01/09. Vitamin D levels were checked and noted to be low since he was started on calcium and vitamin D supplementation. Dr. May with pain management was consulted to assist with her management. Patient was noted to have constipation and she was put on Amitiza, Relistor, and multiple laxatives and enemas. She finally was able to have a bowel movement. She complained of severe left upper quadrant pain. Relistor was stopped. CT scan of the abdomen and pelvis showed " CT abd/ pelvis showed Patchy opacification within the bilateral lung bases suspicious for pneumonia, left greater than right. Status post cholecystectomy, status post hysterectomy, fat-containing supraumbilical hernia". GI was consulted to assist with her management. His evaluation revealed she has had an extensive workup here and several hospitals. He recommended follow-up outpatient. For anxiety patient was given Tranxene a one-time dose with good results. Patient was noted to have hypotonic hyponatremia was seemed to improve during hospitalization. It was felt it was in part due to SIADH given her history of lung cancer and her being on Prozac and to some degree dehydration. Her TSH was checked and was within normal limits. Electrolytes were replaced as needed. At the time of discharge patient was tolerating a diet. Her abdominal pain was significantly improved. And she was breathing comfortably on oxygen at her home O2 requirement. Once she was cleared by all consultants she was discharged home with home health for ongoing care. - Time spent with patient Time with patient DS: Greater than 30 minutes (48 minutes) Diagnosis - Discharge Diagnosis (1) COPD exacerbation Status: Acute (2) Constipation Status: Acute (3) Hypomagnesemia Status: Resolved (4) Ventral hernia Status: Chronic (5) Adenocarcinoma of right lung Status: Chronic (6) Compression fracture Status: Acute Specialty Discharge - Follow Up or Referrals Follow up with: Jose Daniel May MD [Physician] - 01/15/17 9:30 am Stuart De Jesus MD [Physician] - 01/31/17 11:00 am md, pcp [Other] - 2 Weeks Discharge Plan - Discharge Data Disposition: Home Health Service Condition at Discharge: Stable Discharge Diet: diabetic diet, heart healthy Activity: resume usual activities as tolerated Contact your physician if you experience:: fever over 101, Difficulty voiding, Redness or swelling, Nausea/Vomiting, Shortness of breath, Bleeding, pain uncontrolled by pain medications - Discharge Medications New Albuterol/Ipratropium Neb [Duoneb] 3 ml RESP TX RT Q6H #120 vial Calcium (Carb)/Vit D 600-400 [Caltrate 600 + D] 1 tablet PO BID #60 tablet Docusate Sodium Cap [Colace Cap] 100 mg PO BID #30 capsule Levofloxacin Tab [Levaquin Tab] 750 mg PO DAILY #4 tablet Polyethylene Glycol Powder [Miralax] 17 gm PO DAILY PRN PRN Reason: Constipation Linaclotide [Linzess] 145 mcg PO AC BREAKFAST #30 capsule Continue Omeprazole [Prilosec] 40 mg PO DAILY PRN PRN Reason: GASTRIC UPSET Budesonide/Formoterol 80-4.5 [Symbicort 80-4.5] 2 puff INH BID Hydrocodone/Acetaminophen [Vernon 10-325 Tablet] 1 each PO Q12H Nicotine Polacrilex [Nicotine Lozenge] 4 mg PO Q2H Gabapentin Cap/Tab [Neurontin Cap/Tab] 300 mg PO TID Albuterol Sulfate [Ventolin HFA] 2 puff INH Q4H PRN PRN Reason: Shortness Of Breath/Wheezing Rotigotine [Neupro 4 mg/24 hr Patch] 1 patch TRANSDERM DAILY Amlodipine Besylate 10 mg PO DAILY Fluoxetine HCl 40 mg PO QAM Lisinopril 40 mg PO DAILY Ondansetron Odt Tab [Zofran Odt] 8 mg PO Q8H PRN PRN Reason: Nausea - Follow Up or Referral Follow Up: Jose Daniel May MD [Physician] - 01/15/17 9:30 am Stuart De Jesus MD [Physician] - 01/31/17 11:00 am - Forms/Instructions Exam - Constitutional Vitals: Period Temp Pulse Resp BP Sys/Chang Pulse Ox Last 24 Hr 97.2 F-98.2 F 84-98 18-20 108-123/59-72 89-93 Exam: GEN: Patient is awake alert and oriented 3 lying in the hospital bed comfortable in no acute distress. Chronically ill-appearing CV: RRR no M LUNGS: CTAB nonlabored, prolonged expiratory phase, diminished lung sounds throughout but appears better aeration today. Diminished at the bases. ABD: Soft, ND, +BS, LLQ TTP without rebound or guarding. EXT: Warm no c/c/e Discharge Results Procedures and tests throughout hospitalization: Pending Orders 01/09/17 21:15 Sputum Culture and Gram Stain Routine Labs on day of discharge: Preliminary micro results at discharge 01/09/17 21:15 Sputum Culture - Preliminary Sputum Normal Stephanie at 12 hours DS: Provider Date of admission: 01/05/17 16:16 Primary care physician: Bahman Chi DO Attending physician on admission: Nakul Petersen MD Consults: 01/05/17 16:18 Consult to Case Mgmt/Social Srvs [CONS] Routine Reason for Case Mgmt/Social Srvs: Discharge Planning 01/07/17 11:47 Consult to Physician [CONS] Routine Comment: Known to Dr. De Jesus for COPD Consulting Provider: Stuart De Jesus Consult to Specialist Group: Pulmonology When should Consulting Provider be notified: In am Person Notified: DR De Jesus Date Notified: 01/08/17 Time Notified: 07:45 01/07/17 11:48 Consult to Physician [CONS] Routine Comment: Known to Dr. May for recent kyphoplasty Consulting Provider: Jose Daniel May Consulting Provider Notified: No When should Consulting Provider be notified: In am Person Notified: MARTIN Date Notified: 01/08/17 Time Notified: 09:17 Consult Notification Comment: 01/09/17 10:05 Consult to Occupational Therapy [CONS] Routine Reason for Occupational Therapy: Evaluate and Treat Consult to Physical Therapy [CONS] Routine Reason for Physical Therapy: Evaluate and Treat 01/10/17 09:48 Consult to Physician [CONS] Routine Comment: abd pain Consulting Provider: Emerson Krishnan Consult to Specialist Group: Gastroenterology When should Consulting Provider be notified: Now Person Notified: CASPER BRYCE Date Notified: 01/10/17 Time Notified: 10:02 Discharging clinician: Sunitha Aguilar MD
[2017-01-11 08:49] VITALS: BP 122/66
--- NOTE | 2017-01-11 09:23 | Pulmonology Progress Note ---
Pulmonary - PN: Subj Interval history: Patient is a 61-year-old white lady that has COPD and a history of lung cancer. She came in with some shortness of breath but does seem to be a little better. She has been having trouble with constipation. She also has compression fractures of her back. She had kyphoplasty. Her back pain is getting a little better. She had a CT scan does not show signs of obstruction. She did have a good bowel movement yesterday. Her abdominal discomfort is better. She is not coughing much and her shortness of breath is better. Her CT scan is noted and much of this is probably some scarring and bronchiectasis. She can go home on oral antibiotics for now. Exam (Progress Note) - Constitutional Vitals: Period Temp Pulse Resp BP Sys/Chang Pulse Ox Last 24 Hr 97.2 F-98.7 F 70-98 18-20 108-123/59-72 89-97 Exam: General appearance: no acute distress, over weight, she is breathing comfortably and in no distress. - Head Head exam: Present: normal inspection, normocephalic - Eye Eye exam: Present: EOMI. Absent: scleral icterus Pupils: Present: BHARATH - ENT ENT exam: Present: normal exam - Neck Neck exam: Present: normal inspection. Absent: lymphadenopathy, thyromegaly - Respiratory Respiratory exam: Present: She has fair air movement with diminished breath sounds but not much wheezing now. She does not have a lot of rales at all. - Cardiovascular Cardiovascular exam: Present: regular rate and rhythm. Absent: gallop, JVD, systolic murmur - GI/Abdominal GI/Abdominal exam: Present: distended, hypoactive bowel sounds, she does have abdominal distention and is still soft with only minimal tenderness. - Extremities Exam Extremities exam: Absent: calf tenderness, edema - Back Exam Back exam: Present: vertebral tenderness - Neurological Exam Neurological exam: Present: alert, oriented X3, CN II-XII intact. Absent: motor sensory deficit - Psychiatric Psychiatric exam: Present: anxious - Skin Skin exam: Present: warm, dry Results - Labs CBC & BMP: 01/10/17 04:55 01/10/17 04:55 Assessment and Plan (1) Constipation Status: Acute Assessment and plan: Patient has been taking pain medicines and now comes in with constipation. She is getting laxatives now. Her CT scan did not show any obstruction. She did have some results with laxatives now. Current Visit: Yes (2) Ventral hernia Status: Acute Assessment and plan: Patient does have a fairly large ventral hernia but it reduces easily. She still feels like she is quite bloated in her upper abdomen Current Visit: Yes (3) Lung cancer Status: Acute Assessment and plan: The patient's lung cancer is doing well with therapy and her chest x-ray is unremarkable now. Current Visit: No Qualifiers: Laterality: left (4) COPD exacerbation Status: Acute Assessment and plan: Patient is complaining of shortness of breath but has been somewhat noncompliant with medications. She seems to be doing a little better with bronchodilator therapy. Her breathing seems to be stable at present. She can go home on bronchodilators and antibiotics. Current Visit: Yes (5) Chronic back pain Status: Acute Assessment and plan: The patient has had compression fractures and has been followed by the pain clinic. She had a kyphoplasty done. Her back pain is better now. Current Visit: Yes Specialty Discharge - Follow Up or Referrals Follow up with: Jose Daniel May MD [Physician] - 01/15/17 9:30 am Stuart De Jesus MD [Physician] -
--- NOTE | 2017-01-11 11:51 | Pain Management Progress Note ---
Assessment and Plan (1) Compression fracture Status: Acute Assessment and plan: s/p T6 kypho, biopsy negative. Pain improved. She is scheduled for [facility]. Questions answered, f/u [facility] as neeed. Current Visit: No Pain - Subjective Interval history: s/p kyphoplasty T6 with good results, no complications. Exam - Constitutional Vitals: Period Temp Pulse Resp BP Sys/Chang Pulse Ox Last 24 Hr 97.2 F-98.7 F 70-98 18-20 108-123/59-68 89-97 Results - Labs CBC & BMP: 01/10/17 04:55 01/10/17 04:55 Specialty Discharge - Follow Up or Referrals Follow up with: Jose Daniel May MD [Physician] - 01/15/17 9:30 am Stuart De Jesus MD [Physician] - 01/31/17 11:00 am
== END 2017-01-11 14:05 | disposition swing bed (61) | DRG 167 ==
LOC: N.ED 12:22 → SUATTDRO 16:16 → N.EDINP 16:16 → N.5E 17:56
PROVIDERS: ADMIT Internal Medicine; ATTEND Pediatrics

== ENCOUNTER 2018-02-18 13:45 | Inpatient (IN) ==
[2018-02-18] MEDS ORDERED: ALBUTEROL NEB SOLN 5 MG/ML 20 ML/BOTTLE CONT NEB STA (14:16)
[2018-02-18] MEDS ORDERED: ALBUTEROL 2.5 MG/3 ML NEB RESP TX PRN (15:38)
[2018-02-18] MEDS ORDERED: ONDANSETRON 4 MG/2 ML VIAL IV PRN (15:41)
[2018-02-18] MEDS ORDERED: methylPREDNISolone SOD SUC 40 MG/1 ML VIAL IV SCH (16:30)
[2018-02-18] MEDS: LEVOFLOXACIN INJ 750 MG in PREMIX 1 EACH IV SCH (18:50)
[2018-02-18] MEDS ORDERED: ALBUTEROL/IPRATROPIUM 3 ML NEB RESP TX SCH (19:00)
[2018-02-18] MEDS: ALBUTEROL/IPRATROPIUM 3 ML NEB RESP TX SCH (20:52)
[2018-02-18] MEDS: PRAMIPEXOLE 0.25 MG TABLET PO SCH (20:56)
[2018-02-18] MEDS: ENOXAPARIN 40 MG/0.4 ML SYRINGE SUBCUT SCH (20:56)
[2018-02-18] MEDS: methylPREDNISolone SOD SUC 40 MG/1 ML VIAL IV SCH (21:44)
[2018-02-19] MEDS: ALBUTEROL/IPRATROPIUM 3 ML NEB RESP TX SCH ×7 (01:42→23:05)
[2018-02-19 04:26] LABS: Basophils % 0.1 % (0.0-0.8); Hematocrit 38.1 VOL% (35.7-47.0); Immature Granulocytes % 0.8 %; Immature Granulocytes Absolute 0.07 #; Lymphocytes # 0.3 10*3/uL (1.4-4.0); Lymphocytes % 3.8 % (21.3-54.2); Mean Corpuscular HGB Conc 31.5 GM/DL (32-36); Mean Corpuscular Hemoglobin 29 PG (27-34); Mean Corpuscular Volume 91.4 FL (87-102); Mean Platelet Volume 9.8 FL (9.6-12.0); Monocytes # 0.2 10*3/uL (0.11-0.8); Monocytes % 1.7 % (1.7-12.7); Neutrophils # 8.2 10*3/uL (1.4-7.4); Neutrophils % 93.6 % (38.7-73.9); Platelet Count 335 T/CUMM (130-400); Red Blood Count 4.17 MC/CUMM (3.8-5.5); Red Cell Distribution Width 14.4 % (9.3-17.3); White Blood Count 8.7 T/CUMM (4-12)
[2018-02-19] MEDS: methylPREDNISolone SOD SUC 40 MG/1 ML VIAL IV SCH ×4 (04:37→20:48)
[2018-02-19 05:09] LABS: Band Neutrophils 2 % (0-10); Lymphocytes 7 % (20-55); Segmented Neutrophils 89 % (50-85); Total Cells Counted 100
[2018-02-19 05:10] LABS: Platelet Estimate Normal
[2018-02-19 05:11] LABS: Hypochromasia 1+
[2018-02-19 05:16] LABS: Calcium 9.3 MG/DL (8.5-10.1); Potassium 4.3 MMOL/L (3.5-5.1); Thyroid Stimulating Hormone 0.191 uIU/ml (0.358-3.74)
[2018-02-19] MEDS ORDERED: ROTIGOTINE TRANSDERM SCH (09:00)
[2018-02-19] MEDS: FLUoxetine 20 MG CAPSULE PO SCH (09:31)
[2018-02-19] MEDS: THEOPHYLLINE ER (24 HR) 400 MG CAPSULE PO SCH (09:32)
[2018-02-19] MEDS: PANTOPRAZOLE 40 MG TABLET PO SCH (09:32)
[2018-02-19] MEDS: amLODIPine 10 MG TABLET PO SCH (09:32)
[2018-02-19] MEDS: GABAPENTIN 300 MG CAPSULE PO SCH ×3 (09:32→21:02)
[2018-02-19] MEDS: PRAMIPEXOLE 0.25 MG TABLET PO SCH (21:02)
[2018-02-19] MEDS: LEVOFLOXACIN INJ 750 MG in PREMIX 1 EACH IV SCH (21:02)
[2018-02-19] MEDS: ENOXAPARIN 40 MG/0.4 ML SYRINGE SUBCUT SCH (21:03)
[2018-02-20] MEDS: methylPREDNISolone SOD SUC 40 MG/1 ML VIAL IV SCH ×3 (03:15→16:10)
[2018-02-20] MEDS: ALBUTEROL/IPRATROPIUM 3 ML NEB RESP TX SCH ×6 (03:34→23:47)
[2018-02-20 05:58] LABS: Basophils % 0.1 % (0.0-0.8); Hematocrit 39.3 VOL% (35.7-47.0); Hemoglobin 12.6 GM/DL (12.0-16.0); Immature Granulocytes % 1.5 %; Immature Granulocytes Absolute 0.18 #; Lymphocytes # 0.5 10*3/uL (1.4-4.0); Lymphocytes % 3.7 % (21.3-54.2); Mean Corpuscular HGB Conc 32.1 GM/DL (32-36); Mean Corpuscular Hemoglobin 28 PG (27-34); Mean Corpuscular Volume 88.7 FL (87-102); Mean Platelet Volume 10.1 FL (9.6-12.0); Monocytes # 0.4 10*3/uL (0.11-0.8); Monocytes % 2.9 % (1.7-12.7); Neutrophils # 11.2 10*3/uL (1.4-7.4); Neutrophils % 91.8 % (38.7-73.9); Platelet Count 384 T/CUMM (130-400); Red Blood Count 4.43 MC/CUMM (3.8-5.5); Red Cell Distribution Width 14.7 % (9.3-17.3); White Blood Count 12.1 T/CUMM (4-12)
[2018-02-20 06:33] LABS: Band Neutrophils 2 % (0-10); Hypochromasia 1+; Lymphocytes 4 % (20-55); Platelet Estimate Adequate; Segmented Neutrophils 91 % (50-85); Total Cells Counted 100
[2018-02-20 06:44] LABS: Calcium 8.7 MG/DL (8.5-10.1); Osmolality,Calculated 273.1 MOS/KG (273-304); Potassium 4.3 MMOL/L (3.5-5.1)
[2018-02-20] MEDS: THEOPHYLLINE ER (24 HR) 400 MG CAPSULE PO SCH (08:47)
[2018-02-20] MEDS: PANTOPRAZOLE 40 MG TABLET PO SCH (08:48)
[2018-02-20] MEDS: amLODIPine 10 MG TABLET PO SCH (08:48)
[2018-02-20] MEDS: FLUoxetine 20 MG CAPSULE PO SCH (08:48)
[2018-02-20] MEDS: GABAPENTIN 300 MG CAPSULE PO SCH ×3 (08:48→21:27)
[2018-02-20] MEDS: ENOXAPARIN 40 MG/0.4 ML SYRINGE SUBCUT SCH (21:27)
[2018-02-20] MEDS: LEVOFLOXACIN INJ 750 MG in PREMIX 1 EACH IV SCH (21:27)
[2018-02-20] MEDS: PRAMIPEXOLE 0.25 MG TABLET PO SCH (21:27)
[2018-02-21] MEDS: methylPREDNISolone SOD SUC 40 MG/1 ML VIAL IV SCH (00:46)
[2018-02-21] MEDS: ALBUTEROL/IPRATROPIUM 3 ML NEB RESP TX SCH ×2 (03:39→08:00)
[2018-02-21 06:11] LABS: Calcium 8.7 MG/DL (8.5-10.1); Osmolality,Calculated 272.1 MOS/KG (273-304); Potassium 3.9 MMOL/L (3.5-5.1)
[2018-02-21 07:57] VITALS: BP 113/85
[2018-02-21] MEDS: GABAPENTIN 300 MG CAPSULE PO SCH (08:51)
[2018-02-21] MEDS: PANTOPRAZOLE 40 MG TABLET PO SCH (08:52)
[2018-02-21] MEDS: amLODIPine 10 MG TABLET PO SCH (08:52)
[2018-02-21] MEDS: THEOPHYLLINE ER (24 HR) 400 MG CAPSULE PO SCH (08:52)
[2018-02-21] MEDS: FLUoxetine 20 MG CAPSULE PO SCH (08:53)
[2018-02-21] MEDS ORDERED: methylPREDNISolone SOD SUC 40 MG/1 ML VIAL IV SCH (09:00)
[2018-02-22] MEDS ORDERED: predniSONE 20 MG TABLET PO SCH (09:00)
== END 2018-02-21 12:25 | disposition home or self-care (01) | DRG 191 ==
LOC: EDBD → EDUNIT# → N.ED 13:45 → N.EDINP 15:37 → N.2E 16:06
PROVIDERS: ADMIT Internal Medicine; ATTEND Internal Medicine

== ENCOUNTER 2018-07-13 13:57 | Inpatient (IN) ==
[2018-07-13] MEDS ORDERED: INFLUENZA VIRUS VACCINE 0.5 ML SYRINGE IM ONE (17:55)
[2018-07-13] MEDS ORDERED: PNEUMOCOCCAL VACCINE (13 VALENT) 0.5 ML SYRINGE IM ONE (17:55)
[2018-07-13] MEDS ORDERED: ALBUTEROL 2.5 MG/3 ML NEB RESP TX PRN (19:44)
[2018-07-13] MEDS: FLUoxetine 20 MG CAPSULE PO SCH (21:32)
[2018-07-13] MEDS: CALCIUM (CARBONATE)/VITAMIN D 600 MG-400 UNIT TABLET PO SCH (21:32)
[2018-07-13] MEDS: methylPREDNISolone SOD SUC 40 MG/1 ML VIAL IV SCH (21:33)
[2018-07-13] MEDS: ALBUTEROL/IPRATROPIUM 3 ML NEB RESP TX SCH (23:39)
[2018-07-14] MEDS ORDERED: ALBUTEROL/IPRATROPIUM 3 ML NEB RESP TX SCH (01:00)
[2018-07-14] MEDS: ALBUTEROL/IPRATROPIUM 3 ML NEB RESP TX SCH ×6 (03:17→23:57)
[2018-07-14] MEDS: methylPREDNISolone SOD SUC 40 MG/1 ML VIAL IV SCH ×3 (04:16→21:14)
[2018-07-14 05:28] LABS: Hematocrit 42.5 VOL% (35.7-47.0); Immature Granulocytes % 0.7 %; Immature Granulocytes Absolute 0.05 #; Lymphocytes # 0.4 10*3/uL (1.4-4.0); Lymphocytes % 5.9 % (21.3-54.2); Mean Corpuscular HGB Conc 30.1 GM/DL (32-36); Mean Corpuscular Hemoglobin 29 PG (27-34); Monocytes # 0.2 10*3/uL (0.11-0.8); Monocytes % 2.6 % (1.7-12.7); Neutrophils # 6.3 10*3/uL (1.4-7.4); Neutrophils % 90.8 % (38.7-73.9); Platelet Count 244 T/CUMM (130-400); Red Blood Count 4.38 MC/CUMM (3.8-5.5); Red Cell Distribution Width 12.4 % (9.3-17.3)
[2018-07-14 05:30] LABS: Hemoglobin 12.9 GM/DL (12.0-16.0)
[2018-07-14 06:12] LABS: Albumin 3.2 G/DL (3.4-5.0); Bilirubin,Total 0.4 MG/DL (0.2-1.0); Calcium 9.4 MG/DL (8.5-10.1); Osmolality,Calculated 261.8 MOS/KG (273-304); Potassium 4.7 MMOL/L (3.5-5.1); Total Protein 6.6 G/DL (6.4-8.3)
[2018-07-14 06:33] LABS: Band Neutrophils 1 % (0-10); Lymphocytes 8 % (20-55); Segmented Neutrophils 87 % (50-85)
[2018-07-14 06:34] LABS: Platelet Estimate Adequate; Total Cells Counted 100
[2018-07-14] MEDS ORDERED: ROTIGOTINE TRANSDERM SCH (09:00)
[2018-07-14] MEDS: PANTOPRAZOLE 40 MG VIAL IV SCH (09:50)
[2018-07-14] MEDS: CALCIUM (CARBONATE)/VITAMIN D 600 MG-400 UNIT TABLET PO SCH ×2 (09:55→21:13)
[2018-07-14] MEDS: amLODIPine 10 MG TABLET PO SCH (09:55)
[2018-07-14] MEDS: NAPROXEN 500 MG TABLET PO PRN (12:51)
[2018-07-14] MEDS: rOPINIRole 0.25 MG TABLET PO SCH ×2 (14:31→21:13)
[2018-07-14] MEDS: FLUoxetine 20 MG CAPSULE PO SCH (21:13)
[2018-07-15] MEDS: ALBUTEROL/IPRATROPIUM 3 ML NEB RESP TX SCH ×5 (03:46→20:27)
[2018-07-15] MEDS: methylPREDNISolone SOD SUC 40 MG/1 ML VIAL IV SCH ×3 (04:23→21:23)
[2018-07-15 04:33] LABS: Basophils % 0.1 % (0.0-0.8); Hematocrit 41.6 VOL% (35.7-47.0); Hemoglobin 12.7 GM/DL (12.0-16.0); Immature Granulocytes % 0.9 %; Immature Granulocytes Absolute 0.14 #; Lymphocytes # 0.4 10*3/uL (1.4-4.0); Lymphocytes % 2.9 % (21.3-54.2); Mean Corpuscular HGB Conc 30.5 GM/DL (32-36); Mean Corpuscular Hemoglobin 29 PG (27-34); Mean Corpuscular Volume 94.8 FL (87-102); Mean Platelet Volume 10.5 FL (9.6-12.0); Monocytes # 0.7 10*3/uL (0.11-0.8); Monocytes % 4.7 % (1.7-12.7); Neutrophils # 13.7 10*3/uL (1.4-7.4); Neutrophils % 91.4 % (38.7-73.9); Platelet Count 299 T/CUMM (130-400); Red Blood Count 4.39 MC/CUMM (3.8-5.5); Red Cell Distribution Width 12.5 % (9.3-17.3)
[2018-07-15 04:59] LABS: Calcium 8.8 MG/DL (8.5-10.1); Osmolality,Calculated 266.5 MOS/KG (273-304); Potassium 4.3 MMOL/L (3.5-5.1)
[2018-07-15 05:17] LABS: Band Neutrophils 1 % (0-10); Hypochromasia 1+; Lymphocytes 5 % (20-55); Platelet Estimate Adequate; Segmented Neutrophils 89 % (50-85); Total Cells Counted 100
[2018-07-15] MEDS: NAPROXEN 500 MG TABLET PO PRN (06:25)
[2018-07-15] MEDS: CALCIUM (CARBONATE)/VITAMIN D 600 MG-400 UNIT TABLET PO SCH ×2 (10:57→20:29)
[2018-07-15] MEDS: amLODIPine 10 MG TABLET PO SCH (10:57)
[2018-07-15] MEDS: PANTOPRAZOLE 40 MG VIAL IV SCH (10:57)
[2018-07-15] MEDS: rOPINIRole 0.25 MG TABLET PO SCH ×3 (10:57→20:29)
[2018-07-15] MEDS ORDERED: MAGNESIUM SULF RIDER 2 GM in PREMIX 1 EACH IV ONE (19:06)
[2018-07-15] MEDS: FLUoxetine 20 MG CAPSULE PO SCH (20:29)
[2018-07-16] MEDS: ALBUTEROL/IPRATROPIUM 3 ML NEB RESP TX SCH ×7 (00:44→23:50)
[2018-07-16 05:45] LABS: Basophils % 0.2 % (0.0-0.8); Hematocrit 39.3 VOL% (35.7-47.0); Hemoglobin 11.9 GM/DL (12.0-16.0); Immature Granulocytes Absolute 0.13 #; Lymphocytes # 0.3 10*3/uL (1.4-4.0); Lymphocytes % 2.5 % (21.3-54.2); Mean Corpuscular HGB Conc 30.3 GM/DL (32-36); Mean Corpuscular Hemoglobin 29 PG (27-34); Mean Corpuscular Volume 94.5 FL (87-102); Mean Platelet Volume 10.5 FL (9.6-12.0); Monocytes # 0.4 10*3/uL (0.11-0.8); Monocytes % 3.5 % (1.7-12.7); Neutrophils # 11.5 10*3/uL (1.4-7.4); Neutrophils % 92.8 % (38.7-73.9); Platelet Count 290 T/CUMM (130-400); Red Blood Count 4.16 MC/CUMM (3.8-5.5); Red Cell Distribution Width 12.9 % (9.3-17.3); White Blood Count 12.4 T/CUMM (4-12)
[2018-07-16 06:08] LABS: Calcium 8.5 MG/DL (8.5-10.1); Osmolality,Calculated 268.4 MOS/KG (273-304); Potassium 4.4 MMOL/L (3.5-5.1)
[2018-07-16] MEDS: ONDANSETRON 4 MG/2 ML VIAL IV PRN (06:12)
[2018-07-16] MEDS: methylPREDNISolone SOD SUC 40 MG/1 ML VIAL IV SCH ×3 (06:19→20:53)
[2018-07-16 06:32] LABS: Band Neutrophils 2 % (0-10); Hypochromasia 1+; Lymphocytes 3 % (20-55); Segmented Neutrophils 91 % (50-85); Total Cells Counted 100
[2018-07-16 06:33] LABS: Microcytosis 1+; Platelet Estimate Normal
[2018-07-16] MEDS: rOPINIRole 0.25 MG TABLET PO SCH ×3 (09:31→20:52)
[2018-07-16] MEDS: CALCIUM (CARBONATE)/VITAMIN D 600 MG-400 UNIT TABLET PO SCH ×2 (09:31→20:52)
[2018-07-16] MEDS: PANTOPRAZOLE 40 MG VIAL IV SCH (09:31)
[2018-07-16] MEDS: amLODIPine 10 MG TABLET PO SCH (09:31)
[2018-07-16] MEDS ORDERED: POLYVINYL ALCOHOL 1.4% OPH SOLN 15 ML BOTTLE BOTH EYES PRN (14:10)
[2018-07-16] MEDS ORDERED: LACTULOSE 20 GM/30 ML UDCUP PO ONE (15:49)
[2018-07-16] MEDS: FLUoxetine 20 MG CAPSULE PO SCH (20:53)
[2018-07-17] MEDS: DOXYCYCLINE HYCLATE 100 MG CAPSULE PO SCH ×3 (02:04→21:48)
[2018-07-17] MEDS: ALBUTEROL/IPRATROPIUM 3 ML NEB RESP TX SCH ×6 (03:40→23:43)
[2018-07-17] MEDS: methylPREDNISolone SOD SUC 40 MG/1 ML VIAL IV SCH ×3 (04:52→21:48)
[2018-07-17 06:15] LABS: Basophils % 0.1 % (0.0-0.8); Hematocrit 38.4 VOL% (35.7-47.0); Hemoglobin 11.7 GM/DL (12.0-16.0); Immature Granulocytes % 1.5 %; Immature Granulocytes Absolute 0.21 #; Lymphocytes # 0.3 10*3/uL (1.4-4.0); Lymphocytes % 2.2 % (21.3-54.2); Mean Corpuscular HGB Conc 30.5 GM/DL (32-36); Mean Corpuscular Hemoglobin 29 PG (27-34); Mean Corpuscular Volume 94.1 FL (87-102); Mean Platelet Volume 10.9 FL (9.6-12.0); Monocytes # 0.4 10*3/uL (0.11-0.8); Monocytes % 3.1 % (1.7-12.7); Neutrophils # 12.8 10*3/uL (1.4-7.4); Neutrophils % 93.1 % (38.7-73.9); Platelet Count 288 T/CUMM (130-400); Red Blood Count 4.08 MC/CUMM (3.8-5.5); White Blood Count 13.8 T/CUMM (4-12)
[2018-07-17 06:28] LABS: Calcium 8.4 MG/DL (8.5-10.1); Osmolality,Calculated 266.4 MOS/KG (273-304)
[2018-07-17 06:44] LABS: Band Neutrophils 1 % (0-10); Lymphocytes 3 % (20-55); Platelet Estimate Adequate; Segmented Neutrophils 91 % (50-85); Total Cells Counted 100
[2018-07-17 06:45] LABS: Hypochromasia 1+; Microcytosis Slight
[2018-07-17 06:50] LABS: Alanine Aminotransferase 96 U/L (13-56); Albumin 2.8 G/DL (3.4-5.0); Alkaline Phosphatase 59 U/L (45-117); Aspartate Amino Transferase 33 U/L (0-37); Bilirubin,Direct < 0.100 MG/DL (0.0-0.20); Bilirubin,Indirect 0.3 MG/DL (0.0-1.0); Bilirubin,Total < 0.39 MG/DL (0.2-1.0)
[2018-07-17] MEDS: CALCIUM (CARBONATE)/VITAMIN D 600 MG-400 UNIT TABLET PO SCH ×2 (08:51→21:48)
[2018-07-17] MEDS: amLODIPine 10 MG TABLET PO SCH (08:52)
[2018-07-17] MEDS: PANTOPRAZOLE 40 MG VIAL IV SCH (08:52)
[2018-07-17] MEDS: rOPINIRole 0.25 MG TABLET PO SCH ×3 (08:52→21:48)
[2018-07-17] MEDS: ONDANSETRON 4 MG/2 ML VIAL IV PRN ×2 (13:15→23:08)
[2018-07-17] MEDS: BISACODYL 5 MG TABLET PO SCH (15:47)
[2018-07-17 20:40] LABS: Apearance,Urine CLEAR (Clear); Bacteria,Urine Occasional /HPF (Few); Bilirubin,Urine Negative (Negative); Blood, Urine Negative (Negative); Glucose,Urine (UA) Negative (Negative); Ketones,Urine Negative (Negative); Mucus,Urine Occasional /LPF (Occasional); Nitrite,Urine Negative (Negative); Protein,Urine Negative; RBC,Urine <1 /HPF (0-4); Squamous Epithelial Cell,Urine Occasional /HPF (0-10); Urine Color Yellow (Yellow); Urine Specific Gravity 1.018 (1.001-1.035); Urine Urobilinogen < 2.0 EU/DL (0.2-1.0); WBC,Urine 1 /HPF (0-6)
[2018-07-17] MEDS: DOCUSATE SODIUM 100 MG CAPSULE PO SCH (21:48)
[2018-07-17] MEDS: FLUoxetine 20 MG CAPSULE PO SCH (21:48)
[2018-07-18] MEDS: methylPREDNISolone SOD SUC 40 MG/1 ML VIAL IV SCH ×2 (04:25→13:06)
[2018-07-18] MEDS: ALBUTEROL/IPRATROPIUM 3 ML NEB RESP TX SCH ×6 (04:37→23:38)
[2018-07-18 05:14] LABS: Basophils % 0.2 % (0.0-0.8); Hematocrit 39.9 VOL% (35.7-47.0); Hemoglobin 12.3 GM/DL (12.0-16.0); Immature Granulocytes % 3.1 %; Immature Granulocytes Absolute 0.42 #; Lymphocytes # 0.4 10*3/uL (1.4-4.0); Lymphocytes % 3.1 % (21.3-54.2); Mean Corpuscular HGB Conc 30.8 GM/DL (32-36); Mean Corpuscular Hemoglobin 29 PG (27-34); Mean Corpuscular Volume 94.1 FL (87-102); Monocytes # 0.6 10*3/uL (0.11-0.8); Monocytes % 4.2 % (1.7-12.7); Neutrophils # 12.2 10*3/uL (1.4-7.4); Neutrophils % 89.4 % (38.7-73.9); Platelet Count 336 T/CUMM (130-400); Red Blood Count 4.24 MC/CUMM (3.8-5.5); Red Cell Distribution Width 13.1 % (9.3-17.3); White Blood Count 13.6 T/CUMM (4-12)
[2018-07-18 05:40] LABS: Calcium 8.4 MG/DL (8.5-10.1); Osmolality,Calculated 270.2 MOS/KG (273-304); Potassium 4.7 MMOL/L (3.5-5.1)
[2018-07-18 06:04] LABS: Hypochromasia 1+; Lymphocytes 3 % (20-55); Microcytosis Slight; Platelet Estimate Adequate; Segmented Neutrophils 92 % (50-85); Total Cells Counted 100
[2018-07-18] MEDS: PANTOPRAZOLE 40 MG VIAL IV SCH (09:16)
[2018-07-18] MEDS: amLODIPine 10 MG TABLET PO SCH (09:17)
[2018-07-18] MEDS: DOXYCYCLINE HYCLATE 100 MG CAPSULE PO SCH ×2 (09:17→22:08)
[2018-07-18] MEDS: BISACODYL 5 MG TABLET PO SCH (09:17)
[2018-07-18] MEDS: CALCIUM (CARBONATE)/VITAMIN D 600 MG-400 UNIT TABLET PO SCH ×2 (09:17→22:09)
[2018-07-18] MEDS: DOCUSATE SODIUM 100 MG CAPSULE PO SCH ×2 (09:17→22:08)
[2018-07-18] MEDS: rOPINIRole 0.25 MG TABLET PO SCH ×3 (09:17→22:08)
[2018-07-18] MEDS ORDERED: MAGNESIUM CITRATE 300 ML BOTTLE PO PRN (14:42)
[2018-07-18] MEDS ORDERED: ENOXAPARIN 40 MG/0.4 ML SYRINGE SUBCUT SCH (15:00)
[2018-07-18] MEDS: POLYETHYLENE GLYCOL POWDER 17 GM PACK PO SCH (15:36)
[2018-07-18] MEDS: CLOTRIMAZOLE 10 MG TROCHE PO SCH ×2 (16:18→22:08)
[2018-07-18] MEDS: FLUoxetine 20 MG CAPSULE PO SCH (22:08)
[2018-07-18] MEDS: predniSONE 10 MG TABLET PO SCH (22:09)
[2018-07-19] MEDS: ALBUTEROL/IPRATROPIUM 3 ML NEB RESP TX SCH ×4 (02:45→16:00)
[2018-07-19 05:08] LABS: Basophils # 0.1 10*3/uL (0.0-0.2); Basophils % 0.5 % (0.0-0.8); Hematocrit 41.8 VOL% (35.7-47.0); Hemoglobin 12.7 GM/DL (12.0-16.0); Immature Granulocytes % 4.5 %; Immature Granulocytes Absolute 0.79 #; Lymphocytes # 0.7 10*3/uL (1.4-4.0); Lymphocytes % 3.7 % (21.3-54.2); Mean Corpuscular HGB Conc 30.4 GM/DL (32-36); Mean Corpuscular Hemoglobin 29 PG (27-34); Mean Platelet Volume 9.8 FL (9.6-12.0); Monocytes # 1.3 10*3/uL (0.11-0.8); Monocytes % 7.3 % (1.7-12.7); NRBC # 0.02 10*3/uL; Neutrophils # 14.6 10*3/uL (1.4-7.4); Platelet Count 372 T/CUMM (130-400); Red Cell Distribution Width 13.2 % (9.3-17.3); White Blood Count 17.4 T/CUMM (4-12)
[2018-07-19 05:16] LABS: Calcium 8.6 MG/DL (8.5-10.1); Osmolality,Calculated 265.5 MOS/KG (273-304); Potassium 4.3 MMOL/L (3.5-5.1)
[2018-07-19 05:26] LABS: Hypochromasia 1+; Microcytosis Slight
[2018-07-19 05:27] LABS: Platelet Estimate Normal; Polychromasia Slight
[2018-07-19] MEDS ORDERED: PANTOPRAZOLE 40 MG TABLET PO SCH (09:00)
[2018-07-19] MEDS: POLYETHYLENE GLYCOL POWDER 17 GM PACK PO SCH (10:31)
[2018-07-19] MEDS: CLOTRIMAZOLE 10 MG TROCHE PO SCH ×2 (10:32→14:48)
[2018-07-19] MEDS: DOXYCYCLINE HYCLATE 100 MG CAPSULE PO SCH (10:32)
[2018-07-19] MEDS: DOCUSATE SODIUM 100 MG CAPSULE PO SCH (10:32)
[2018-07-19] MEDS: amLODIPine 10 MG TABLET PO SCH (10:32)
[2018-07-19] MEDS: BISACODYL 5 MG TABLET PO SCH (10:32)
[2018-07-19] MEDS: CALCIUM (CARBONATE)/VITAMIN D 600 MG-400 UNIT TABLET PO SCH (10:32)
[2018-07-19] MEDS: predniSONE 10 MG TABLET PO SCH (10:33)
[2018-07-19] MEDS: rOPINIRole 0.25 MG TABLET PO SCH (10:40)
[2018-07-19 13:12] VITALS: BP 115/57
[2018-07-19] MEDS ORDERED: HEPARIN LOCK FLUSH 500 UNIT/5 ML SYRINGE IV ONE (15:09)
== END 2018-07-19 15:47 | disposition home or self-care (01) | DRG 191 ==
LOC: N.4E 17:19 → SUATTDRO 17:19
PROVIDERS: ADMIT Internal Medicine; ATTEND Hospitalist

== ENCOUNTER 2018-09-11 15:53 | Inpatient (IN) ==
[2018-09-11] MEDS ORDERED: ALBUTEROL NEB SOLN 5 MG/ML 20 ML/BOTTLE CONT NEB STA (16:33)
[2018-09-11] MEDS ORDERED: ALBUTEROL 2.5 MG/3 ML NEB RESP TX PRN (17:26)
[2018-09-11] MEDS ORDERED: ONDANSETRON 4 MG/2 ML VIAL IV PRN (17:31)
[2018-09-11] MEDS ORDERED: ACETAMINOPHEN 325 MG TABLET PO PRN (17:31)
[2018-09-11] MEDS: LEVOFLOXACIN INJ 500 MG in PREMIX 1 EACH IV SCH (18:44)
[2018-09-11] MEDS ORDERED: ALBUTEROL/IPRATROPIUM 3 ML NEB RESP TX SCH (19:00)
[2018-09-11] MEDS ORDERED: LEVALBUTEROL 0.31 MG/3 ML NEB RESP TX PRN (19:25)
[2018-09-11] MEDS ORDERED: guaiFENesin/CODEINE 5 ML LIQUID PO PRN (19:26)
[2018-09-11 20:00] LABS: Amorphous Crystals,Urine Occasional /HPF (Few); Apearance,Urine Slightly Hazy (Clear); Bacteria,Urine Occasional /HPF (Few); Bilirubin,Urine Negative (Negative); Blood, Urine Negative (Negative); Glucose,Urine (UA) Negative (Negative); Ketones,Urine 20 mg/dL (Negative); Mucus,Urine Few /LPF (Occasional); Nitrite,Urine Negative (Negative); Protein,Urine 30 MG/DL; RBC,Urine <1 /HPF (0-4); Squamous Epithelial Cell,Urine Occasional /HPF (0-10); Urine Color Yellow (Yellow); WBC,Urine 2 /HPF (0-6)
[2018-09-11 20:05] LABS: Basophils % 0.2 % (0.0-0.8); Hematocrit 43.2 VOL% (35.7-47.0); Hemoglobin 12.6 GM/DL (12.0-16.0); Immature Granulocytes % 0.3 %; Immature Granulocytes Absolute 0.02 #; Lymphocytes # 0.2 10*3/uL (1.4-4.0); Lymphocytes % 3.5 % (21.3-54.2); Mean Corpuscular HGB Conc 29.2 GM/DL (32-36); Mean Corpuscular Hemoglobin 29 PG (27-34); Mean Corpuscular Volume 99.3 FL (87-102); Monocytes # 0.1 10*3/uL (0.11-0.8); Monocytes % 0.8 % (1.7-12.7); Neutrophils # 5.7 10*3/uL (1.4-7.4); Neutrophils % 95.2 % (38.7-73.9); Platelet Count 294 T/CUMM (130-400); Red Blood Count 4.35 MC/CUMM (3.8-5.5); Red Cell Distribution Width 12.9 % (9.3-17.3)
[2018-09-11 20:09] LABS: ABG Base Excess 19.6 MMOL/L (-2.5-2.5); ABG HCO3 43.9 MMOL/L (20-26); ABG Oxygen Saturation 93.2 % (95-100); ABG PH 7.409 (7.35-7.45); ABG PO2 64.4 MM HG (80-95); ABG TCO2 43.5 MMOL/L (23-27); Allen Test Positive
[2018-09-11 20:13] LABS: ABG PCO2 77.7 MM HG (35-48)
[2018-09-11] MEDS ORDERED: ALBUTEROL/IPRATROPIUM 3 ML NEB RESP TX PRN (20:27)
[2018-09-11] MEDS: guaiFENesin/DM ER 600-30 MG TABLET PO SCH (20:56)
[2018-09-11] MEDS: CALCIUM (CARBONATE)/VITAMIN D 600 MG-400 UNIT TABLET PO SCH (20:56)
[2018-09-11] MEDS: FLUoxetine 20 MG CAPSULE PO SCH (20:56)
[2018-09-11] MEDS: GABAPENTIN 300 MG CAPSULE PO SCH (20:56)
[2018-09-11] MEDS: DOCUSATE SODIUM 100 MG CAPSULE PO SCH (20:57)
[2018-09-11 20:58] LABS: Lymphocytes 5 % (20-55); Platelet Estimate Normal; Segmented Neutrophils 94 % (50-85)
[2018-09-11 20:59] LABS: Hypochromasia Slight; Stomatocytes 3+
[2018-09-11 21:00] LABS: Microcytosis Slight
[2018-09-11 21:02] LABS: Total Cells Counted 100
[2018-09-11] MEDS: LORazepam 2 MG/1 ML VIAL IV PRN (21:05)
[2018-09-11 21:13] LABS: Alanine Aminotransferase 34 U/L (13-56); Albumin 3.1 G/DL (3.4-5.0); Alkaline Phosphatase 82 U/L (45-117); Aspartate Amino Transferase 19 U/L (0-37); Bilirubin,Total < 0.39 MG/DL (0.2-1.0); Blood Urea Nitrogen 15 MG/DL (7-18); Calcium 8.8 MG/DL (8.5-10.1); Glucose 191 MG/DL (74-106); Osmolality,Calculated 275.1 MOS/KG (273-304); Potassium 3.7 MMOL/L (3.5-5.1); Sodium 135 MMOL/L (136-145); Total Protein 6.6 G/DL (6.4-8.3); Troponin I < 0.015 NG/ML (0.00-0.045)
[2018-09-11] MEDS: ENOXAPARIN 40 MG/0.4 ML SYRINGE SUBCUT SCH (22:40)
[2018-09-12] MEDS: ALBUTEROL/IPRATROPIUM 3 ML NEB RESP TX SCH ×4 (00:41→19:55)
[2018-09-12] MEDS ORDERED: LEVALBUTEROL 0.31 MG/3 ML NEB RESP TX SCH (01:00)
[2018-09-12 05:16] LABS: Basophils % 0.2 % (0.0-0.8); Hematocrit 40.7 VOL% (35.7-47.0); Hemoglobin 12.3 GM/DL (12.0-16.0); Immature Granulocytes % 0.6 %; Immature Granulocytes Absolute 0.06 #; Lymphocytes # 1.2 10*3/uL (1.4-4.0); Lymphocytes % 10.8 % (21.3-54.2); Mean Corpuscular HGB Conc 30.2 GM/DL (32-36); Mean Corpuscular Hemoglobin 29 PG (27-34); Mean Corpuscular Volume 96.4 FL (87-102); Mean Platelet Volume 10.1 FL (9.6-12.0); Monocytes # 1.3 10*3/uL (0.11-0.8); Monocytes % 12.6 % (1.7-12.7); Neutrophils # 8.1 10*3/uL (1.4-7.4); Neutrophils % 75.8 % (38.7-73.9); Platelet Count 311 T/CUMM (130-400); Red Blood Count 4.22 MC/CUMM (3.8-5.5); Red Cell Distribution Width 12.9 % (9.3-17.3); White Blood Count 10.7 T/CUMM (4-12)
[2018-09-12 05:35] LABS: Blood Urea Nitrogen 16 MG/DL (7-18); Calcium 9.8 MG/DL (8.5-10.1); Glucose 95 MG/DL (74-106); Osmolality,Calculated 270.1 MOS/KG (273-304); Potassium 4.2 MMOL/L (3.5-5.1); Sodium 135 MMOL/L (136-145)
[2018-09-12] MEDS ORDERED: amLODIPine 10 MG TABLET PO SCH (09:00)
[2018-09-12] MEDS ORDERED: ROTIGOTINE TRANSDERM SCH (09:00)
[2018-09-12] MEDS: DOCUSATE SODIUM 100 MG CAPSULE PO SCH ×2 (09:27→20:45)
[2018-09-12] MEDS: GABAPENTIN 300 MG CAPSULE PO SCH ×3 (09:27→20:45)
[2018-09-12] MEDS: PANTOPRAZOLE 40 MG TABLET PO SCH (09:28)
[2018-09-12] MEDS: CALCIUM (CARBONATE)/VITAMIN D 600 MG-400 UNIT TABLET PO SCH ×2 (09:28→20:45)
[2018-09-12] MEDS: methylPREDNISolone SOD SUC 40 MG/1 ML VIAL IV SCH ×2 (09:28→17:27)
[2018-09-12] MEDS: guaiFENesin/DM ER 600-30 MG TABLET PO SCH ×2 (09:28→20:45)
[2018-09-12] MEDS ORDERED: FAMOTIDINE 20 MG TABLET ONE (09:45)
[2018-09-12] MEDS ORDERED: DIAZEPAM 5 MG TABLET ONE ×2 (09:45)
[2018-09-12] MEDS: acetaZOLAMIDE 250 MG TABLET PO SCH (11:15)
[2018-09-12] MEDS: ENOXAPARIN 40 MG/0.4 ML SYRINGE SUBCUT SCH (20:45)
[2018-09-12] MEDS: FLUoxetine 20 MG CAPSULE PO SCH (20:45)
[2018-09-12] MEDS: LEVOFLOXACIN INJ 500 MG in PREMIX 1 EACH IV SCH (20:48)
[2018-09-13] MEDS: ALBUTEROL/IPRATROPIUM 3 ML NEB RESP TX SCH ×4 (00:05→19:00)
[2018-09-13] MEDS: methylPREDNISolone SOD SUC 40 MG/1 ML VIAL IV SCH ×3 (02:36→21:34)
[2018-09-13 05:04] LABS: Hematocrit 38.2 VOL% (35.7-47.0); Hemoglobin 11.6 GM/DL (12.0-16.0); Immature Granulocytes % 0.8 %; Immature Granulocytes Absolute 0.06 #; Lymphocytes # 0.4 10*3/uL (1.4-4.0); Lymphocytes % 4.9 % (21.3-54.2); Mean Corpuscular HGB Conc 30.4 GM/DL (32-36); Mean Corpuscular Hemoglobin 29 PG (27-34); Mean Platelet Volume 9.5 FL (9.6-12.0); Monocytes # 0.3 10*3/uL (0.11-0.8); Monocytes % 3.8 % (1.7-12.7); Neutrophils # 7.1 10*3/uL (1.4-7.4); Neutrophils % 90.5 % (38.7-73.9); Platelet Count 248 T/CUMM (130-400); Red Blood Count 4.02 MC/CUMM (3.8-5.5); White Blood Count 7.8 T/CUMM (4-12)
[2018-09-13 05:32] LABS: Calcium 8.7 MG/DL (8.5-10.1); Osmolality,Calculated 268.5 MOS/KG (273-304); Potassium 3.6 MMOL/L (3.5-5.1)
[2018-09-13 05:54] LABS: Band Neutrophils 1 % (0-10); Hypochromasia 1+; Lymphocytes 8 % (20-55); Microcytosis Slight; Platelet Estimate Adequate; Segmented Neutrophils 87 % (50-85); Total Cells Counted 100
[2018-09-13] MEDS ORDERED: MAGNESIUM SULF RIDER 2 GM in PREMIX 1 EACH IV PRN (07:34)
[2018-09-13] MEDS ORDERED: MAGNESIUM SULF RIDER 4 GM in PREMIX 1 EACH IV PRN (07:34)
[2018-09-13] MEDS: CALCIUM (CARBONATE)/VITAMIN D 600 MG-400 UNIT TABLET PO SCH ×2 (09:15→21:35)
[2018-09-13] MEDS: PANTOPRAZOLE 40 MG TABLET PO SCH (09:16)
[2018-09-13] MEDS: GABAPENTIN 300 MG CAPSULE PO SCH ×3 (09:16→21:35)
[2018-09-13] MEDS: DOCUSATE SODIUM 100 MG CAPSULE PO SCH ×2 (09:16→21:35)
[2018-09-13] MEDS: guaiFENesin/DM ER 600-30 MG TABLET PO SCH ×2 (09:16→21:35)
[2018-09-13] MEDS: acetaZOLAMIDE 250 MG TABLET PO SCH (09:18)
[2018-09-13] MEDS: FLUoxetine 20 MG CAPSULE PO SCH (21:34)
[2018-09-13] MEDS: ENOXAPARIN 40 MG/0.4 ML SYRINGE SUBCUT SCH (21:34)
[2018-09-13] MEDS: LEVOFLOXACIN 500 MG TABLET PO SCH (21:36)
[2018-09-14] MEDS: ALBUTEROL/IPRATROPIUM 3 ML NEB RESP TX SCH ×4 (00:36→19:05)
[2018-09-14 05:15] LABS: Basophils % 0.2 % (0.0-0.8); Hematocrit 36.4 VOL% (35.7-47.0); Hemoglobin 11.2 GM/DL (12.0-16.0); Immature Granulocytes % 1.5 %; Immature Granulocytes Absolute 0.16 #; Lymphocytes # 0.4 10*3/uL (1.4-4.0); Lymphocytes % 4.2 % (21.3-54.2); Mean Corpuscular HGB Conc 30.8 GM/DL (32-36); Mean Corpuscular Hemoglobin 30 PG (27-34); Mean Corpuscular Volume 95.8 FL (87-102); Mean Platelet Volume 10.2 FL (9.6-12.0); Monocytes # 0.5 10*3/uL (0.11-0.8); Monocytes % 4.6 % (1.7-12.7); Neutrophils # 9.2 10*3/uL (1.4-7.4); Neutrophils % 89.5 % (38.7-73.9); Platelet Count 263 T/CUMM (130-400); Red Cell Distribution Width 13.1 % (9.3-17.3); White Blood Count 10.3 T/CUMM (4-12)
[2018-09-14 05:54] LABS: Lymphocytes 4 % (20-55); Platelet Estimate Normal; Segmented Neutrophils 94 % (50-85); Total Cells Counted 100
[2018-09-14 05:55] LABS: Hypochromasia 1+; Microcytosis 1+
[2018-09-14 07:51] LABS: Calcium 8.1 MG/DL (8.5-10.1); Osmolality,Calculated 272.2 MOS/KG (273-304); Potassium 4.6 MMOL/L (3.5-5.1)
[2018-09-14] MEDS: PANTOPRAZOLE 40 MG TABLET PO SCH (09:10)
[2018-09-14] MEDS: guaiFENesin/DM ER 600-30 MG TABLET PO SCH ×2 (09:10→20:15)
[2018-09-14] MEDS: CALCIUM (CARBONATE)/VITAMIN D 600 MG-400 UNIT TABLET PO SCH ×2 (09:10→20:15)
[2018-09-14] MEDS: methylPREDNISolone SOD SUC 40 MG/1 ML VIAL IV SCH (09:11)
[2018-09-14] MEDS: DOCUSATE SODIUM 100 MG CAPSULE PO SCH ×2 (09:11→20:16)
[2018-09-14] MEDS: acetaZOLAMIDE 250 MG TABLET PO SCH (09:11)
[2018-09-14] MEDS: GABAPENTIN 300 MG CAPSULE PO SCH ×3 (09:11→20:16)
[2018-09-14] MEDS ORDERED: predniSONE 20 MG TABLET PO SCH (12:00)
[2018-09-14] MEDS ORDERED: TUBERCULIN SKIN TEST 0.1 ML SYRINGE INTRADERM ONE (16:59)
[2018-09-14] MEDS: ENOXAPARIN 40 MG/0.4 ML SYRINGE SUBCUT SCH (20:16)
[2018-09-14] MEDS: FLUoxetine 20 MG CAPSULE PO SCH (20:16)
[2018-09-14] MEDS: LEVOFLOXACIN 500 MG TABLET PO SCH (20:16)
[2018-09-14] MEDS ORDERED: POLYVINYL ALCOHOL 1.4% OPH SOLN 15 ML BOTTLE BOTH EYES PRN (23:56)
[2018-09-15] MEDS: ALBUTEROL/IPRATROPIUM 3 ML NEB RESP TX SCH ×4 (00:48→19:15)
[2018-09-15 03:41] LABS: Basophils % 0.3 % (0.0-0.8); Eosinophils % 0.1 % (0.00-10.9); Hematocrit 34.5 VOL% (35.7-47.0); Hemoglobin 10.3 GM/DL (12.0-16.0); Immature Granulocytes % 2.3 %; Immature Granulocytes Absolute 0.27 #; Lymphocytes % 16.4 % (21.3-54.2); Mean Corpuscular HGB Conc 29.9 GM/DL (32-36); Mean Corpuscular Hemoglobin 30 PG (27-34); Mean Corpuscular Volume 99.7 FL (87-102); Mean Platelet Volume 9.8 FL (9.6-12.0); Monocytes # 1.4 10*3/uL (0.11-0.8); NRBC # 0.02 10*3/uL; Neutrophils # 8.2 10*3/uL (1.4-7.4); Neutrophils % 68.9 % (38.7-73.9); Platelet Count 249 T/CUMM (130-400); Red Blood Count 3.46 MC/CUMM (3.8-5.5); Red Cell Distribution Width 13.2 % (9.3-17.3); White Blood Count 11.9 T/CUMM (4-12)
[2018-09-15 03:57] LABS: Calcium 8.2 MG/DL (8.5-10.1); Osmolality,Calculated 273.8 MOS/KG (273-304)
[2018-09-15] MEDS: LORazepam 2 MG/1 ML VIAL IV PRN ×2 (06:36→13:55)
[2018-09-15] MEDS: predniSONE 20 MG TABLET PO SCH (08:06)
[2018-09-15] MEDS: guaiFENesin/DM ER 600-30 MG TABLET PO SCH ×2 (08:06→20:34)
[2018-09-15] MEDS: PANTOPRAZOLE 40 MG TABLET PO SCH (08:06)
[2018-09-15] MEDS: acetaZOLAMIDE 250 MG TABLET PO SCH (08:06)
[2018-09-15] MEDS: CALCIUM (CARBONATE)/VITAMIN D 600 MG-400 UNIT TABLET PO SCH ×2 (08:06→20:34)
[2018-09-15] MEDS: DOCUSATE SODIUM 100 MG CAPSULE PO SCH ×2 (08:07→20:34)
[2018-09-15] MEDS: GABAPENTIN 300 MG CAPSULE PO SCH ×3 (08:07→20:34)
[2018-09-15 10:29] LABS: ABG Base Excess 8.8 MMOL/L (-2.5-2.5); ABG HCO3 32.2 MMOL/L (20-26); ABG Oxygen Saturation 82.2 % (95-100); ABG PH 7.273 (7.35-7.45); ABG PO2 50.1 MM HG (80-95); ABG TCO2 35.9 MMOL/L (23-27)
[2018-09-15 10:37] LABS: ABG PCO2 84.4 MM HG (35-48)
[2018-09-15 13:36] LABS: ABG Base Excess 7.7 MMOL/L (-2.5-2.5); ABG Oxygen Saturation 71.9 % (95-100); ABG PH 7.231 (7.35-7.45); ABG PO2 42.2 MM HG (80-95); ABG TCO2 36.2 MMOL/L (23-27)
[2018-09-15 13:40] LABS: ABG PCO2 93.8 MM HG (35-48)
[2018-09-15] MEDS: LEVOFLOXACIN 500 MG TABLET PO SCH (20:33)
[2018-09-15] MEDS: ENOXAPARIN 40 MG/0.4 ML SYRINGE SUBCUT SCH (20:33)
[2018-09-15] MEDS: FLUoxetine 20 MG CAPSULE PO SCH (20:34)
[2018-09-16] MEDS: ALBUTEROL/IPRATROPIUM 3 ML NEB RESP TX SCH ×4 (00:37→20:02)
[2018-09-16] MEDS: MORPHINE 4 MG/1 ML VIAL IV PRN ×3 (03:56→21:50)
[2018-09-16 05:40] LABS: Calcium 8.8 MG/DL (8.5-10.1); Osmolality,Calculated 272.8 MOS/KG (273-304); Potassium 4.4 MMOL/L (3.5-5.1)
[2018-09-16 05:41] LABS: Basophils % 0.3 % (0.0-0.8); Eosinophils % 0.3 % (0.00-10.9); Immature Granulocytes % 2.2 %; Immature Granulocytes Absolute 0.28 #; Lymphocytes # 2.1 10*3/uL (1.4-4.0); Lymphocytes % 16.5 % (21.3-54.2); Mean Corpuscular HGB Conc 29.4 GM/DL (32-36); Mean Corpuscular Hemoglobin 29 PG (27-34); Mean Corpuscular Volume 99.2 FL (87-102); Mean Platelet Volume 10.1 FL (9.6-12.0); Monocytes # 1.4 10*3/uL (0.11-0.8); Monocytes % 10.8 % (1.7-12.7); NRBC # 0.02 10*3/uL; Neutrophils # 8.7 10*3/uL (1.4-7.4); Neutrophils % 69.9 % (38.7-73.9); Platelet Count 269 T/CUMM (130-400); Red Blood Count 3.53 MC/CUMM (3.8-5.5); Red Cell Distribution Width 13.6 % (9.3-17.3); White Blood Count 12.5 T/CUMM (4-12)
[2018-09-16 05:42] LABS: Hemoglobin 10.3 GM/DL (12.0-16.0)
[2018-09-16] MEDS: guaiFENesin/DM ER 600-30 MG TABLET PO SCH ×2 (08:46→20:31)
[2018-09-16] MEDS: predniSONE 20 MG TABLET PO SCH (08:46)
[2018-09-16] MEDS: CALCIUM (CARBONATE)/VITAMIN D 600 MG-400 UNIT TABLET PO SCH ×2 (08:46→20:31)
[2018-09-16] MEDS: acetaZOLAMIDE 250 MG TABLET PO SCH (08:46)
[2018-09-16] MEDS: GABAPENTIN 300 MG CAPSULE PO SCH ×3 (08:46→20:31)
[2018-09-16] MEDS: DOCUSATE SODIUM 100 MG CAPSULE PO SCH ×2 (08:46→20:31)
[2018-09-16] MEDS: PANTOPRAZOLE 40 MG TABLET PO SCH (08:47)
[2018-09-16 09:25] LABS: ABG Base Excess 10.9 MMOL/L (-2.5-2.5); ABG HCO3 34.5 MMOL/L (20-26); ABG PH 7.297 (7.35-7.45); ABG PO2 57.5 MM HG (80-95); ABG TCO2 37.4 MMOL/L (23-27); Allen Test Positive; Pt O2 Delivery Device BIPAP
[2018-09-16 09:28] LABS: ABG PCO2 83.3 MM HG (35-48)
[2018-09-16 10:06] LABS: ABG Oxygen Saturation 90.5 % (95-100)
[2018-09-16] MEDS: THEOPHYLLINE ER (24 HR) 400 MG CAPSULE PO SCH (10:31)
[2018-09-16] MEDS: methylPREDNISolone SOD SUC 40 MG/1 ML VIAL IV SCH ×2 (10:32→16:37)
[2018-09-16 14:31] LABS: ABG Base Excess 7.2 MMOL/L (-2.5-2.5); ABG Oxygen Saturation 93.9 % (95-100); ABG PO2 73.1 MM HG (80-95); ABG TCO2 36.2 MMOL/L (23-27); Allen Test Positive; Pt O2 Delivery Device Other
[2018-09-16 14:34] LABS: ABG PCO2 98.2 MM HG (35-48); ABG PH 7.209 (7.35-7.45)
[2018-09-16] MEDS: ENOXAPARIN 40 MG/0.4 ML SYRINGE SUBCUT SCH (20:30)
[2018-09-16] MEDS: LEVOFLOXACIN 500 MG TABLET PO SCH (20:31)
[2018-09-16] MEDS: FLUoxetine 20 MG CAPSULE PO SCH (20:31)
[2018-09-17] MEDS: methylPREDNISolone SOD SUC 40 MG/1 ML VIAL IV SCH ×3 (01:27→16:04)
[2018-09-17 04:49] LABS: Allen Test Positive; Pt O2 Delivery Device BIPAP
[2018-09-17 04:51] LABS: ABG Base Excess 11.1 MMOL/L (-2.5-2.5); ABG HCO3 34.7 MMOL/L (20-26); ABG Oxygen Saturation 94.3 % (95-100); ABG PH 7.304 (7.35-7.45); ABG PO2 72.9 MM HG (80-95); ABG TCO2 37.3 MMOL/L (23-27)
[2018-09-17 04:53] LABS: ABG PCO2 82.6 MM HG (35-48)
[2018-09-17] MEDS: ALBUTEROL/IPRATROPIUM 3 ML NEB RESP TX SCH ×4 (07:10→18:43)
[2018-09-17] MEDS: acetaZOLAMIDE 250 MG TABLET PO SCH (08:37)
[2018-09-17] MEDS: THEOPHYLLINE ER (24 HR) 400 MG CAPSULE PO SCH (08:37)
[2018-09-17] MEDS: PANTOPRAZOLE 40 MG TABLET PO SCH (08:37)
[2018-09-17] MEDS: DOCUSATE SODIUM 100 MG CAPSULE PO SCH ×2 (08:38→20:27)
[2018-09-17] MEDS: CALCIUM (CARBONATE)/VITAMIN D 600 MG-400 UNIT TABLET PO SCH ×2 (08:38→20:27)
[2018-09-17] MEDS: guaiFENesin/DM ER 600-30 MG TABLET PO SCH ×2 (08:38→20:27)
[2018-09-17] MEDS: GABAPENTIN 300 MG CAPSULE PO SCH ×3 (08:38→20:27)
[2018-09-17] MEDS: MORPHINE 4 MG/1 ML VIAL IV PRN ×2 (08:52→18:35)
[2018-09-17] MEDS ORDERED: NYSTATIN 500,000 UNIT/5 ML UDCUP SWISH/SWAL SCH (12:00)
[2018-09-17] MEDS: ALPRAZolam 0.25 MG TABLET PO PRN (14:10)
[2018-09-17] MEDS: NYSTATIN 500,000 UNIT/5 ML UDCUP SWISH/SWAL SCH ×2 (16:04→20:27)
[2018-09-17] MEDS: LEVOFLOXACIN 500 MG TABLET PO SCH (20:27)
[2018-09-17] MEDS: ENOXAPARIN 40 MG/0.4 ML SYRINGE SUBCUT SCH (20:27)
[2018-09-17] MEDS: FLUoxetine 20 MG CAPSULE PO SCH (20:27)
[2018-09-18] MEDS: NYSTATIN 500,000 UNIT/5 ML UDCUP SWISH/SWAL SCH ×6 (00:51→20:59)
[2018-09-18] MEDS: methylPREDNISolone SOD SUC 40 MG/1 ML VIAL IV SCH ×3 (01:09→16:35)
[2018-09-18] MEDS: ALBUTEROL/IPRATROPIUM 3 ML NEB RESP TX SCH ×4 (01:49→19:00)
[2018-09-18] MEDS: GABAPENTIN 300 MG CAPSULE PO SCH ×3 (08:43→20:26)
[2018-09-18] MEDS: PANTOPRAZOLE 40 MG TABLET PO SCH (08:43)
[2018-09-18] MEDS: guaiFENesin/DM ER 600-30 MG TABLET PO SCH ×2 (08:43→20:26)
[2018-09-18] MEDS: acetaZOLAMIDE 250 MG TABLET PO SCH (08:43)
[2018-09-18] MEDS: THEOPHYLLINE ER (24 HR) 400 MG CAPSULE PO SCH (08:43)
[2018-09-18] MEDS: DOCUSATE SODIUM 100 MG CAPSULE PO SCH ×2 (08:43→20:26)
[2018-09-18] MEDS: CALCIUM (CARBONATE)/VITAMIN D 600 MG-400 UNIT TABLET PO SCH ×2 (08:43→20:26)
[2018-09-18] MEDS: ALPRAZolam 0.25 MG TABLET PO PRN ×2 (10:33→16:35)
[2018-09-18] MEDS: ENOXAPARIN 40 MG/0.4 ML SYRINGE SUBCUT SCH (20:26)
[2018-09-18] MEDS: FLUoxetine 20 MG CAPSULE PO SCH (20:27)
[2018-09-19] MEDS: ALBUTEROL/IPRATROPIUM 3 ML NEB RESP TX SCH ×3 (00:23→12:23)
[2018-09-19] MEDS: methylPREDNISolone SOD SUC 40 MG/1 ML VIAL IV SCH ×2 (01:04→08:38)
[2018-09-19] MEDS: NYSTATIN 500,000 UNIT/5 ML UDCUP SWISH/SWAL SCH ×4 (01:05→12:04)
[2018-09-19 07:45] LABS: Calcium 8.2 MG/DL (8.5-10.1); Osmolality,Calculated 273.1 MOS/KG (273-304); Potassium 4.9 MMOL/L (3.5-5.1)
[2018-09-19 07:51] LABS: Basophils # 0.1 10*3/uL (0.0-0.2); Basophils % 0.4 % (0.0-0.8); Hematocrit 36.8 VOL% (35.7-47.0); Immature Granulocytes % 2.3 %; Immature Granulocytes Absolute 0.38 #; Lymphocytes # 0.5 10*3/uL (1.4-4.0); Lymphocytes % 2.9 % (21.3-54.2); Mean Corpuscular HGB Conc 30.2 GM/DL (32-36); Mean Corpuscular Hemoglobin 29 PG (27-34); Mean Corpuscular Volume 97.6 FL (87-102); Mean Platelet Volume 9.4 FL (9.6-12.0); Monocytes # 0.6 10*3/uL (0.11-0.8); Monocytes % 3.8 % (1.7-12.7); Neutrophils # 14.7 10*3/uL (1.4-7.4); Neutrophils % 90.6 % (38.7-73.9); Platelet Count 335 T/CUMM (130-400); Red Blood Count 3.77 MC/CUMM (3.8-5.5); Red Cell Distribution Width 14.4 % (9.3-17.3); White Blood Count 16.2 T/CUMM (4-12)
[2018-09-19 07:52] LABS: Hemoglobin 11.1 GM/DL (12.0-16.0)
[2018-09-19 07:58] LABS: Band Neutrophils 1 % (0-10); Hypochromasia 1+; Lymphocytes 4 % (20-55); Platelet Estimate Adequate; Segmented Neutrophils 91 % (50-85); Total Cells Counted 100
[2018-09-19] MEDS: PANTOPRAZOLE 40 MG TABLET PO SCH (08:38)
[2018-09-19] MEDS: guaiFENesin/DM ER 600-30 MG TABLET PO SCH (08:38)
[2018-09-19] MEDS: CALCIUM (CARBONATE)/VITAMIN D 600 MG-400 UNIT TABLET PO SCH (08:38)
[2018-09-19] MEDS: GABAPENTIN 300 MG CAPSULE PO SCH (08:38)
[2018-09-19] MEDS: THEOPHYLLINE ER (24 HR) 400 MG CAPSULE PO SCH (08:38)
[2018-09-19] MEDS: DOCUSATE SODIUM 100 MG CAPSULE PO SCH (08:38)
[2018-09-19] MEDS: acetaZOLAMIDE 250 MG TABLET PO SCH (08:53)
[2018-09-19] MEDS ORDERED: HEPARIN LOCK FLUSH 500 UNIT/5 ML SYRINGE IV PRN (11:35)
[2018-09-19] MEDS: ALPRAZolam 0.25 MG TABLET PO PRN (12:04)
[2018-09-19 13:21] VITALS: BP 136/66
== END 2018-09-19 13:21 | disposition swing bed (61) | DRG 190 ==
LOC: EDBD → EDUNIT# → N.ED 15:53 → SUATTDRO 16:34 → N.EDINP 16:34 → N.2E 18:15 → N.ICU 09-15 22:02 → N.5E 09-17 23:06
PROVIDERS: ADMIT Internal Medicine; ATTEND Hospitalist